=== PATIENT | female | born 1965 | race Caucasian/White ===

== ENCOUNTER → 2019-11-06 00:01 | Outpatient (RCR) | payer BC, SELFPAY | LOC: ONCMED 10-11 11:13 | PROVIDERS: Family Provider Family Medicine; Visit Provider Internal Medicine Medical Oncology | DX: Z51.11 Encounter for antineoplastic chemotherapy (principal); C50.111 Malignant neoplasm of central portion of right female breast; C77.3 Secondary and unspecified malignant neoplasm of axilla and upper limb lymph nodes; R51 Headache; F17.200 Nicotine dependence, unspecified, uncomplicated; Z17.0 Estrogen receptor positive status [ER+]; Z79.899 Other long term (current) drug therapy; Z95.828 Presence of other vascular implants and grafts; Z76.89 Persons encountering health services in other specified circumstances | CPT/HCPCS: 36415; 80053 ×2; 85007; 85025 ×4; 96367 ×2; 96372 ×2; 96411; 96413 ×2; 96417; 99214 ×2; J1100 ×2; J1453 ×2; J1642 ×2; J2469 ×2; J2505 ×2; J7040 ×2; J7050 ×2; J9000 ×2; J9070 ×4 ==

== ENCOUNTER 2019-12-06 05:39 | Outpatient (RCR) | payer BC, SELFPAY ==
[2019-11-08 13:17] LABS: Basophils % 0.7 %; Eosinophils % 0.2 %; Hematocrit 30.6 % (37.0-47.0); Hemoglobin 10.1 g/dL (11.5-15.3); Lymphocytes # 1.2 10^3/uL (0.8-4.8); Lymphocytes % 22.2 %; Mean Corpuscular Hemoglobin 32.1 pg (28.0-34.0); Mean Corpuscular Volume 97.1 fL (81-99); Mean Platelet Volume 9.7 fL (7.4-10.4); Monocytes # 0.5 10^3/uL (0.2-0.9); Monocytes % 9.2 %; Neutrophils # 3.6 10^3/uL (1.8-7.7); Neutrophils % 64.4 %; Nucleated Red Blood Cells % 0 %; Platelet Count 258 10^3/cmm (130-400); Red Blood Count 3.15 10^6/uL (4.1-5.3); Red Cell Distribution Width 13.6 % (12.1-15.1); White Blood Count 5.5 10^3/uL (4.0-10.0)
[2019-11-08] MEDS: sodium chloride 0.9% 250 ML 999 ML IV (13:35)
[2019-11-08] MEDS: pegfilgrastim 6 mg/0.6 mL Kit (onpro) SUBCUT (16:38)
--- NOTE | 2019-11-11 22:13 | ONC FU_ITS ---
[facility] Patient Note Patient: Nola Melendez Unit #: [id number]: 1965 Dictated By: Helen RendonDate of Visit: Nov 08, 2019 Onc MED Follow-Up/Prog Note Chief Complaint: Breast cancer. History of Present Illness: Ms Melendez is a 54-year-old woman with grade 2 invasive ductal carcinoma of the right breast, stage IIB (T1c, pN2a, M0), ER/NC positive and HER-2/matias negative. She had presented with an abnormal screening mammogram. The study, from 03/15/2019, showed a suspected spiculated mass with distortion and possible skin deformity in the deep midportion of the right breast centrally. The visualized lower x-ray lymph nodes appeared somewhat more plump or mildly enlarged as well. She had further evaluation with diagnostic mammogram and right breast ultrasound on 04/09/2019. The mammogram showed an irregular mass in the central to inferior right breast measuring approximately 2 cm. Ultrasound showed irregular hypoechoic mass within the central right breast measuring 1.5 x 2.0 x 1.6 cm. The margins were indistinct and there was posterior acoustic shadowing, highly suggestive of malignancy. The right axilla demonstrated at least 2 cortically thickened lymph nodes. She underwent ultrasound guided biopsy of the breast mass and of a right axillary lymph node on 04/26/2019. Pathology on the breast lesion showed grade 2 invasive ductal carcinoma which was ER positive at 94% and NC positive at 74%. The tumor was negative for overexpression of HER-2/matias, 1+ by IHC. The axillary lymph node was positive for metastatic ductal carcinoma with the size of the tumor measuring at least 7 mm. There was no extracapsular extension. The breast prognostic profile on the axillary lymph node showed ER positive at 95% and NC positive at 92%. HER-2/matias was equivocal by IHC (2+), but negative by FISH with amplification ratio 1.06 and 2.1 HER2 signals per cell. Dr Marin had seen her initially on 05/28/2019. At that point, he had recommended further evaluation with Oncotype DX. It showed a recurrence score of 19, corresponding to a recurrence risk of 16% with hormonal therapy, assuming 1-3 positive lymph nodes. A benefit with chemotherapy was not excluded. With those findings, it was felt there was not a definite indication for neoadjuvant chemotherapy. She then proceeded with right breast lumpectomy and right axillary lymph node dissection on 07/20/2019. Pathology showed invasive moderately differentiated mammary carcinoma with lobular differentiation. It measured 1.9 cm in greatest dimension. Focally did show high-grade features. Invasive carcinoma was present at the cranial and anterior margins. There was involvement in 8/8 axillary lymph nodes, the largest measuring 0.8 cm. Extracapsular extension was identified. She then underwent reexcision lumpectomy on 08/23/2019. There was no residual invasive carcinoma identified. Focal atypical lobular hyperplasia was present in the reexcision of the cranial margin, but the final margin was free of ALH. She has been in good general health. She has no prior medical illnesses. Prior surgeries have been limited to right salpingo-oophorectomy for removal of a benign cyst and tubal ligation. She underwent natural menopause at age 50. She does have a history of smoking 1/2 pack of cigarettes daily since age 16. Ms. Melendez was recommended to have 4 cycles of Adriamycin Cytoxan and then weekly Taxol for 12 weeks. She began her first cycle of Adriamycin Cytoxan on 09/26/2019. She also had Neulasta support. She is here today for follow-up. She is due for cycle 4 of 4 Adriamycin/Cytoxan. She continues with Neulasta support as she has had severe neutropenia. Her ANC on 11/05/2019 was 1200. Her Neulasta was given on 10/25/2019. I did request a stat CBC prior to authorizing treatment for her today. She states she has been coughing and has had some significant sinus drainage. She states she is had some wheezing off and on. She is had some chills but denies any actual fever. She is denies any trouble swallowing. She states the sinus symptoms have been there for about 4 days and are not improving, they are getting worse . She states she is coughing enough that it keeps her awake at night. She denies any shortness of breath other than when coughing. She denies any orthopnea. Said no lower extremity edema. She denies any rashes. She states her appetite is fair, comes and goes. 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 She denies any diarrhea or constipation. She is had no complaints of peripheral neuropathy. Other than the severe leukopenia she seems to tolerate Adriamycin Cytoxan well. She is currently having fatigue but states it is no worse than what it has been since the first cycle. Her ECOG is 1. 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 She is anxious to go back to work as much as full-time as she can. Past Medical History: She has had no prior medical illnesses. Past Surgical History: Right salpingo-oopherectomy - cyst removal Tubal ligation Portacatheter placement dr. dennis in 2019 Lumpectomy right breast in 2019 Ultrasound directed biopsy of right breast mass and right axillary lymph node in 2019 Allergies: Augmentin Medications: Dexamethasone (4 mg) Tablet Oral Take as Directed Ibuprofen 4 Tablet (of 200 mg) Oral PRN LORazepam 0.5 - 1 Tablet (of 1 mg) Oral t.i.d. PRN Prochlorperazine Maleate 1 Tablet (of 10 mg) Oral q 4 hours PRN Family History: Ms. Melendez's mother is alive. Ms. Melendez's father at age 75: pancreatic cancer. Ms. Melendez has 1 brother who is alive. She has 5 sisters: 5 alive. Father of pancreatic cancer at age 75. Mother is still living and in good health at age 87. One brother and 5 sisters also are in good health. 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 She is a daily smoker who has smoked 0.5 packs/day for 37 years. She has no history of drinking. She has indicated exposure to the following products: cigarettes. Ms. Melendez reports the following support systems: lives with spouse, significant other, family, or friends, lives in own house, supportive family/friends willing to assist with needs, and adequate transportation available for expected visits. Her diet consists of regular meals. She indicates her activity level as: light exercise. 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 She has history of smoking 1/2 pack of cigarettes daily since age 16. She does not drink alcohol. Review Of Symptoms: Constitutional Denies fevers, chills, night sweats, excessive fatigue or weight loss. Has been having headache intermittently. She states is better than it was on cycle 2. Allergic/Immunologic No reactions. Eyes Denies significant visual changes. No diplopia. No amaurosis. ENMT Denies changes in hearing, sore throat, difficulty or changes in swallowing ability, and/or sinus drainage. She states her mouth has been tender and sore but no lesions. Nystatin and Famvir relieve mouth problems. Hematologic/Lymphatic Denies easy bruising or bleeding. The patient denies any tender or palpable lymph nodes. Respiratory Denies dyspnea on exertion, chest pain, or hemoptysis. Denies orthopnea. She states she is having cough. She says at night sometimes she is coughing a lot puke this is relatively new over the last couple of weeks. She states the stuff she is coughing up is green and thick. Cardiovascular Denies anginal chest pain, palpitations or orthopnea. Gastrointestinal Denies nausea, vomiting (other than with coughing) , diarrhea, GI bleeding, or constipation. Denies change in bowel habits and/or stool color, no heartburn or early satiety. Genitourinary (F) No hematuria, hesitancy, incontinence, vaginal bleeding, discharge or other problems with urination. Musculoskeletal Denies joint pain, swelling or redness. No decreased range of motion. Integumentary Denies chronic rashes, inflammation, ulcerations or skin changes. Neurologic Denies blurred vision, and no areas of focal weakness or numbness. Normal gait. No sensory problems. Psychiatric Denies insomnia, depression, suki or mood swings. Vital Signs: Performed on Nov 08, 2019 16:10 Height - 65.00 in Temperature - 97.1 F (LOW) Pulse - 90 /min Respiration - 18 /min BP - 105/59 mm(hg) O2 Sat - 95 % (LOW) Pain - 0 Fatigue - 0 Performed on Nov 08, 2019 12:49 Height - 65.00 in Weight - 186.6 lbs (LOW) BSA - 1.92 sq.m BMI - 31.05 (HIGH) Temperature - 97.2 F (LOW) Pulse - 89 /min Respiration - 16 /min BP - 129/59 mm(hg) O2 Sat - 99 % Pain - 0,1 - No physically strenuous activity, but ambulatory and able to carry out light or sedentary work (e.g. office work, light house work). (ECOG) Physical Examination: Constitutional Alert, oriented, no acute distress. Skin pink, warm and dry. Head Normocephalic; atraumatic. Eyes Conjunctivae and sclerae are clear and without icterus. Pupils are reactive and equal. Neck Supple without masses or thyromegaly. No jugular venous distension. Hematologic/Lymphatic No petechiae or purpura. No tender or palpable lymph nodes in the cervical or supraclavicular areas. Respiratory Lungs are clear to auscultation without rhonchi or wheezing. Cardiovascular Regular rate and rhythm of heart without murmurs,clicks, gallops or rubs. Abdomen Non-tender, non-distended, no masses, ascites. Back/Spine Non-tender to palpation. Extremities No visible deformities, no cyanosis, clubbing or edema. Musculoskeletal No tenderness or swelling, normal range of motion without obvious weakness. Integumentary No rashes or lesions. Neurologic No sensory or motor deficits, normal cerebellar function, normal gait. Psychiatric Alert and oriented times three. Coherent speech. Verbalizes understanding of our discussions today. Laboratory:Test performed on Oct 18, 2019 11:55 Sodium 135 mmol/L Potassium 3.9 mmol/L Chloride 97 mmol/L CO2 25 mmol/L Anion Gap 16.9 BUN 11 mg/dL Creatinine 0.7 mg/dL Cr Clearance (Est) 129.0800 mL/min eGFR 87.2 mL/min Glucose 100 mg/dl Calcium 9.0 mg/dL Protein, Total 6.7 g/dL Albumin 5.1 g/dL Globulin 1.6 gm/dL Bilirubin, Total 0.3 mg/dL ALT (SGPT) 18 U/L AST (SGOT) 13 U/L Alkaline Phosphatase 101 U/L WBC 1.2 10 3/uL RBC 3.95 10 6/uL HGB 12.5 g/dL HCT 37.9 % MCV 95.9 fl MCH 31.6 pg MCHC 33.0 g/dl RDW 12.0 % Platelet Count 179 10 3/cmm MPV 10.6 fl Neutrophils 0.3 10 3/uL Lymphocytes 0.8 10 3/uL Monocytes 0.1 10 3/uL Eosinophils 0.0 10 3/uL Basophils 0.0 10 3/uL Neutrophil % 24.6 % Lymphocyte % 63.1 % Monocyte % 7.4 % Eosinophil % 0.8 % Basophils % 3.3 % CBC Slide Review SLIDE REVIEW PERFORM SLIDE REVIEW AGREES WITH AUTOMATED RESULTS Test performed on Oct 10, 2019 07:32 Manual Segs % 41 % Manual Bands % 13.0 % Manual Lymphs % 22.0 % Atypical Lymphs % 1.0 % Manual Monos % 15.0 % Manual Eos % 1 % Manual Basos % 1.0 % Metamyelocytes % 5.0 % Myelocytes % 1.0 % Polychromasia TRACE Poikilocytosis 1+ Stomatocytes 1+ Platelet Estimate NORMAL Manual Neutrophils Abs 5.6 10 3/cmm Manual Lymphocytes Abs 2.4 10 3/cmm Manual Monocytes Abs 1.5 10 3/cmm Manual Eosinophils Abs 0.1 10 3/cmm Manual Basophils Abs 0.1 10 3/cmm Impression: 1. Patient with grade 2 invasive ductal carcinoma of the right breast, stage IIB (T1c, pN2a, M0), ER/NC positive and HER-2/matias negative. 2. She underwent ultrasound directed biopsy of right breast mass and right axillary lymph node on 04/26/2019. Her Oncotype DX showed a recurrence score of 19, corresponding to a recurrence risk of 16% with hormonal therapy, assuming 1-3 positive lymph nodes. A benefit with chemotherapy was not excluded. With those findings, Dr Marin did not feel there is a definite indication for neoadjuvant chemotherapy. 3. She underwent right breast lumpectomy with axillary lymph node dissection on 07/20/2019 followed by reexcision lumpectomy with final margins negative. She has now completed her surgery. With involvement in 8/8 axillary lymph nodes she has been recommended to undergo adjuvant chemotherapy with dose dense Adriamycin/cyclophosphamide for 4 cycles followed by weekly Taxol for 12 cycles. She will be given prophylaxis Neulasta. Her baseline echocardiogram from 09/26/2019 shows adequate ejection fraction at 55% with no regional wall motion abnormalities. Port-A-Cath placement in the left subclavian vein per Dr. Dennis was obtained on 09/20/2019. Ms Melendez began her first cycle of adriamycin and Cytoxan on 09/26/2019. She has tolerated it well with expected side effects of neutropenia. Thus far she has not had febrile neutropenia and has tolerated growth factor support well. Plan: 1. Proceed with cycle 4/4 Adriamycin Cytoxan. Continue growth factor support. 2. Bactrim DS twice daily for 10 days for sinusitis and prophylaxis for neutropenia. 3. Tessalon Perles 100 mg 1 or 2 every 8 hours as needed cough. 4. Her CBC for today is pending. I did request a redraw today as her labs from 11/05/2019 revealed a white count of 2.4 hemoglobin was 11 platelet count was 116,000 and ANC was 1200. 5. Continue weekly interim counts. 6. She will be due back in 2 weeks at which time she will transition to the weekly Taxol portion of her chemotherapy. We have discussed the use of steroids prior to the Taxol administration. We did discuss the risk of Taxol including the allergic/infusion reactions. We discussed low blood counts, peripheral neuropathy, nausea vomiting. 7. We did discuss her headaches. She states that she thinks overall they are better. I have asked her to monitor them after today to see if they worsen with the Aloxi. If they are she will need to switch from Aloxi to Zofran for the Taxol as she will be getting it weekly and I would be concerned about her headaches worsen at that point. 8. Baseline echocardiogram from 09/26/2019 reported ejection fraction of 55% with no regional wall motion abnormalities. 9. She had a screening mammography last on 03/15/2019 which recommended additional right views which led to her current diagnosis. Left breast was unremarkable at that time. She did have diagnostic imaging of the right breast including ultrasound on 04/09/2019. 10. Ms. Melendez has been instructed to contact us in the interim should questions or problems arise. Signed By: Helen Rendon-CELENA GANNON MD <<Signature on File>>
[2019-11-14 10:50] LABS: Basophils % 3.2 %; Eosinophils % 0.8 %; Hematocrit 31.4 % (37.0-47.0); Hemoglobin 10.3 g/dL (11.5-15.3); Lymphocytes # 0.5 10^3/uL (0.8-4.8); Mean Corpuscular HGB Conc 32.8 g/dL (30.0-36.0); Mean Corpuscular Hemoglobin 33.2 pg (28.0-34.0); Mean Corpuscular Volume 101.3 fL (81-99); Monocytes % 2.4 %; Neutrophils % 30.4 %; Nucleated Red Blood Cells % 0 %; Platelet Count 164 10^3/cmm (130-400); White Blood Count 1.3 10^3/uL (4.0-10.0)
[2019-11-14 10:59] LABS: Alanine Aminotransferase 8 U/L (0-33); Albumin Level 4.5 g/dL (3.5-5.2); Alkaline Phosphatase 93 IU/L (35-105); Anion Gap 14.9 (5-19); Aspartate Amino Transferase 9 U/L (0-32); Blood Urea Nitrogen 11 mg/dL (6-20); Calcium 9.9 mg/Dl (8.6-10.0); Carbon Dioxide 24 mmol/L (22-29); Chloride 98 mmol/L (98-107); Globulin 2.1 g/dL (1.3-4.6); Glomerular Filtration Rate 104.2 mL/min (90-130); Glucose 115 mg/dL (74-109); Potassium 3.9 mmol/L (3.5-5.1); Sodium 133 mmol/L (136-145); Total Bilirubin 0.4 mg/dL (0.15-1.2); Total Protein 6.6 g/dL (6.6-8.7)
[2019-11-14 12:04] LABS: Neutrophils # 0.4 10^3/uL (1.8-7.7)
[2019-11-14 12:05] LABS: Slide Review Slide Review Perform
[2019-11-21 10:20] LABS: Basophils % 0.6 %; Hematocrit 27.8 % (37.0-47.0); Lymphocytes # 0.8 10^3/uL (0.8-4.8); Lymphocytes % 25.2 %; Mean Corpuscular HGB Conc 32.4 g/dL (30.0-36.0); Mean Corpuscular Hemoglobin 31.9 pg (28.0-34.0); Mean Corpuscular Volume 98.6 fL (81-99); Mean Platelet Volume 10.7 fL (7.4-10.4); Monocytes # 0.3 10^3/uL (0.2-0.9); Monocytes % 7.8 %; Neutrophils # 2.1 10^3/uL (1.8-7.7); Nucleated Red Blood Cells % 0 %; Platelet Count 151 10^3/cmm (130-400); Red Blood Count 2.82 10^6/uL (4.1-5.3); Red Cell Distribution Width 14.3 % (12.1-15.1); White Blood Count 3.3 10^3/uL (4.0-10.0)
[2019-11-21 10:40] LABS: Alanine Aminotransferase 8 U/L (0-33); Albumin Level 4.5 g/dL (3.5-5.2); Alkaline Phosphatase 75 IU/L (35-105); Anion Gap 15.8 (5-19); Aspartate Amino Transferase 9 U/L (0-32); Blood Urea Nitrogen 7 mg/dL (6-20); Calcium 9.6 mg/Dl (8.6-10.0); Carbon Dioxide 25 mmol/L (22-29); Chloride 102 mmol/L (98-107); Globulin 1.7 g/dL (1.3-4.6); Glomerular Filtration Rate 87.2 mL/min (90-130); Glucose 112 mg/dL (74-109); Potassium 3.8 mmol/L (3.5-5.1); Sodium 139 mmol/L (136-145); Total Bilirubin 0.2 mg/dL (0.15-1.2); Total Protein 6.2 g/dL (6.6-8.7)
[2019-11-22] MEDS: sodium chloride 0.9% 250 ML 75 ML IV (13:30)
[2019-11-22] MEDS: acetaminophen 325 mg Tablet 650 MG PO (13:30)
--- NOTE | 2019-11-26 22:03 | ONC FU_ITS ---
[facility] Patient Note Patient: Nola Melendez Unit #: [id number]: 1965 Dictated By: Helen RendonDate of Visit: Nov 22, 2019 Onc MED Follow-Up/Prog Note Chief Complaint: Breast cancer. History of Present Illness: Mrs Melendez is a 54-year-old woman with grade 2 invasive ductal carcinoma of the right breast, stage IIB (T1c, pN2a, M0), ER/IA positive and HER-2/matias negative. She had presented with an abnormal screening mammogram. The study, from 03/15/2019, showed a suspected spiculated mass with distortion and possible skin deformity in the deep midportion of the right breast centrally. The visualized lower x-ray lymph nodes appeared somewhat more plump or mildly enlarged as well. She had further evaluation with diagnostic mammogram and right breast ultrasound on 04/09/2019. The mammogram showed an irregular mass in the central to inferior right breast measuring approximately 2 cm. Ultrasound showed irregular hypoechoic mass within the central right breast measuring 1.5 x 2.0 x 1.6 cm. The margins were indistinct and there was posterior acoustic shadowing, highly suggestive of malignancy. The right axilla demonstrated at least 2 cortically thickened lymph nodes. She underwent ultrasound guided biopsy of the breast mass and of a right axillary lymph node on 04/26/2019. Pathology on the breast lesion showed grade 2 invasive ductal carcinoma which was ER positive at 94% and IA positive at 74%. The tumor was negative for overexpression of HER-2/matias, 1+ by IHC. The axillary lymph node was positive for metastatic ductal carcinoma with the size of the tumor measuring at least 7 mm. There was no extracapsular extension. The breast prognostic profile on the axillary lymph node showed ER positive at 95% and IA positive at 92%. HER-2/matias was equivocal by IHC (2+), but negative by FISH with amplification ratio 1.06 and 2.1 HER2 signals per cell. Dr Marin had seen her initially on 05/28/2019. At that point, he had recommended further evaluation with Oncotype DX. It showed a recurrence score of 19, corresponding to a recurrence risk of 16% with hormonal therapy, assuming 1-3 positive lymph nodes. A benefit with chemotherapy was not excluded. With those findings, it was felt there was not a definite indication for neoadjuvant chemotherapy. She then proceeded with right breast lumpectomy and right axillary lymph node dissection on 07/20/2019. Pathology showed invasive moderately differentiated mammary carcinoma with lobular differentiation. It measured 1.9 cm in greatest dimension. Focally did show high-grade features. Invasive carcinoma was present at the cranial and anterior margins. There was involvement in 8/8 axillary lymph nodes, the largest measuring 0.8 cm. Extracapsular extension was identified. She then underwent reexcision lumpectomy on 08/23/2019. There was no residual invasive carcinoma identified. Focal atypical lobular hyperplasia was present in the reexcision of the cranial margin, but the final margin was free of ALH. She has been in good general health. She has no prior medical illnesses. Prior surgeries have been limited to right salpingo-oophorectomy for removal of a benign cyst and tubal ligation. She underwent natural menopause at age 50. She does have a history of smoking 1/2 pack of cigarettes daily since age 16. Ms. Melendez was recommended to have 4 cycles of Adriamycin Cytoxan and then weekly Taxol for 12 weeks. She began her first cycle of Adriamycin Cytoxan on 09/26/2019. She also had Neulasta support. She is here today for follow-up. She completed 4 cycles later months by toxin on May 08, 2020. She will now begin weekly Taxol for 12 weeks. She states overall she is feeling pretty good. She is been able to work some. She denies any new concerns. She is had no new pain. She states she does have some pre-existing neuropathy but states is no worse than what it has been. She denies any shortness of breath orthopnea. She is had no chest pain or palpitations. She denies any fever, chills or any signs of infection for at least the last 72 hours. My concern today is that her eyes just water all the time . She has had complete alopecia although starting to have some hair growth return. She denies any sneezing, discolored nasal drainage, drainage from the eyes swelling or pain. She has not really tried anything for it. She is advised she can try [id number] antihistamine such as Claritin or Benadryl for does not make her sleepy. She is instructed let us know if that is not improving. She denies any diarrhea or constipation. States her bladder is normal. Her ECOG is 0. Past Medical History: She has had no prior medical illnesses. Past Surgical History: Right salpingo-oopherectomy - cyst removal Tubal ligation Portacatheter placement dr. dennis in 2019 Lumpectomy right breast in 2019 Ultrasound directed biopsy of right breast mass and right axillary lymph node in 2019 Allergies: Augmentin Medications: Dexamethasone (4 mg) Tablet Oral Take as Directed Ibuprofen 4 Tablet (of 200 mg) Oral PRN LORazepam 0.5 - 1 Tablet (of 1 mg) Oral t.i.d. PRN Prochlorperazine Maleate 1 Tablet (of 10 mg) Oral q 4 hours PRN Family History: Ms. Melendez's mother is alive. Ms. Melendez's father at age 75: pancreatic cancer. Ms. Melendez has 1 brother who is alive. She has 5 sisters: 5 alive. Father of pancreatic cancer at age 75. Mother is still living and in good health at age 87. One brother and 5 sisters also are in good health. Social History: Ms. 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 She is a daily smoker who has smoked 0.5 packs/day for 37 years. She has no history of drinking. She has indicated exposure to the following products: cigarettes. Ms. Melendez reports the following support systems: lives with spouse, significant other, family, or friends, lives in own house, supportive family/friends willing to assist with needs, and adequate transportation available for expected visits. Her diet consists of regular meals. She indicates her activity level as: light exercise. 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 She has history of smoking 1/2 pack of cigarettes daily since age 16. She does not drink alcohol. Review Of Symptoms: Constitutional Denies fevers, chills, night sweats, excessive fatigue or weight loss. Allergic/Immunologic No reactions. Eyes Denies significant visual changes. No diplopia. No amaurosis. ENMT Denies changes in hearing, sore throat, difficulty or changes in swallowing ability, and/or sinus drainage. She states her mouth has been tender and sore but no lesions. Nystatin and Famvir relieve mouth problems. Hematologic/Lymphatic Denies easy bruising or bleeding. The patient denies any tender or palpable lymph nodes. Respiratory Denies dyspnea on exertion, chest pain, or hemoptysis. Denies orthopnea. Cardiovascular Denies anginal chest pain, palpitations or orthopnea. Gastrointestinal Denies nausea, vomiting (other than with coughing) , diarrhea, GI bleeding, or constipation. Denies change in bowel habits and/or stool color or early satiety. States she had one episode on Tuesday emesis. She states she has burning in her acid with flex symptoms. She states that the taste was acidy as well. She has had some heartburn off and on but not as severe. Genitourinary (F) No hematuria, hesitancy, incontinence, vaginal bleeding, discharge or other problems with urination. Musculoskeletal Denies joint pain, swelling or redness. No decreased range of motion. Integumentary Denies chronic rashes, inflammation, ulcerations or skin changes. Neurologic Denies blurred vision, and no areas of focal weakness or numbness. Normal gait. No sensory problems. Psychiatric Denies insomnia, depression, suki or mood swings. Vital Signs: Performed on Nov 22, 2019 16:15 Height - 65.00 in Temperature - 98.7 F Pulse - 97 /min Respiration - 18 /min BP - 108/70 mm(hg) O2 Sat - 95 % (LOW) Pain - 0 Fatigue - 0 Performed on Nov 22, 2019 12:38 Height - 65.00 in Weight - 184.2 lbs (LOW) BSA - 1.91 sq.m BMI - 30.65 (HIGH) Temperature - 97.0 F (LOW) Pulse - 106 /min (HIGH) Respiration - 24 /min BP - 144/76 mm(hg) (HIGH) O2 Sat - 100 % Pain - 0,0 - Fully active, able to carry on all predisease activities without restrictions. (ECOG) Physical Examination: Constitutional Alert, oriented, no acute distress. Skin pink, warm and dry. Head Normocephalic; atraumatic. Eyes Conjunctivae and sclerae are clear and without icterus. Pupils are reactive and equal. ENMT No oral exudates, ulcers, masses, thrush but does have mild mucositis. Oropharynx clear. Tongue irritated but no lesions. Neck Supple without masses or thyromegaly. No jugular venous distension. Hematologic/Lymphatic No petechiae or purpura. No tender or palpable lymph nodes in the cervical or supraclavicular areas. Respiratory Lungs are clear to auscultation without rhonchi or wheezing. Cardiovascular Regular rate and rhythm of heart without murmurs,clicks, gallops or rubs. Abdomen Non-tender, non-distended, no masses, ascites. Back/Spine Non-tender to palpation. Extremities No visible deformities, no cyanosis, clubbing or edema. Musculoskeletal No tenderness or swelling, normal range of motion without obvious weakness. Integumentary No rashes or lesions. Neurologic No sensory or motor deficits, normal cerebellar function, normal gait. Psychiatric Alert and oriented times three. Coherent speech. Verbalizes understanding of our discussions today. Laboratory:Test performed on Nov 21, 2019 09:47 Glucose 112 mg/dL BUN 7 mg/dL Creatinine 0.7 mg/dL Cr Clearance (Est) 129.08 mL/min Sodium 139 mmol/L Potassium 3.8 mmol/L Chloride 102 mmol/L CO2 25 mmol/L Calcium 9.6 mg/dL Protein, Total 6.2 g/dL Albumin 4.5 g/dL Bilirubin, Total 0.2 mg/dL Alkaline Phosphatase 75 IU/L AST (SGOT) 9 IU/L ALT (SGPT) 8 IU/L WBC 3.3 10^9/L RBC 2.82 10^12/L HGB 9.0 g/dL HCT 27.8 % MCV 98.6 fl MCH 31.9 pg MCHC 32.4 g/dL RDW 14.3 % Platelet Count 151 10^9/L MPV 10.7 fL Neutrophils (Gran) 2.1 10^9/L Lymphocytes 0.8 10^9/L Monocytes 0.3 10^9/L Eosinophils 0.0 10^9/L Basophils 0.0 10^9/L Manual Lymphocytes 25.2 % Manual Monocytes 7.8 % Manual Eosinophils 0.0 % Manual Basophils 0.6 % NRBCs 0.0 /100 WBC Test performed on Nov 14, 2019 10:14 Globulin 2.1 g/dL Neutrophil % 30.4 % Lymphocyte % 40.0 % Monocyte % 2.4 % Basophils % 3.2 % Test performed on Oct 18, 2019 11:55 Anion Gap 16.9 eGFR 87.2 mL/min Eosinophil % 0.8 % CBC Slide Review SLIDE REVIEW PERFORM SLIDE REVIEW AGREES WITH AUTOMATED RESULTS Test performed on Oct 10, 2019 07:32 Manual Segs % 41 % Manual Bands % 13.0 % Atypical Lymphs % 1.0 % Metamyelocytes % 5.0 % Myelocytes % 1.0 % Polychromasia TRACE Poikilocytosis 1+ Stomatocytes 1+ Platelet Estimate NORMAL Manual Neutrophils Abs 5.6 10 3/cmm Manual Lymphocytes Abs 2.4 10 3/cmm Manual Monocytes Abs 1.5 10 3/cmm Manual Eosinophils Abs 0.1 10 3/cmm Manual Basophils Abs 0.1 10 3/cmm Impression: 1. Patient with grade 2 invasive ductal carcinoma of the right breast, stage IIB (T1c, pN2a, M0), ER/IA positive and HER-2/matias negative. 2. She underwent ultrasound directed biopsy of right breast mass and right axillary lymph node on 04/26/2019. Her Oncotype DX showed a recurrence score of 19, corresponding to a recurrence risk of 16% with hormonal therapy, assuming 1-3 positive lymph nodes. A benefit with chemotherapy was not excluded. With those findings, Dr Marin did not feel there is a definite indication for neoadjuvant chemotherapy. 3. She underwent right breast lumpectomy with axillary lymph node dissection on 07/20/2019 followed by reexcision lumpectomy with final margins negative. She has now completed her surgery. With involvement in 8/8 axillary lymph nodes she has been recommended to undergo adjuvant chemotherapy with dose dense Adriamycin/cyclophosphamide for 4 cycles followed by weekly Taxol for 12 cycles. She will be given prophylaxis Neulasta. Her baseline echocardiogram from 09/26/2019 shows adequate ejection fraction at 55% with no regional wall motion abnormalities. Port-A-Cath placement in the left subclavian vein per Dr. Dennis was obtained on 09/20/2019. Ms Melendez began her first cycle of adriamycin and Cytoxan on 09/26/2019. She has tolerated it well with expected side effects of neutropenia. Thus far she has not had febrile neutropenia and has tolerated growth factor support well. Mrs. Melendez received her last dose of mitomycin Cytoxan on November 08, 2019. She now begins weekly paclitaxel. Plan: 1. Proceed with week 1 paclitaxel. She completed Adriamycin Cytoxan on 11/08/2019. 2. Steroid compliance confirmed. 3. Labs from November 21, 2019 were reviewed in detail and discussed with Ms. Melendez and her . WBC 3.3, hemoglobin 9 platelets 151,000 ANC is 2100 creatinine 0.7 LFTs are normal. 4. She states she is been having some watery eyes most likely this is from the patient she is been advised she could try Claritin for now let us know if that is not working. 5. She does have some pre-existing neuropathy but states is no worse at this time. 6. We did discuss using a PPI for her heartburn but she does not want start that at this time. She states she will try Tums or Mylanta and let us know she if is doing a regular basis. 7. We will plan to have her return in 1 week with CBC CMP which time she will be due for week 2/12 of paclitaxel. She was reminded to take her steroids. 8. Baseline echocardiogram from 09/26/2019 reported ejection fraction of 55% with no regional wall motion abnormalities. 9. She had a screening mammography last on 03/15/2019 which recommended additional right views which led to her current diagnosis. Left breast was unremarkable at that time. She did have diagnostic imaging of the right breast including ultrasound on 04/09/2019. 10. Ms. Melendez has been instructed to contact us in the interim should questions or problems arise. 11. We did discuss possible side effects of the paclitaxel including worsening neuropathy, nausea, low blood counts, fatigue and anaphylaxis and infusion reaction such as fever, chills, hypertension, hypotension, rash, shortness of breath, anxiety, chest pain, shortness of breath, diaphoresis amongst others. Signed By: Helen Rednon-, AOCNP Gulshan Marin MD <<Signature on File>>
[2019-11-28 10:50] LABS: Basophils # 0.1 10^3/uL (0.0-0.1); Basophils % 1.6 %; Eosinophils % 0.3 %; Hematocrit 28.2 % (37.0-47.0); Hemoglobin 9.4 g/dL (11.5-15.3); Lymphocytes # 0.8 10^3/uL (0.8-4.8); Lymphocytes % 25.5 %; Mean Corpuscular HGB Conc 33.3 g/dL (30.0-36.0); Mean Corpuscular Hemoglobin 33.6 pg (28.0-34.0); Mean Corpuscular Volume 100.7 fL (81-99); Mean Platelet Volume 10.1 fL (7.4-10.4); Monocytes # 0.1 10^3/uL (0.2-0.9); Neutrophils # 2.2 10^3/uL (1.8-7.7); Neutrophils % 67.4 %; Nucleated Red Blood Cells % 0 %; Platelet Count 323 10^3/cmm (130-400); Red Cell Distribution Width 16.1 % (12.1-15.1); White Blood Count 3.2 10^3/uL (4.0-10.0)
[2019-11-28 11:02] LABS: Alanine Aminotransferase 13 U/L (0-33); Albumin Level 4.3 g/dL (3.5-5.2); Alkaline Phosphatase 68 IU/L (35-105); Anion Gap 15.9 (5-19); Aspartate Amino Transferase 10 U/L (0-32); Blood Urea Nitrogen 9 mg/dL (6-20); Calcium 10.1 mg/Dl (8.6-10.0); Carbon Dioxide 24 mmol/L (22-29); Chloride 97 mmol/L (98-107); Globulin 2.3 g/dL (1.3-4.6); Glomerular Filtration Rate 87.2 mL/min (90-130); Glucose 114 mg/dL (74-109); Potassium 3.9 mmol/L (3.5-5.1); Sodium 133 mmol/L (136-145); Total Bilirubin 0.3 mg/dL (0.15-1.2); Total Protein 6.6 g/dL (6.6-8.7)
[2019-11-29] MEDS: sodium chloride 0.9% 250 ML 75 ML IV (09:10)
[2019-11-29] MEDS: acetaminophen 325 mg Tablet 650 MG PO (09:10)
--- NOTE | 2019-12-01 12:55 | ONC FU_ITS ---
Dr. Mrain Patient Follow-Up Note Patient: Nola Melendez Unit #: [id number]: 1965 Dicatated By: Gulshan Marin M.D.Date of Visit:Nov 29, 2019 Onc Med Follow-up/Prog Note Chief Complaint: Breast cancer. History of Present Illness: This is a 53-year-old woman with grade 2 invasive ductal carcinoma of the right breast, stage IIB (T1c, pN2a, M0), ER/WV positive and HER-2/matias negative. She had presented with an abnormal screening mammogram. The study, from 03/15/2019, showed a suspected spiculated mass with distortion and possible skin deformity in the deep midportion of the right breast centrally. The visualized lower x-ray lymph nodes appeared somewhat more plump or mildly enlarged as well. She had further evaluation with diagnostic mammogram and right breast ultrasound on 04/09/2019. The mammogram showed an irregular mass in the central to inferior right breast measuring approximately 2 cm. Ultrasound showed irregular hypoechoic mass within the central right breast measuring 1.5 x 2.0 x 1.6 cm. The margins were indistinct and there was posterior acoustic shadowing, highly suggestive of malignancy. The right axilla demonstrated at least 2 cortically thickened lymph nodes. She underwent ultrasound guided biopsy of the breast mass and of a right axillary lymph node on 04/26/2019. Pathology on the breast lesion showed grade 2 invasive ductal carcinoma which was ER positive at 94% and WV positive at 74%. The tumor was negative for overexpression of HER-2/matias, 1+ by IHC. The axillary lymph node was positive for metastatic ductal carcinoma with the size of the tumor measuring at least 7 mm. There was no extracapsular extension. The breast prognostic profile on the axillary lymph node showed ER positive at 95% and WV positive at 92%. HER-2/matias was equivocal by IHC (2+), but negative by FISH with amplification ratio 1.06 and 2.1 HER2 signals per cell. I had seen her initially on 05/28/2019. At that point I had recommended further evaluation with Oncotype DX. It showed a recurrence score of 19, corresponding to a recurrence risk of 16% with hormonal therapy, assuming 1-3 positive lymph nodes. A benefit with chemotherapy was not excluded. With those findings, I did not feel there is a definite indication for neoadjuvant chemotherapy. She then proceeded with right breast lumpectomy and right axillary lymph node dissection on 07/20/2019. Pathology showed invasive moderately differentiated mammary carcinoma with lobular differentiation. It measured 1.9 cm in greatest dimension. Focally did show high-grade features. Invasive carcinoma was present at the cranial and anterior margins. There was involvement in 8/8 axillary lymph nodes, the largest measuring 0.8 cm. Extracapsular extension was identified. She then underwent reexcision lumpectomy on 08/23/2019. There was no residual invasive carcinoma identified. Focal atypical lobular hyperplasia was present in the reexcision of the cranial margin, but the final margin was free of ALH. She has been in good general health. She has no prior medical illnesses. Prior surgeries have been limited to right salpingo-oophorectomy for removal of a benign cyst and tubal ligation. She underwent natural menopause at age 50. She does have a history of smoking 1/2 pack of cigarettes daily since age 16. INTERIM HISTORY: She began cycle 1 of Adriamycin/cyclophosphamide on 09/26/2019. She had significant fatigue following the chemotherapy, but she was able to tolerate it with acceptable toxicity. She then continued with cycle 2 on 10/11/2019, with cycle 3 on 10/25/2019, and with cycle 4 on 11/08/2019. On 11/22/2019 she began her 1st of 12 planned weekly cycles of paclitaxel. She tolerated it without acute toxicity. She is seen for a scheduled visit. She has been feeling pretty good generally. She has tolerated her initial infusion of paclitaxel without significant toxicity. She says her energy is a little better now. She is still working. ECOG score is 1. Her appetite is about the same. She does not have fever. She has been having some hot flashes and sweating. Her mouth occasionally feels a little sore. She has a little bit of cough. She does not complain of shortness of breath or chest pain. She has had no nausea. Bowel function has been okay. She has frequent urination. She has had pain occasionally in her legs, mainly the thighs. She has just occasional numbness/tingling in her fingertips. Medications: Dexamethasone (4 mg) Tablet Oral Take as Directed, Ibuprofen 4 Tablet (of 200 mg) Oral PRN, LORazepam 0.5 - 1 Tablet (of 1 mg) Oral t.i.d. PRN, Prochlorperazine Maleate 1 Tablet (of 10 mg) Oral q 4 hours PRN Allergies: Augmentin Review of Systems: Constitutional - Her energy is pretty good. She continues to work. Her appetite is good and her weight is down a few pounds. No fever or chills. She has hot flashes and sweating. ECOG score is 1, ENMT - No sinus congestion/drainage. No mouth sores. She has occasional sore throat. No difficulty swallowing, Hematologic/Lymphatic - No abnormal bruising or bleeding, Respiratory - No shortness of breath. She has a slight cough. No pleuritic pain or hemoptysis, Cardiovascular - No angina pain. No palpitations, Gastrointestinal - No nausea or vomiting. No heartburn or acid reflux. No diarrhea or constipation. No blood in the stool or black stools, Genitourinary (F) - No dysuria or hematuria. She has urinary frequency. No urgency or incontinence, Musculoskeletal - She occasionally has pain in her thighs, Integumentary - No skin complications, Neurologic - No headache or dizziness. She has occasional numbness and tingling in her fingertips, Psychiatric - No anxiety or depression. No insomnia. Vital Signs: Performed on Nov 29, 2019 08:24 Height - 65.00 in Weight - 180.2 lbs (LOW) BSA - 1.89 sq.m BMI - 29.99 Temperature - 97.4 F (LOW) Pulse - 117 /min (HIGH) Respiration - 20 /min BP - 129/75 mm(hg) O2 Sat - 99 % Pain - 0 Physical Examination: Constitutional - She looks pretty good generally, Eyes - Sclerae nonicteric. Conjunctivae clear, ENMT - No lesions noted in the oral cavity, Hematologic/Lymphatic - No cervical, clavicular, or axillary adenopathy, Respiratory - Lungs sound clear, Cardiovascular - Heart rhythm is regular. There is no murmur, gallop, or rub noted, Abdomen - Soft. Liver and spleen are not enlarged. There is no abdominal mass or ascites noted and there is no inguinal adenopathy, Extremities - No edema, Neurologic - No focal neurologic deficits noted. Lab/Imaging: CBC shows hemoglobin 9.4 g, white blood cell count 3200, and platelet count 323,000. Comprehensive metabolic profile is unremarkable. Impression: 1. Patient with grade 2 invasive ductal carcinoma of the right breast, stage IIB (T1c, pN2a, M0), ER/WV positive and HER-2/matias negative. 2. She underwent ultrasound directed biopsy of right breast mass and right axillary lymph node on 04/26/2019. Her Oncotype DX showed a recurrence score of 19, corresponding to a recurrence risk of 16% with hormonal therapy, assuming 1-3 positive lymph nodes. A benefit with chemotherapy was not excluded. With those findings, I did not feel there was a definite indication for neoadjuvant chemotherapy. 3. She underwent right breast lumpectomy with axillary lymph node dissection on 07/20/2019 followed by reexcision lumpectomy with final margins negative. She is undergoing adjuvant chemotherapy with dose dense Adriamycin/cyclophosphamide followed by weekly Taxol. She completed 4 cycles of Adriamycin/cyclophosphamide from 09/26/2019 thru 11/08/2019. She had significant fatigue with it, but she otherwise tolerated it well. She then began her 1st of 12 planned weekly cycles of paclitaxel on 11/22/2019. She has been having some pain in the thighs following that treatment, and she also is having some slight numbness/tingling in the fingertips. She has moderately anemic, but overall she appears to be tolerating treatment very well. Plan: She will proceed with week 2 paclitaxel. The dosage remain the same. She returns in 1 week. Signed By: Gulshan Marin M.D. <<Signature on File>>
[2019-12-05 09:28] LABS: Basophils % 1.1 %; Eosinophils # 0.1 10^3/uL (0.0-0.8); Eosinophils % 2.2 %; Hematocrit 30.2 % (37.0-47.0); Hemoglobin 9.8 g/dL (11.5-15.3); Lymphocytes # 0.6 10^3/uL (0.8-4.8); Lymphocytes % 20.2 %; Mean Corpuscular HGB Conc 32.5 g/dL (30.0-36.0); Mean Corpuscular Hemoglobin 34.9 pg (28.0-34.0); Mean Corpuscular Volume 107.5 fL (81-99); Mean Platelet Volume 10.1 fL (7.4-10.4); Monocytes # 0.1 10^3/uL (0.2-0.9); Monocytes % 4.4 %; Neutrophils # 1.9 10^3/uL (1.8-7.7); Neutrophils % 71.4 %; Nucleated Red Blood Cells % 0 %; Platelet Count 306 10^3/cmm (130-400); Red Blood Count 2.81 10^6/uL (4.1-5.3); Red Cell Distribution Width 18.6 % (12.1-15.1); White Blood Count 2.7 10^3/uL (4.0-10.0)
[2019-12-05 09:41] LABS: Alanine Aminotransferase 22 U/L (0-33); Albumin Level 4.4 g/dL (3.5-5.2); Alkaline Phosphatase 70 IU/L (35-105); Anion Gap 14.8 (5-19); Aspartate Amino Transferase 16 U/L (0-32); Blood Urea Nitrogen 10 mg/dL (6-20); Calcium 9.8 mg/dL (8.5-10.5); Carbon Dioxide 25 mmol/L (22-29); Chloride 98 mmol/L (98-107); Globulin 2.6 g/dL (1.3-4.6); Glomerular Filtration Rate 74.7 mL/min (90-130); Glucose 141 mg/dL (74-109); Potassium 3.8 mmol/L (3.5-5.1); Sodium 134 mmol/L (136-145); Total Bilirubin 0.3 mg/dL (0.15-1.2)
[2019-12-06] MEDS: sodium chloride 0.9% 250 ML 75 ML IV (09:15)
[2019-12-06] MEDS: acetaminophen 325 mg Tablet 650 MG PO (09:35)
== END 2019-12-07 23:59 | disposition home or self-care (01) ==
LOC: ONCMED 05:39
PROVIDERS: Nurse Practitioner; Family Provider Family Medicine; Visit Provider Internal Medicine Medical Oncology
DX: Z51.11 Encounter for antineoplastic chemotherapy (principal); C50.111 Malignant neoplasm of central portion of right female breast; C77.3 Secondary and unspecified malignant neoplasm of axilla and upper limb lymph nodes; D70.1 Agranulocytosis secondary to cancer chemotherapy; T45.1X5A Adverse effect of antineoplastic and immunosuppressive drugs, initial encounter; F17.210 Nicotine dependence, cigarettes, uncomplicated; J32.9 Chronic sinusitis, unspecified; R05 Cough; R51 Headache; D64.9 Anemia, unspecified; Z17.0 Estrogen receptor positive status [ER+]
CPT/HCPCS: 36415; 80053; 85025; 96367; 96372; 96413; 96417; 99214; J1100; J1200; J1453; J2405; J2469; J2505; J3490; J7040; J7050; J9000; J9070; J9267

== ENCOUNTER 2020-01-03 05:46 | Outpatient (RCR) | payer BC, SELFPAY ==
[2019-12-12 07:57] LABS: Eosinophils # 0.1 10^3/uL (0.0-0.8); Eosinophils % 3.4 %; Hematocrit 32.4 % (37.0-47.0); Hemoglobin 10.6 g/dL (11.5-15.3); Lymphocytes # 1.1 10^3/uL (0.8-4.8); Lymphocytes % 25.9 %; Mean Corpuscular HGB Conc 32.7 g/dL (30.0-36.0); Mean Corpuscular Volume 106.9 fL (81-99); Mean Platelet Volume 9.6 fL (7.4-10.4); Monocytes # 0.4 10^3/uL (0.2-0.9); Monocytes % 9.1 %; Neutrophils # 2.5 10^3/uL (1.8-7.7); Neutrophils % 59.4 %; Nucleated Red Blood Cells % 0 %; Platelet Count 373 10^3/cmm (130-400); Red Blood Count 3.03 10^6/uL (4.1-5.3); Red Cell Distribution Width 19.1 % (12.1-15.1); White Blood Count 4.2 10^3/uL (4.0-10.0)
[2019-12-12 08:12] LABS: Alanine Aminotransferase 22 U/L (0-33); Albumin Level 4.5 g/dL (3.5-5.2); Alkaline Phosphatase 78 IU/L (35-105); Anion Gap 13.8 (5-19); Aspartate Amino Transferase 16 U/L (0-32); Blood Urea Nitrogen 7 mg/dL (6-20); Calcium 10.1 mg/dL (8.5-10.5); Carbon Dioxide 25 mmol/L (22-29); Chloride 101 mmol/L (98-107); Globulin 2.8 g/dL (1.3-4.6); Glomerular Filtration Rate 87.2 mL/min (90-130); Glucose 113 mg/dL (65-115); Potassium 3.8 mmol/L (3.5-5.1); Sodium 136 mmol/L (136-145); Total Bilirubin 0.2 mg/dL (0.15-1.2); Total Protein 7.3 g/dL (6.6-8.7)
[2019-12-13] MEDS: acetaminophen 325 mg Tablet 650 MG PO (12:00)
[2019-12-13] MEDS: sodium chloride 0.9% 250 ML IV (12:05)
--- NOTE | 2019-12-16 17:42 | ONC FU_ITS ---
[facility] Patient Note Patient: Nola Melendez Unit #: [id number]: 1965 Dictated By: Helen RendonDate of Visit: Dec 13, 2019 Onc MED Follow-Up/Prog Note Chief Complaint: Breast cancer. History of Present Illness: Mrs Melendez is a 54-year-old woman with grade 2 invasive ductal carcinoma of the right breast, stage IIB (T1c, pN2a, M0), ER/NM positive and HER-2/matias negative. She had presented with an abnormal screening mammogram. The study, from 03/15/2019, showed a suspected spiculated mass with distortion and possible skin deformity in the deep midportion of the right breast centrally. The visualized lower x-ray lymph nodes appeared somewhat more plump or mildly enlarged as well. She had further evaluation with diagnostic mammogram and right breast ultrasound on 04/09/2019. The mammogram showed an irregular mass in the central to inferior right breast measuring approximately 2 cm. Ultrasound showed irregular hypoechoic mass within the central right breast measuring 1.5 x 2.0 x 1.6 cm. The margins were indistinct and there was posterior acoustic shadowing, highly suggestive of malignancy. The right axilla demonstrated at least 2 cortically thickened lymph nodes. She underwent ultrasound guided biopsy of the breast mass and of a right axillary lymph node on 04/26/2019. Pathology on the breast lesion showed grade 2 invasive ductal carcinoma which was ER positive at 94% and NM positive at 74%. The tumor was negative for overexpression of HER-2/matias, 1+ by IHC. The axillary lymph node was positive for metastatic ductal carcinoma with the size of the tumor measuring at least 7 mm. There was no extracapsular extension. The breast prognostic profile on the axillary lymph node showed ER positive at 95% and NM positive at 92%. HER-2/matias was equivocal by IHC (2+), but negative by FISH with amplification ratio 1.06 and 2.1 HER2 signals per cell. Dr Marin had seen her initially on 05/28/2019. At that point, he had recommended further evaluation with Oncotype DX. It showed a recurrence score of 19, corresponding to a recurrence risk of 16% with hormonal therapy, assuming 1-3 positive lymph nodes. A benefit with chemotherapy was not excluded. With those findings, it was felt there was not a definite indication for neoadjuvant chemotherapy. She then proceeded with right breast lumpectomy and right axillary lymph node dissection on 07/20/2019. Pathology showed invasive moderately differentiated mammary carcinoma with lobular differentiation. It measured 1.9 cm in greatest dimension. Focally did show high-grade features. Invasive carcinoma was present at the cranial and anterior margins. There was involvement in 8/8 axillary lymph nodes, the largest measuring 0.8 cm. Extracapsular extension was identified. She then underwent reexcision lumpectomy on 08/23/2019. There was no residual invasive carcinoma identified. Focal atypical lobular hyperplasia was present in the reexcision of the cranial margin, but the final margin was free of ALH. She has been in good general health. She has no prior medical illnesses. Prior surgeries have been limited to right salpingo-oophorectomy for removal of a benign cyst and tubal ligation. She underwent natural menopause at age 50. She does have a history of smoking 1/2 pack of cigarettes daily since age 16. Ms. Melendez was recommended to have 4 cycles of Adriamycin Cytoxan and then weekly Taxol for 12 weeks. She began her first cycle of Adriamycin Cytoxan on 09/26/2019. She also had Neulasta support. She is here today for follow-up. She completed 4 cycles later months by toxin on May 08, 2020. She began weekly Taxol for 12 weeks on November 22, 2019. She has tolerated it well thus far. This will be her fourth week. She states overall she continues to do well. She is working some. She states if she is just too tired or feels washed out she will just go home and that is fine with work. She denies any fever chills but states she thinks she had a stomach bug on Tuesday she did have quite a bit of diarrhea. She did have some nausea but states it did not last very long at all. She states the diarrhea has resolved currently as well. She states her family had however had the same symptoms in the past around for about a week before she got it. She states her now has symptoms of bronchitis and that he is coughing. His been productive cough and he has been wheezing. She does not have any antibiotics on hand in the event that she develops the same symptoms. She denies any sore throat. She states her mouth is doing better she still has some intermittent mouth sores but is relieved with her current regimen. She denies any new pain. She is had no new neuropathy. She states she thinks she is doing pretty good overall. Her appetite count of comes and goes. She denies any pain. Her ECOG is 1. Past Medical History: She has had no prior medical illnesses. Past Surgical History: Right salpingo-oopherectomy - cyst removal Tubal ligation Portacatheter placement dr. dennis in 2019 Lumpectomy right breast in 2019 Ultrasound directed biopsy of right breast mass and right axillary lymph node in 2019 Allergies: Augmentin Medications: Dexamethasone (4 mg) Tablet Oral Take as Directed Ibuprofen 4 Tablet (of 200 mg) Oral PRN LORazepam 0.5 - 1 Tablet (of 1 mg) Oral t.i.d. PRN Prochlorperazine Maleate 1 Tablet (of 10 mg) Oral q 4 hours PRN Family History: Ms. Melendez's mother is alive. Ms. Melendez's father at age 75: pancreatic cancer. Ms. Melendez has 1 brother who is alive. She has 5 sisters: 5 alive. Father of pancreatic cancer at age 75. Mother is still living and in good health at age 87. One brother and 5 sisters also are in good health. Social History: Ms. 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 She is a daily smoker who has smoked 0.5 packs/day for 37 years. She has no history of drinking. She has indicated exposure to the following products: cigarettes. Ms. Melendez reports the following support systems: lives with spouse, significant other, family, or friends, lives in own house, supportive family/friends willing to assist with needs, and adequate transportation available for expected visits. Her diet consists of regular meals. She indicates her activity level as: light exercise. 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 She has history of smoking 1/2 pack of cigarettes daily since age 16. She does not drink alcohol. Review Of Symptoms: Constitutional Denies fevers, chills, night sweats, excessive fatigue or weight loss. Allergic/Immunologic No reactions. Eyes Denies significant visual changes. No diplopia. No amaurosis. ENMT Denies changes in hearing, sore throat, difficulty or changes in swallowing ability, and/or sinus drainage. She states her mouth has been tender and sore but no lesions. Nystatin and Famvir relieve mouth problems. Hematologic/Lymphatic Denies easy bruising or bleeding. The patient denies any tender or palpable lymph nodes. Respiratory Denies dyspnea on exertion, chest pain, or hemoptysis. Denies orthopnea. Cardiovascular Denies anginal chest pain, palpitations or orthopnea. Gastrointestinal Denies nausea, vomiting with chemotherapy but did have diarrhea on Tuesday and thinks it was the stomach bug her family had had. Resolved currently. She denies any GI bleeding, or constipation. Denies change in bowel habits and/or stool color or early satiety. Heart burn is much better. Genitourinary (F) No hematuria, hesitancy, incontinence, vaginal bleeding, discharge or other problems with urination. Musculoskeletal Denies joint pain, swelling or redness. No decreased range of motion. Integumentary Denies chronic rashes, inflammation, ulcerations or skin changes. Neurologic Denies blurred vision, and no areas of focal weakness or numbness. Normal gait. No sensory problems. Psychiatric Denies insomnia, depression, suki or mood swings. Vital Signs: Performed on Dec 13, 2019 11:14 Height - 65.00 in Weight - 178.4 lbs (LOW) BSA - 1.88 sq.m BMI - 29.69 Temperature - 97.6 F (LOW) Pulse - 103 /min (HIGH) Respiration - 18 /min BP - 129/64 mm(hg) O2 Sat - 99 % Pain - 0,1 - No physically strenuous activity, but ambulatory and able to carry out light or sedentary work (e.g. office work, light house work). (ECOG) Physical Examination: Constitutional Alert, oriented, no acute distress. Skin pink, warm and dry. Head Normocephalic; atraumatic. Eyes Conjunctivae and sclerae are clear and without icterus. Pupils are reactive and equal. ENMT No oral exudates, ulcers, masses, thrush but does have mild mucositis. Oropharynx clear. Tongue slightly irritated but no lesions. Neck Supple without masses or thyromegaly. No jugular venous distension. Hematologic/Lymphatic No petechiae or purpura. No tender or palpable lymph nodes in the cervical or supraclavicular areas. Respiratory Lungs are clear to auscultation without rhonchi or wheezing. Cardiovascular Regular rate and rhythm of heart without murmurs,clicks, gallops or rubs. Abdomen Non-tender, non-distended, no masses, ascites. Back/Spine Non-tender to palpation. Extremities No visible deformities, no cyanosis, clubbing or edema. Musculoskeletal No tenderness or swelling, normal range of motion without obvious weakness. Integumentary No rashes or lesions. Neurologic No sensory or motor deficits, normal cerebellar function, normal gait. Psychiatric Alert and oriented times three. Coherent speech. Verbalizes understanding of our discussions today. Laboratory:Test performed on Dec 12, 2019 07:40 Sodium 136 mmol/L Potassium 3.8 mmol/L Chloride 101 mmol/L CO2 25 mmol/L Anion Gap 13.8 BUN 7 mg/dL Creatinine 0.7 mg/dL Cr Clearance (Est) 121.1900 mL/min eGFR 87.2 mL/min Glucose 113 mg/dL Calcium 10.1 mg/dL Protein, Total 7.3 g/dL Albumin 4.5 g/dL Globulin 2.8 g/dL Bilirubin, Total 0.2 mg/dL ALT (SGPT) 22 U/L AST (SGOT) 16 U/L Alkaline Phosphatase 78 IU/L WBC 4.2 10 3/uL RBC 3.03 10 6/uL HGB 10.6 g/dL HCT 32.4 % MCV 106.9 fL MCH 35.0 pg MCHC 32.7 g/dL RDW 19.1 % Platelet Count 373 10 3/cmm MPV 9.6 fL Neutrophils 2.5 10 3/uL Lymphocytes 1.1 10 3/uL Monocytes 0.4 10 3/uL Eosinophils 0.1 10 3/uL Basophils 0.0 10 3/uL Neutrophil % 59.4 % Lymphocyte % 25.9 % Monocyte % 9.1 % Eosinophil % 3.4 % Basophils % 1.0 % Impression: 1. Patient with grade 2 invasive ductal carcinoma of the right breast, stage IIB (T1c, pN2a, M0), ER/NM positive and HER-2/matias negative. 2. She underwent ultrasound directed biopsy of right breast mass and right axillary lymph node on 04/26/2019. Her Oncotype DX showed a recurrence score of 19, corresponding to a recurrence risk of 16% with hormonal therapy, assuming 1-3 positive lymph nodes. A benefit with chemotherapy was not excluded. With those findings, Dr Marin did not feel there is a definite indication for neoadjuvant chemotherapy. 3. She underwent right breast lumpectomy with axillary lymph node dissection on 07/20/2019 followed by reexcision lumpectomy with final margins negative. She has now completed her surgery. With involvement in 8/8 axillary lymph nodes she has been recommended to undergo adjuvant chemotherapy with dose dense Adriamycin/cyclophosphamide for 4 cycles followed by weekly Taxol for 12 cycles. She will be given prophylaxis Neulasta. Her baseline echocardiogram from 09/26/2019 shows adequate ejection fraction at 55% with no regional wall motion abnormalities. Port-A-Cath placement in the left subclavian vein per Dr. Dennis was obtained on 09/20/2019. Ms Melendez began her first cycle of adriamycin and Cytoxan on 09/26/2019. She has tolerated it well with expected side effects of neutropenia. Thus far she has not had febrile neutropenia and has tolerated growth factor support well. Mrs. Melendez received her last dose of mitomycin Cytoxan on November 08, 2019. She is currently undergoing treatment with weekly paclitaxel. She has tolerated it well thus far. Plan: 1. Proceed with week 4/12 paclitaxel. She completed Adriamycin Cytoxan on 11/08/2019. 2. Steroid compliance confirmed. 3. Labs from December 12, 2019 were reviewed in detail and discussed with Ms. Melendez and her . WBC 4.2, hemoglobin 10.6 platelets 373,000 ANC is 2500 creatinine 0.7 LFTs are normal. 4. She states she does not have any antibiotics at home. Will send in Zpack to have on hand in the event she develops bronchitis symptoms. 5. She does have some pre-existing neuropathy but states is no worse at this time. 6. We will plan to have her return in 1 week with CBC CMP which time she will be due for week 03/18 of paclitaxel. She was reminded to take her steroids. 7. She was reminded that we can do hydration if needed should the diarrhea return. 8. Baseline echocardiogram from 09/26/2019 reported ejection fraction of 55% with no regional wall motion abnormalities. 9. She had a screening mammography last on 03/15/2019 which recommended additional right views which led to her current diagnosis. Left breast was unremarkable at that time. She did have diagnostic imaging of the right breast including ultrasound on 04/09/2019. 10. Mrs. Melendez has been instructed to contact us in the interim should questions or problems arise. Signed By: Helen Rendon-, AOCNP Gulshan Mairn MD <<Signature on File>>
[2019-12-19 08:39] LABS: Basophils # 0.1 10^3/uL (0.0-0.1); Basophils % 1.3 %; Eosinophils # 0.2 10^3/uL (0.0-0.8); Eosinophils % 3.3 %; Hematocrit 33.2 % (37.0-47.0); Hemoglobin 10.6 g/dL (11.5-15.3); Lymphocytes # 1.3 10^3/uL (0.8-4.8); Lymphocytes % 23.1 %; Mean Corpuscular HGB Conc 31.9 g/dL (30.0-36.0); Mean Corpuscular Hemoglobin 34.5 pg (28.0-34.0); Mean Corpuscular Volume 108.1 fL (81-99); Monocytes # 0.3 10^3/uL (0.2-0.9); Monocytes % 4.6 %; Neutrophils # 3.6 10^3/uL (1.8-7.7); Nucleated Red Blood Cells % 0 %; Platelet Count 396 10^3/cmm (130-400); Red Blood Count 3.07 10^6/uL (4.1-5.3); Red Cell Distribution Width 18.3 % (12.1-15.1); White Blood Count 5.4 10^3/uL (4.0-10.0)
[2019-12-19 08:56] LABS: Alanine Aminotransferase 17 U/L (0-33); Albumin Level 4.7 g/dL (3.5-5.2); Alkaline Phosphatase 69 IU/L (35-105); Anion Gap 15.8 (5-19); Aspartate Amino Transferase 16 U/L (0-32); Blood Urea Nitrogen 9 mg/dL (6-20); Calcium 10.1 mg/dL (8.5-10.5); Carbon Dioxide 25 mmol/L (22-29); Chloride 101 mmol/L (98-107); Globulin 2.6 g/dL (1.3-4.6); Glomerular Filtration Rate 57.8 mL/min (90-130); Glucose 95 mg/dL (65-115); Potassium 3.8 mmol/L (3.5-5.1); Sodium 138 mmol/L (136-145); Total Bilirubin 0.3 mg/dL (0.15-1.2); Total Protein 7.3 g/dL (6.6-8.7)
[2019-12-20] MEDS: sodium chloride 0.9% 250 ML 300 ML IV (10:55)
[2019-12-20] MEDS: acetaminophen 325 mg Tablet 650 MG PO (15:00)
--- NOTE | 2019-12-23 20:17 | ONC FU_ITS ---
[facility] Patient Note Patient: Nola Melendez Unit #: [id number]: 1965 Dictated By: Helen RendonDate of Visit: Dec 20, 2019 Onc MED Follow-Up/Prog Note Chief Complaint: Breast cancer. History of Present Illness: Mrs Melendez is a 54-year-old woman with grade 2 invasive ductal carcinoma of the right breast, stage IIB (T1c, pN2a, M0), ER/MO positive and HER-2/matias negative. She had presented with an abnormal screening mammogram. The study, from 03/15/2019, showed a suspected spiculated mass with distortion and possible skin deformity in the deep midportion of the right breast centrally. The visualized lower x-ray lymph nodes appeared somewhat more plump or mildly enlarged as well. She had further evaluation with diagnostic mammogram and right breast ultrasound on 04/09/2019. The mammogram showed an irregular mass in the central to inferior right breast measuring approximately 2 cm. Ultrasound showed irregular hypoechoic mass within the central right breast measuring 1.5 x 2.0 x 1.6 cm. The margins were indistinct and there was posterior acoustic shadowing, highly suggestive of malignancy. The right axilla demonstrated at least 2 cortically thickened lymph nodes. She underwent ultrasound guided biopsy of the breast mass and of a right axillary lymph node on 04/26/2019. Pathology on the breast lesion showed grade 2 invasive ductal carcinoma which was ER positive at 94% and MO positive at 74%. The tumor was negative for overexpression of HER-2/matias, 1+ by IHC. The axillary lymph node was positive for metastatic ductal carcinoma with the size of the tumor measuring at least 7 mm. There was no extracapsular extension. The breast prognostic profile on the axillary lymph node showed ER positive at 95% and MO positive at 92%. HER-2/matias was equivocal by IHC (2+), but negative by FISH with amplification ratio 1.06 and 2.1 HER2 signals per cell. Dr Marin had seen her initially on 05/28/2019. At that point, he had recommended further evaluation with Oncotype DX. It showed a recurrence score of 19, corresponding to a recurrence risk of 16% with hormonal therapy, assuming 1-3 positive lymph nodes. A benefit with chemotherapy was not excluded. With those findings, it was felt there was not a definite indication for neoadjuvant chemotherapy. She then proceeded with right breast lumpectomy and right axillary lymph node dissection on 07/20/2019. Pathology showed invasive moderately differentiated mammary carcinoma with lobular differentiation. It measured 1.9 cm in greatest dimension. Focally did show high-grade features. Invasive carcinoma was present at the cranial and anterior margins. There was involvement in 8/8 axillary lymph nodes, the largest measuring 0.8 cm. Extracapsular extension was identified. She then underwent reexcision lumpectomy on 08/23/2019. There was no residual invasive carcinoma identified. Focal atypical lobular hyperplasia was present in the reexcision of the cranial margin, but the final margin was free of ALH. She has been in good general health. She has no prior medical illnesses. Prior surgeries have been limited to right salpingo-oophorectomy for removal of a benign cyst and tubal ligation. She underwent natural menopause at age 50. She does have a history of smoking 1/2 pack of cigarettes daily since age 16. Ms. Melendez was recommended to have 4 cycles of Adriamycin Cytoxan and then weekly Taxol for 12 weeks. She began her first cycle of Adriamycin Cytoxan on 09/26/2019. She also had Neulasta support. Ms Melendez is here today for follow-up. She completed 4 cycles of adriamycin and Cytoxan on November 08, 2019. She began weekly Taxol for 12 weeks on November 22, 2019. She has tolerated it well thus far. This will be her fifth week. She has had no recurrent diarrhea. She has not had cough or congestion. She denies any nausea or vomiting. She state she has been having right ear pain for 2-3 days. It has not been draining. She denies fever or sore throat. Her mouth is ribbon lap machine tender and the Nystatin does not seem to be working as well as it has been. She states her legs fall asleep occasionally but that is not new and is no worse than her normal. She denies any new concerns other that her ear pain. She has been working up to 8 hours a day 2-3 days a week the last 2 weeks. She states she is tired at the end of her shift, but she is tolerating it well otherwise. Her ECOG is 1. Past Medical History: She has had no prior medical illnesses. Past Surgical History: Right salpingo-oopherectomy - cyst removal Tubal ligation Portacatheter placement dr. dennis in 2019 Lumpectomy right breast in 2019 Ultrasound directed biopsy of right breast mass and right axillary lymph node in 2019 Allergies: Augmentin Medications: Dexamethasone (4 mg) Tablet Oral Take as Directed Ibuprofen 4 Tablet (of 200 mg) Oral PRN LORazepam 0.5 - 1 Tablet (of 1 mg) Oral t.i.d. PRN Prochlorperazine Maleate 1 Tablet (of 10 mg) Oral q 4 hours PRN Family History: Ms. Melendez's mother is alive. Ms. Melendez's father at age 75: pancreatic cancer. Ms. Melendez has 1 brother who is alive. She has 5 sisters: 5 alive. Father of pancreatic cancer at age 75. Mother is still living and in good health at age 87. One brother and 5 sisters also are in good health. 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 She is a daily smoker who has smoked 0.5 packs/day for 37 years. She has no history of drinking. She has indicated exposure to the following products: cigarettes. Ms. Melendez reports the following support systems: lives with spouse, significant other, family, or friends, lives in own house, supportive family/friends willing to assist with needs, and adequate transportation available for expected visits. Her diet consists of regular meals. She indicates her activity level as: light exercise. 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 She has history of smoking 1/2 pack of cigarettes daily since age 16. She does not drink alcohol. Review Of Symptoms: Constitutional Denies fevers, chills, night sweats, excessive fatigue or weight loss. Allergic/Immunologic No reactions. Eyes Denies significant visual changes. No diplopia. No amaurosis. ENMT Denies changes in hearing, sore throat, difficulty or changes in swallowing ability, and/or sinus drainage. She states her mouth has been tender and sore but no lesions. Nystatin and Famvir had been relieving mouth problems, but Nystatin may not be working as well now. Right ear hurting for 2-3 days. Hematologic/Lymphatic Denies easy bruising or bleeding. The patient denies any tender or palpable lymph nodes. Respiratory Denies dyspnea on exertion, chest pain, or hemoptysis. Denies orthopnea. Cardiovascular Denies anginal chest pain, palpitations or orthopnea. Gastrointestinal Denies nausea, vomiting with chemotherapy. Denies recurrent diarrhea. She denies any GI bleeding, or constipation. Denies change in bowel habits and/or stool color or early satiety. Heart burn is much better. Genitourinary (F) No hematuria, hesitancy, incontinence, vaginal bleeding, discharge or other problems with urination. Musculoskeletal Denies joint pain, swelling or redness. No decreased range of motion. Integumentary Denies chronic rashes, inflammation, ulcerations or skin changes. Neurologic Denies blurred vision, and no areas of focal weakness or numbness. Normal gait. No sensory problems. Psychiatric Denies insomnia, depression, suki or mood swings. Vital Signs: Performed on Dec 20, 2019 10:10 Height - 65.00 in Weight - 175.6 lbs (LOW) BSA - 1.87 sq.m BMI - 29.22 Temperature - 98.2 F (LOW) Pulse - 114 /min (HIGH) Respiration - 16 /min BP - 129/72 mm(hg) O2 Sat - 99 % Pain - 0 Fatigue - 8,1 - No physically strenuous activity, but ambulatory and able to carry out light or sedentary work (e.g. office work, light house work). (ECOG) Physical Examination: Constitutional Alert, oriented, no acute distress. Skin pink, warm and dry. Head Normocephalic; atraumatic. Eyes Conjunctivae and sclerae are clear and without icterus. Pupils are reactive and equal. ENMT No oral exudates, ulcers, masses, thrush but does have mild mucositis. Oropharynx clear. Tongue slightly irritated but no lesions. Neck Supple without masses or thyromegaly. No jugular venous distension. Hematologic/Lymphatic No petechiae or purpura. No tender or palpable lymph nodes in the cervical or supraclavicular areas. Respiratory Lungs are clear to auscultation without rhonchi or wheezing. Cardiovascular Regular rate and rhythm of heart without murmurs,clicks, gallops or rubs. Abdomen Non-tender, non-distended, no masses, ascites. Back/Spine Non-tender to palpation. Extremities No visible deformities, no cyanosis, clubbing or edema. Musculoskeletal No tenderness or swelling, normal range of motion without obvious weakness. Integumentary No rashes or lesions. Neurologic No sensory or motor deficits, normal cerebellar function, normal gait. Psychiatric Alert and oriented times three. Coherent speech. Verbalizes understanding of our discussions today. Laboratory:Test performed on Dec 19, 2019 08:10 Sodium 138 mmol/L Potassium 3.8 mmol/L Chloride 101 mmol/L CO2 25 mmol/L Anion Gap 15.8 BUN 9 mg/dL Creatinine 1.0 mg/dL Cr Clearance (Est) 84.8300 mL/min eGFR 57.8 mL/min Glucose 95 mg/dL Calcium 10.1 mg/dL Protein, Total 7.3 g/dL Albumin 4.7 g/dL Globulin 2.6 g/dL Bilirubin, Total 0.3 mg/dL ALT (SGPT) 17 U/L AST (SGOT) 16 U/L Alkaline Phosphatase 69 IU/L WBC 5.4 10 3/uL RBC 3.07 10 6/uL HGB 10.6 g/dL HCT 33.2 % MCV 108.1 fL MCH 34.5 pg MCHC 31.9 g/dL RDW 18.3 % Platelet Count 396 10 3/cmm MPV 10.0 fL Neutrophils 3.6 10 3/uL Lymphocytes 1.3 10 3/uL Monocytes 0.3 10 3/uL Eosinophils 0.2 10 3/uL Basophils 0.1 10 3/uL Neutrophil % 67.0 % Lymphocyte % 23.1 % Monocyte % 4.6 % Eosinophil % 3.3 % Basophils % 1.3 % Test performed on Nov 21, 2019 09:47 Manual Lymphocytes 25.2 % Manual Monocytes 7.8 % Manual Eosinophils 0.0 % Manual Basophils 0.6 % NRBCs 0.0 /100 WBC Test performed on Oct 18, 2019 11:55 CBC Slide Review SLIDE REVIEW PERFORM SLIDE REVIEW AGREES WITH AUTOMATED RESULTS Test performed on Oct 10, 2019 07:32 Manual Segs % 41 % Manual Bands % 13.0 % Atypical Lymphs % 1.0 % Metamyelocytes % 5.0 % Myelocytes % 1.0 % Polychromasia TRACE Poikilocytosis 1+ Stomatocytes 1+ Platelet Estimate NORMAL Manual Neutrophils Abs 5.6 10 3/cmm Manual Lymphocytes Abs 2.4 10 3/cmm Manual Monocytes Abs 1.5 10 3/cmm Manual Eosinophils Abs 0.1 10 3/cmm Manual Basophils Abs 0.1 10 3/cmm Impression: 1. Patient with grade 2 invasive ductal carcinoma of the right breast, stage IIB (T1c, pN2a, M0), ER/MO positive and HER-2/matias negative. 2. She underwent ultrasound directed biopsy of right breast mass and right axillary lymph node on 04/26/2019. Her Oncotype DX showed a recurrence score of 19, corresponding to a recurrence risk of 16% with hormonal therapy, assuming 1-3 positive lymph nodes. A benefit with chemotherapy was not excluded. With those findings, Dr Marin did not feel there is a definite indication for neoadjuvant chemotherapy. 3. She underwent right breast lumpectomy with axillary lymph node dissection on 07/20/2019 followed by reexcision lumpectomy with final margins negative. She has now completed her surgery. With involvement in 8/8 axillary lymph nodes she has been recommended to undergo adjuvant chemotherapy with dose dense Adriamycin/cyclophosphamide for 4 cycles followed by weekly Taxol for 12 cycles. She will be given prophylaxis Neulasta. Her baseline echocardiogram from 09/26/2019 shows adequate ejection fraction at 55% with no regional wall motion abnormalities. Port-A-Cath placement in the left subclavian vein per Dr. Dennis was obtained on 09/20/2019. Ms Melendez began her first cycle of adriamycin and Cytoxan on 09/26/2019. She has tolerated it well with expected side effects of neutropenia. Thus far she has not had febrile neutropenia and has tolerated growth factor support well. Mrs. Melendez received her last dose of mitomycin Cytoxan on November 08, 2019. She is currently undergoing treatment with weekly paclitaxel. She has tolerated it well thus far. Plan: 1. Proceed with week 5/12 paclitaxel. She completed Adriamycin Cytoxan on 11/08/2019. 2. Steroid compliance confirmed. 3. Labs from December 18, 2019 were reviewed in detail and discussed with Ms. Melendez and her . WBC 5.4, hemoglobin 10.6 platelets 396,000 ANC is 3600 creatinine 1.0 LFTs are normal. 4. Will send in ear drops for rod media externis. Also will send in Diflucan 100 mgg po daily to see if will help mouth. 5. She does have some pre-existing neuropathy but states is no worse at this time. 6. We will plan to have her return in 1 week with CBC CMP which time she will be due for week 04/18 of paclitaxel. She was reminded to take her steroids. 7. She was reminded that we can do hydration if needed should the diarrhea return. 8. Baseline echocardiogram from 09/26/2019 reported ejection fraction of 55% with no regional wall motion abnormalities. 9. She had a screening mammography last on 03/15/2019 which recommended additional right views which led to her current diagnosis. Left breast was unremarkable at that time. She did have diagnostic imaging of the right breast including ultrasound on 04/09/2019. 10. Ms. Melendez has been instructed to contact us in the interim should questions or problems arise. Signed By: Helen Rendon-, AOCNP Gulshan Marin MD <<Signature on File>>
[2019-12-26 11:07] LABS: Basophils % 1.1 %; Eosinophils # 0.1 10^3/uL (0.0-0.8); Eosinophils % 2.2 %; Hematocrit 32.4 % (37.0-47.0); Hemoglobin 10.5 g/dL (11.5-15.3); Lymphocytes # 0.8 10^3/uL (0.8-4.8); Lymphocytes % 20.9 %; Mean Corpuscular HGB Conc 32.4 g/dL (30.0-36.0); Mean Corpuscular Hemoglobin 35.5 pg (28.0-34.0); Mean Corpuscular Volume 109.5 fL (81-99); Mean Platelet Volume 9.8 fL (7.4-10.4); Monocytes # 0.2 10^3/uL (0.2-0.9); Monocytes % 5.5 %; Neutrophils # 2.5 10^3/uL (1.8-7.7); Neutrophils % 69.8 %; Nucleated Red Blood Cells % 0 %; Platelet Count 333 10^3/cmm (130-400); Red Blood Count 2.96 10^6/uL (4.1-5.3); Red Cell Distribution Width 17.2 % (12.1-15.1); White Blood Count 3.6 10^3/uL (4.0-10.0)
[2019-12-26 11:18] LABS: Alanine Aminotransferase 18 U/L (0-33); Albumin Level 4.5 g/dL (3.5-5.2); Alkaline Phosphatase 73 IU/L (35-105); Anion Gap 12.9 (5-19); Aspartate Amino Transferase 15 U/L (0-32); Blood Urea Nitrogen 8 mg/dL (6-20); Calcium 9.9 mg/dL (8.5-10.5); Carbon Dioxide 27 mmol/L (22-29); Chloride 100 mmol/L (98-107); Globulin 2.6 g/dL (1.3-4.6); Glomerular Filtration Rate 87.2 mL/min (90-130); Glucose 102 mg/dL (65-115); Potassium 3.9 mmol/L (3.5-5.1); Sodium 136 mmol/L (136-145); Total Bilirubin 0.2 mg/dL (0.15-1.2); Total Protein 7.1 g/dL (6.6-8.7)
[2019-12-26 19:00] LABS: Vitamin B12 323 pg/mL (232-1245)
--- NOTE | 2019-12-31 09:34 | ONC FU_ITS ---
[facility] Patient Note Patient: Nola Melendez Unit #: [id number]: 1965 Dictated By: Helen RendonDate of Visit: Dec 27, 2019 Onc MED Follow-Up/Prog Note Chief Complaint: Breast cancer. History of Present Illness: Mrs Melendez is a 54-year-old woman with grade 2 invasive ductal carcinoma of the right breast, stage IIB (T1c, pN2a, M0), ER/MA positive and HER-2/matias negative. She had presented with an abnormal screening mammogram. The study, from 03/15/2019, showed a suspected spiculated mass with distortion and possible skin deformity in the deep midportion of the right breast centrally. The visualized lower x-ray lymph nodes appeared somewhat more plump or mildly enlarged as well. She had further evaluation with diagnostic mammogram and right breast ultrasound on 04/09/2019. The mammogram showed an irregular mass in the central to inferior right breast measuring approximately 2 cm. Ultrasound showed irregular hypoechoic mass within the central right breast measuring 1.5 x 2.0 x 1.6 cm. The margins were indistinct and there was posterior acoustic shadowing, highly suggestive of malignancy. The right axilla demonstrated at least 2 cortically thickened lymph nodes. She underwent ultrasound guided biopsy of the breast mass and of a right axillary lymph node on 04/26/2019. Pathology on the breast lesion showed grade 2 invasive ductal carcinoma which was ER positive at 94% and MA positive at 74%. The tumor was negative for overexpression of HER-2/matias, 1+ by IHC. The axillary lymph node was positive for metastatic ductal carcinoma with the size of the tumor measuring at least 7 mm. There was no extracapsular extension. The breast prognostic profile on the axillary lymph node showed ER positive at 95% and MA positive at 92%. HER-2/matias was equivocal by IHC (2+), but negative by FISH with amplification ratio 1.06 and 2.1 HER2 signals per cell. Dr Marin had seen her initially on 05/28/2019. At that point, he had recommended further evaluation with Oncotype DX. It showed a recurrence score of 19, corresponding to a recurrence risk of 16% with hormonal therapy, assuming 1-3 positive lymph nodes. A benefit with chemotherapy was not excluded. With those findings, it was felt there was not a definite indication for neoadjuvant chemotherapy. She then proceeded with right breast lumpectomy and right axillary lymph node dissection on 07/20/2019. Pathology showed invasive moderately differentiated mammary carcinoma with lobular differentiation. It measured 1.9 cm in greatest dimension. Focally did show high-grade features. Invasive carcinoma was present at the cranial and anterior margins. There was involvement in 8/8 axillary lymph nodes, the largest measuring 0.8 cm. Extracapsular extension was identified. She then underwent reexcision lumpectomy on 08/23/2019. There was no residual invasive carcinoma identified. Focal atypical lobular hyperplasia was present in the reexcision of the cranial margin, but the final margin was free of ALH. She has been in good general health. She has no prior medical illnesses. Prior surgeries have been limited to right salpingo-oophorectomy for removal of a benign cyst and tubal ligation. She underwent natural menopause at age 50. She does have a history of smoking 1/2 pack of cigarettes daily since age 16. Ms. Melendez was recommended to have 4 cycles of Adriamycin Cytoxan and then weekly Taxol for 12 weeks. She began her first cycle of Adriamycin Cytoxan on 09/26/2019. She also had Neulasta support. Ms Melendez is here today for follow-up. She completed 4 cycles of adriamycin and Cytoxan on November 08, 2019. She began weekly Taxol for 12 weeks on November 22, 2019. She has tolerated it well thus far. This will be her 6th week. She has had no recurrent diarrhea. She denies cough or congestion. She denies any nausea or vomiting. She is having significant neuropathy in that she states she has dropped things a couple times because she cannot feel them in her fingertips. She is had some neuropathy in her feet as well and states occasionally when she is walking down the [place] the [facility] she will have to hang onto the rail because her legs will does feel weak and she cannot feel my feet for a few seconds . She states that is not getting better and seems to be getting just a hair bit worse with the treatment. She denies any new pain otherwise. She denies any fever or chills. She denies any bladder changes. She states her appetite is good. She is trying to work some and tolerates this well but feels washed out at the end of the day . She recovers well with rest. Her ECOG is 1. Past Medical History: She has had no prior medical illnesses. Past Surgical History: Right salpingo-oopherectomy - cyst removal Tubal ligation Portacatheter placement dr. dennis in 2019 Lumpectomy right breast in 2019 Ultrasound directed biopsy of right breast mass and right axillary lymph node in 2019 Allergies: Augmentin Medications: Dexamethasone (4 mg) Tablet Oral Take as Directed Ibuprofen 4 Tablet (of 200 mg) Oral PRN LORazepam 0.5 - 1 Tablet (of 1 mg) Oral t.i.d. PRN Prochlorperazine Maleate 1 Tablet (of 10 mg) Oral q 4 hours PRN Family History: Ms. Melendez's mother is alive. Ms. Melendez's father at age 75: pancreatic cancer. Ms. Melendez has 1 brother who is alive. She has 5 sisters: 5 alive. Father of pancreatic cancer at age 75. Mother is still living and in good health at age 87. One brother and 5 sisters also are in good health. 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 She is a daily smoker who has smoked 0.5 packs/day for 37 years. She has no history of drinking. She has indicated exposure to the following products: cigarettes. Ms. Melendez reports the following support systems: lives with spouse, significant other, family, or friends, lives in own house, supportive family/friends willing to assist with needs, and adequate transportation available for expected visits. Her diet consists of regular meals. She indicates her activity level as: light exercise. 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 She has history of smoking 1/2 pack of cigarettes daily since age 16. She does not drink alcohol. Review Of Symptoms: Constitutional Denies fevers, chills, night sweats, excessive fatigue or weight loss. Allergic/Immunologic No reactions. Eyes Denies significant visual changes. No diplopia. No amaurosis. ENMT Denies changes in hearing, sore throat, difficulty or changes in swallowing ability, and/or sinus drainage. She states her mouth improved. Hematologic/Lymphatic Denies easy bruising or bleeding. The patient denies any tender or palpable lymph nodes. Respiratory Denies dyspnea on exertion, chest pain, or hemoptysis. Denies orthopnea. Cardiovascular Denies anginal chest pain, palpitations or orthopnea. Gastrointestinal Denies nausea, vomiting with chemotherapy. Denies recurrent diarrhea. She denies any GI bleeding, or constipation. Denies change in bowel habits and/or stool color or early satiety. Heart burn is much better. Genitourinary (F) No hematuria, hesitancy, incontinence, vaginal bleeding, discharge or other problems with urination. Musculoskeletal Denies joint pain, swelling or redness. No decreased range of motion. Integumentary Denies chronic rashes, inflammation, ulcerations or skin changes. Neurologic worsening numbness and tingling in fingers and toes. She has dropped several items because I can't feel them . Psychiatric Denies insomnia, depression, suki or mood swings. Vital Signs: Performed on Dec 27, 2019 11:04 Height - 65.00 in Weight - 175.8 lbs (HIGH) BSA - 1.87 sq.m BMI - 29.25 Temperature - 98.1 F (LOW) Pulse - 106 /min (HIGH) Respiration - 12 /min BP - 124/69 mm(hg) O2 Sat - 99 % Pain - 0 Fatigue - 0,1 - No physically strenuous activity, but ambulatory and able to carry out light or sedentary work (e.g. office work, light house work). (ECOG) Physical Examination: Constitutional Alert, oriented, no acute distress. Skin pink, warm and dry. Head Normocephalic; atraumatic. Eyes Conjunctivae and sclerae are clear and without icterus. Pupils are reactive and equal. ENMT No oral exudates, ulcers, masses, thrush or mucositis. Oropharynx clear. Tongue normal. Neck Supple without masses or thyromegaly. No jugular venous distension. Hematologic/Lymphatic No petechiae or purpura. No tender or palpable lymph nodes in the cervical or supraclavicular areas. Respiratory Lungs are clear to auscultation without rhonchi or wheezing. Cardiovascular Regular rate and rhythm of heart without murmurs,clicks, gallops or rubs. Abdomen Non-tender, non-distended, no masses, ascites. Back/Spine Non-tender to palpation. Extremities No visible deformities, no cyanosis, clubbing or edema. Musculoskeletal No tenderness or swelling, normal range of motion without obvious weakness. Integumentary No rashes or lesions. Neurologic No sensory or motor deficits, normal cerebellar function, normal gait. Psychiatric Alert and oriented times three. Coherent speech. Verbalizes understanding of our discussions today. Laboratory:Test performed on Dec 26, 2019 10:33 Sodium 136 mmol/L Potassium 3.9 mmol/L Chloride 100 mmol/L CO2 27 mmol/L Anion Gap 12.9 BUN 8 mg/dL Creatinine 0.7 mg/dL Cr Clearance (Est) 121.1900 mL/min eGFR 87.2 mL/min Glucose 102 mg/dL Calcium 9.9 mg/dL Protein, Total 7.1 g/dL Albumin 4.5 g/dL Globulin 2.6 g/dL Bilirubin, Total 0.2 mg/dL ALT (SGPT) 18 U/L AST (SGOT) 15 U/L Alkaline Phosphatase 73 IU/L WBC 3.6 10 3/uL RBC 2.96 10 6/uL HGB 10.5 g/dL HCT 32.4 % MCV 109.5 fL MCH 35.5 pg MCHC 32.4 g/dL RDW 17.2 % Platelet Count 333 10 3/cmm MPV 9.8 fL Neutrophils 2.5 10 3/uL Lymphocytes 0.8 10 3/uL Monocytes 0.2 10 3/uL Eosinophils 0.1 10 3/uL Basophils 0.0 10 3/uL Neutrophil % 69.8 % Lymphocyte % 20.9 % Monocyte % 5.5 % Eosinophil % 2.2 % Basophils % 1.1 % Test performed on Nov 21, 2019 09:47 Manual Lymphocytes 25.2 % Manual Monocytes 7.8 % Manual Eosinophils 0.0 % Manual Basophils 0.6 % NRBCs 0.0 /100 WBC Test performed on Oct 18, 2019 11:55 CBC Slide Review SLIDE REVIEW PERFORM SLIDE REVIEW AGREES WITH AUTOMATED RESULTS Test performed on Oct 10, 2019 07:32 Manual Segs % 41 % Manual Bands % 13.0 % Atypical Lymphs % 1.0 % Metamyelocytes % 5.0 % Myelocytes % 1.0 % Polychromasia TRACE Poikilocytosis 1+ Stomatocytes 1+ Platelet Estimate NORMAL Manual Neutrophils Abs 5.6 10 3/cmm Manual Lymphocytes Abs 2.4 10 3/cmm Manual Monocytes Abs 1.5 10 3/cmm Manual Eosinophils Abs 0.1 10 3/cmm Manual Basophils Abs 0.1 10 3/cmm Impression: 1. Patient with grade 2 invasive ductal carcinoma of the right breast, stage IIB (T1c, pN2a, M0), ER/MA positive and HER-2/matias negative. 2. She underwent ultrasound directed biopsy of right breast mass and right axillary lymph node on 04/26/2019. Her Oncotype DX showed a recurrence score of 19, corresponding to a recurrence risk of 16% with hormonal therapy, assuming 1-3 positive lymph nodes. A benefit with chemotherapy was not excluded. With those findings, Dr Marin did not feel there is a definite indication for neoadjuvant chemotherapy. 3. She underwent right breast lumpectomy with axillary lymph node dissection on 07/20/2019 followed by reexcision lumpectomy with final margins negative. She has now completed her surgery. With involvement in 8/8 axillary lymph nodes she has been recommended to undergo adjuvant chemotherapy with dose dense Adriamycin/cyclophosphamide for 4 cycles followed by weekly Taxol for 12 cycles. She will be given prophylaxis Neulasta. Her baseline echocardiogram from 09/26/2019 shows adequate ejection fraction at 55% with no regional wall motion abnormalities. Port-A-Cath placement in the left subclavian vein per Dr. Dennis was obtained on 09/20/2019. Ms Melendez began her first cycle of adriamycin and Cytoxan on 09/26/2019. She has tolerated it well with expected side effects of neutropenia. Thus far she has not had febrile neutropenia and has tolerated growth factor support well. Mrs. Melendez received her last dose of mitomycin Cytoxan on November 08, 2019. She is currently undergoing treatment with weekly paclitaxel. She has tolerated it well thus far. She is now experiencing significnat, persistent neuropathy symptoms in her fingers/hands and feet/toes. The neuropathy has impacted her ability to do her ADL's at times. Plan: 1. Hold week 12 paclitaxel due to significant neuropathy symptoms. She completed Adriamycin Cytoxan on 11/08/2019. We will attempt to obtain Abraxane for her to see if we can complete with Abraxane. However if she has any recurrent neuropathy or is not improved after this week we may consider stopping her treatment. 2. Steroid compliance confirmed. 3. Labs from December 26, 2019 were reviewed in detail and discussed with Ms. Melendez and her . WBC 3.6, hemoglobin 10.5 platelets 333,000 ANC is 2500 creatinine 0.7 LFTs are normal. 4. We will plan to have her return in 1 week with CBC CMP which time she will be due for week 6/12 of paclitaxel. She was advised she can stop her steroids as we will not be using paclitaxel. 5. Baseline echocardiogram from 09/26/2019 reported ejection fraction of 55% with no regional wall motion abnormalities. 6. She had a screening mammography last on 03/15/2019 which recommended additional right views which led to her current diagnosis. Left breast was unremarkable at that time. 7. She did have diagnostic imaging of the right breast including ultrasound on 04/09/2019. 8. Ms. Melendez has been instructed to contact us in the interim should questions or problems arise. Signed By: Helen Rendon-, CNP Gulshan Marin MD <<Signature on File>>
[2020-01-02 09:41] LABS: Basophils # 0.1 10^3/uL (0.0-0.1); Basophils % 1.1 %; Eosinophils # 0.2 10^3/uL (0.0-0.8); Hematocrit 37.1 % (37.0-47.0); Hemoglobin 11.5 g/dL (11.5-15.3); Lymphocytes # 1.4 10^3/uL (0.8-4.8); Lymphocytes % 22.7 %; Mean Corpuscular Hemoglobin 35.1 pg (28.0-34.0); Mean Corpuscular Volume 113.1 fL (81-99); Mean Platelet Volume 9.8 fL (7.4-10.4); Monocytes # 1.1 10^3/uL (0.2-0.9); Monocytes % 16.6 %; Neutrophils # 3.5 10^3/uL (1.8-7.7); Neutrophils % 55.8 %; Nucleated Red Blood Cells % 0 %; Platelet Count 379 10^3/cmm (130-400); Red Blood Count 3.28 10^6/uL (4.1-5.3); White Blood Count 6.3 10^3/uL (4.0-10.0)
[2020-01-02 09:55] LABS: Alanine Aminotransferase 18 U/L (0-33); Albumin Level 3.9 g/dL (3.5-5.2); Alkaline Phosphatase 77 IU/L (35-105); Aspartate Amino Transferase 12 U/L (0-32); Blood Urea Nitrogen 8 mg/dL (6-20); Calcium 9.7 mg/dL (8.5-10.5); Carbon Dioxide 25 mmol/L (22-29); Chloride 101 mmol/L (98-107); Globulin 3.2 g/dL (1.3-4.6); Glomerular Filtration Rate 87.2 mL/min (90-130); Glucose 90 mg/dL (65-115); Sodium 136 mmol/L (136-145); Total Bilirubin 0.2 mg/dL (0.15-1.2); Total Protein 7.1 g/dL (6.6-8.7)
--- NOTE | 2020-01-03 20:07 | ONC FU_ITS ---
Dr. Marin Patient Follow-Up Note Patient: Nola Melendez < Unit #: [id number]: 1965 Dicatated By: Gulshan Marin M.D.Date of Visit:Jan 03, 2020 Onc Med Follow-up/Prog Note Chief Complaint: Breast cancer. History of Present Illness: This is a 54 year-old woman with grade 2 invasive ductal carcinoma of the right breast, stage IIB (T1c, pN2a, M0), ER/CT positive and HER-2/matias negative. She had presented with an abnormal screening mammogram. The study, from 03/15/2019, showed a suspected spiculated mass with distortion and possible skin deformity in the deep midportion of the right breast centrally. The visualized lower x-ray lymph nodes appeared somewhat more plump or mildly enlarged as well. She had further evaluation with diagnostic mammogram and right breast ultrasound on 04/09/2019. The mammogram showed an irregular mass in the central to inferior right breast measuring approximately 2 cm. Ultrasound showed irregular hypoechoic mass within the central right breast measuring 1.5 x 2.0 x 1.6 cm. The margins were indistinct and there was posterior acoustic shadowing, highly suggestive of malignancy. The right axilla demonstrated at least 2 cortically thickened lymph nodes. She underwent ultrasound guided biopsy of the breast mass and of a right axillary lymph node on 04/26/2019. Pathology on the breast lesion showed grade 2 invasive ductal carcinoma which was ER positive at 94% and CT positive at 74%. The tumor was negative for overexpression of HER-2/matias, 1+ by IHC. The axillary lymph node was positive for metastatic ductal carcinoma with the size of the tumor measuring at least 7 mm. There was no extracapsular extension. The breast prognostic profile on the axillary lymph node showed ER positive at 95% and CT positive at 92%. HER-2/matias was equivocal by IHC (2+), but negative by FISH with amplification ratio 1.06 and 2.1 HER2 signals per cell. I had seen her initially on 05/28/2019. At that point I had recommended further evaluation with Oncotype DX. It showed a recurrence score of 19, corresponding to a recurrence risk of 16% with hormonal therapy, assuming 1-3 positive lymph nodes. A benefit with chemotherapy was not excluded. With those findings, I did not feel there is a definite indication for neoadjuvant chemotherapy. She then proceeded with right breast lumpectomy and right axillary lymph node dissection on 07/20/2019. Pathology showed invasive moderately differentiated mammary carcinoma with lobular differentiation. It measured 1.9 cm in greatest dimension. Focally did show high-grade features. Invasive carcinoma was present at the cranial and anterior margins. There was involvement in 8/8 axillary lymph nodes, the largest measuring 0.8 cm. Extracapsular extension was identified. She then underwent reexcision lumpectomy on 08/23/2019. There was no residual invasive carcinoma identified. Focal atypical lobular hyperplasia was present in the reexcision of the cranial margin, but the final margin was free of ALH. She has been in good general health. She has no prior medical illnesses. Prior surgeries have been limited to right salpingo-oophorectomy for removal of a benign cyst and tubal ligation. She underwent natural menopause at age 50. She does have a history of smoking 1/2 pack of cigarettes daily since age 16. INTERIM HISTORY: She began cycle 1 of Adriamycin/cyclophosphamide on 09/26/2019. She had significant fatigue following the chemotherapy, but she was able to tolerate it with acceptable toxicity. She then continued with cycle 2 on 10/11/2019, with cycle 3 on 10/25/2019, and with cycle 4 on 11/08/2019. On 11/22/2019 she began her 1st of 12 planned weekly cycles of paclitaxel. As of 12/20/2019 she had completed her 5th weekly infusion of paclitaxel. At her follow-up on 12/27/2019 her treatment was put on hold due to worsening neuropathy. She is seen for a followup visit. She has been feeling pretty good generally. She says her energy is good and she works every day. She has normal activity. ECOG score is 0. Her appetite comes and goes. She has not had fever. She does have some hot flashes/sweating. She has a little bit of cough. She does not complain of shortness of breath or chest pain. She has been having some acid reflux, which also comes and goes. She has no other GI complaints. She complains that her bladder is overactive. She has no significant joint or bone pain. She does not complain of headache. She has occasional dizziness. She continues to have significant neuropathy in her fingers, to the point that she has sometimes dropping objects. She also has some numbness/tingling in her feet, but it is more intermittent. Medications: Dexamethasone (4 mg) Tablet Oral Take as Directed, Ibuprofen 4 Tablet (of 200 mg) Oral PRN, LORazepam 0.5 - 1 Tablet (of 1 mg) Oral t.i.d. PRN, Prochlorperazine Maleate 1 Tablet (of 10 mg) Oral q 4 hours PRN Allergies: Augmentin Review of Systems: Constitutional - Her energy is good. 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 Her appetite comes and goes weight is stable. No fever or chills. She has hot flashes and sweating. ECOG score is 0, ENMT - No sinus congestion/drainage. No mouth sores. No sore throat or difficulty swallowing, Hematologic/Lymphatic - No abnormal bruising or bleeding, Respiratory - No shortness of breath. She has a slight cough. No pleuritic pain or hemoptysis, Cardiovascular - No angina pain. No palpitations, Gastrointestinal - No nausea or vomiting. She has daily episodes of acid reflux. No diarrhea or constipation. No blood in the stool or black stools, Genitourinary (F) - No dysuria or hematuria. She has urinary frequency, both during the day and at night. No urgency or incontinence, Musculoskeletal - No joint or bone pain, Integumentary - No skin complications, Neurologic - No headache. She has occasional dizziness. She has numbness and tingling in her fingers, Psychiatric - No anxiety or depression. No insomnia. Vital Signs: Performed on Jan 03, 2020 09:40 Height - 65.00 in Weight - 178.6 lbs (HIGH) BSA - 1.89 sq.m BMI - 29.72 Temperature - 97.4 F (LOW) Pulse - 102 /min (HIGH) Respiration - 18 /min BP - 120/76 mm(hg) O2 Sat - 99 % Pain - 0 Physical Examination: Constitutional - She looks pretty good generally, Eyes - Sclerae nonicteric. Conjunctivae clear, ENMT - No lesions noted in the oral cavity, Hematologic/Lymphatic - No cervical, clavicular, or axillary adenopathy, Respiratory - Lungs are clear with some decrease in air movement bilaterally, Cardiovascular - Heart rhythm is regular. There is no murmur, gallop, or rub noted, Abdomen - Soft. Liver and spleen are not enlarged. There is no abdominal mass or ascites noted and there is no inguinal adenopathy, Extremities - No edema. There is nail discoloration from the chemotherapy, Neurologic - No focal neurologic deficits noted. Lab/Imaging: CBC shows hemoglobin 11.5 g, white blood cell count 6300, and platelet count 379,000. Comprehensive metabolic profile is unremarkable. Impression: 1. Patient with grade 2 invasive ductal carcinoma of the right breast, stage IIB (T1c, pN2a, M0), ER/CT positive and HER-2/matias negative. 2. She underwent ultrasound directed biopsy of right breast mass and right axillary lymph node on 04/26/2019. Her Oncotype DX showed a recurrence score of 19, corresponding to a recurrence risk of 16% with hormonal therapy, assuming 1-3 positive lymph nodes. A benefit with chemotherapy was not excluded. With those findings, I did not feel there was a definite indication for neoadjuvant chemotherapy. 3. She underwent right breast lumpectomy with axillary lymph node dissection on 07/20/2019 followed by reexcision lumpectomy with final margins negative. She is undergoing adjuvant chemotherapy with dose dense Adriamycin/cyclophosphamide followed by weekly Taxol. She completed 4 cycles of Adriamycin/cyclophosphamide from 09/26/2019 thru 11/08/2019. She had significant fatigue with it, but she otherwise tolerated it well. She then began her 1st of 12 planned weekly cycles of paclitaxel on 11/22/2019. As of 12/20/2019 she had completed her 5th weekly infusion of paclitaxel. As of last week her treatment was put on hold due to worsening neuropathy. Those symptoms have persisted and they are significant enough in her hands that she has been dropping objects. Plan: Given the severity of the neuropathy, I am going to stop her chemotherapy now. She will be referred to Dr. Rendon for radiation. She will be scheduled for a follow-up visit in 1 month to further discuss adjuvant hormonal therapy. As she is postmenopausal, the recommended treatment will be an aromatase inhibitor, and she will need a baseline bone density study. She will be given a prescription for omeprazole for her GERD symptoms. Signed By: Gulshan Marin M.D. <<Signature on File>>
== END 2020-01-05 23:59 | disposition home or self-care (01) ==
LOC: ONCMED 05:46
PROVIDERS: Nurse Practitioner; Absent Provider Internal Medicine Medical Oncology; Family Provider Family Medicine; Visit Provider Internal Medicine Medical Oncology
DX: Z51.11 Encounter for antineoplastic chemotherapy (principal); C50.111 Malignant neoplasm of central portion of right female breast; C77.3 Secondary and unspecified malignant neoplasm of axilla and upper limb lymph nodes; G62.0 Drug-induced polyneuropathy; T45.1X5A Adverse effect of antineoplastic and immunosuppressive drugs, initial encounter; K21.9 Gastro-esophageal reflux disease without esophagitis; F17.210 Nicotine dependence, cigarettes, uncomplicated; Z17.0 Estrogen receptor positive status [ER+]; Z78.0 Asymptomatic menopausal state; Z79.899 Other long term (current) drug therapy
CPT/HCPCS: 36415; 80053; 82607; 85025; 96367; 96375; 96413; 99214; J1100; J1200; J1453; J2405; J3490; J7050; J9267

== ENCOUNTER 2020-01-16 16:10 | Outpatient (RCR) | payer BC, SELFPAY | END 2020-02-05 23:59 | disposition home or self-care (01) | LOC: SPT 16:10 | PROVIDERS: Family Provider Family Medicine; PCP Family Medicine; Referring Provider Radiology Radiation Oncology; Visit Provider Radiology Radiation Oncology | DX: C50.111 Malignant neoplasm of central portion of right female breast (principal) | CPT/HCPCS: 97161 ==

== ENCOUNTER 2020-02-05 06:49 | Outpatient (RCR) | payer BC, SELFPAY ==
--- NOTE | 2020-01-14 20:49 | N.ONRAD NP_ITS ---
Radiation Oncology New Patient Visit Patient: Nola Melendez MR#: [id number] : 1965> Age: 54> Sex: Female> Dictated by: Dr. Dae Rendon Date of Service: 01/10/2020 Referring Physician(s) : Dr. Ash Jones Primary Diagnosis: Z17.0 - estrogen receptor positive status [er+], Diagnosed 09/26/2019 (active) and C50.111 - malignant neoplasm of central portion of right female breast, Diagnosed 09/26/2019 (active), stage ib, t1c, pn2a, m0, g2, her2 neg, er pos, pr. Previous Treatment: right breast lumpectomy with right axillary lymph node dissection ( adjuvant chemotherapy Chief complaint: Right breast cancer History of Present Illness: This is a 54 y/o female who had an abnormal mammogram, which showed a spiculated mass with distortion and the possible skin deformity in the deep midportion of the right breast at the 3 o'clock position. Ultrasound on April 09, 2019 revealed a 15 x 20 x 16 mm irregular hypoechoic mass within the central right breast and at least 2 cortically thickened lymph nodes in the right axilla. She underwent a biopsy of the right breast mass and also right axillary lymph node on May 04, 2019. Pathology showed the breast mass to be infiltrating ductal carcinoma, grade 2, ER+, CT+, Her 2-. The right axillary lymph node was positive for metastatic carcinoma. She denies any symptoms associated with the diagnosis. Specifically, she denies feeling a nodule/mass, skin changes, and nipple retraction/discharge. The patient underwent right breast lumpectomy with right axillary lymph node dissection on 07/20/2019. Tumor is 19 mm in size. No lymphovascular invasion was identified. Surgical margins were positive but she underwent re-excision and achieved final negative surgical margins. 8/8 axillary lymph nodes were involved with metastatic carcinoma with extracapsular extension identified. She has recovered well from the surgery with no complications. Subsequently she underwent adjuvant chemotherapy with AC and paclitaxel. She completed 5 of 12 planned weekly paclitaxel and her treatment was put on hold due to worsening neuropathy. She comes in today to discuss about adjuvant radiation therapy. Current Medications: Acetaminophen, benadryl, benzonatate, dexamethasone, dexamethasone, dexamethasone Sodium Phosphate, emend, famotidine, famvir, fluconazole, ibuprofen, levoFLOXacin, lidocaine-Prilocaine, lORazepam, rhcjzeei-Vuumhxihi-FD, nystatin, omeprazole, pACLitaxel, prochlorperazine Maleate, prochlorperazine Maleate, sulfamethoxazole-Trimethoprim, zithromax Z-Sha, zofran. Allergies: Augmentin. Medical History: No history of collagen vascular disease. No previous radiation therapy. Surgical History: Lumpectomy right breast in 08/2019, portacatheter placement dr. carreon in 09/2019, right salpingo-oopherectomy (cyst removal), tubal ligation and ultrasound directed biopsy of right breast mass and right axillary lymph node on 04/26/2019. Family History: Father of pancreatic cancer at age 75. Mother is still living and in good health at age 87. One brother and 5 sisters also are in good health. Social History: Last screened on 01/10/2020 - Current every day smoker 0.5 packs/day for 37 years (18.5 pack years). Last screened on 01/10/2020 - Never drank. Patient indicated use of the following products: cigarettes. Patient indicated access to the following support systems: Adequate transportation available for expected visits, Lives in own house, Lives with spouse, significant other, family, or friends, and Supportive family/friends willing to assist with needs. Patient indicated the following nutritional habits: Regular meals. Patient indicated participation in the following forms of activity: Light exercise. Obstetrics/Gynecology History: G3, P3. Age of menarche at 14 years old. Went through menapause around age 50. No H/O receiving HRT. Has H/O using BCP for 3 years. Current Complaints / Review of Systems: Constitutional - Complains of lack of appetite off and on. Complains of moderate fatigue. Complains of night sweats which occur every night. Denies fever and change in weight. Eyes - Denies blurred vision. ENMT - Complains of ear pain in both ears off and on, mouth dryness, altered taste and tinnitus in the left ear. Denies dysphagia and stomatitis. Neck - Denies neck pain. Integumentary - Denies rash. Breasts - Complains of nipple inversion. Denies nipple discharge and pain. Cardiovascular - Denies arrhythmias, chest pain and edema. Respiratory - Complains of a mild cough which is productive. Denies dyspnea and wheezing. Gastrointestinal - Complains of persistent constipation. Denies abdominal pain, diarrhea, heartburn / dyspepsia, melena / GI bleeding, nausea and vomiting. Genitourinary (F) - Complains of nocturia gets up about 3 times per night. Denies dysuria, frequency, urgency, vaginal discharge / bleeding and vaginal spotting. Musculoskeletal - Denies bone pain and joint pain. Neurologic - Complains of intermittent dizziness. Complains of headaches which happens occasionally. Complains of sensory problems in both the hands and the feet. Denies abnormal gait. Endocrine - Complains of frequent hot flashes. Denies diabetes and thyroid disease. Hematologic/Lymphatic - Denies tender or enlarged lymph nodes.. Vital Signs: Performed on 01/10/2020 10:59 AM BMI - 29.488 kg/m2 (high), Height - 65.00 in, Weight - 177.2 lbs, Temperature - 98.1 f, Pulse - 73, Respiration - 18, O2 Sat - 98 %, Pain - 0 and BP - 102/ 70 mm(hg). Physical Exam: General: Alert and oriented x 3. No acute distress. HEENT: Normocephalic, atraumatic. Extraocular Movements Intact: Pupils Equal, Round, Reactive to Light and Accommodation: Sclerae anicteric. Oral cavity is clear without lesions, masses or ulcers. NECK: Supple without supraclavicular or jugular lymphadenopathy. LUNGS: Clear to auscultation bilaterally without rales, rhonchi or wheeze. HEART: Regular rate and rhythm, normal S1 and S2 without murmur, gallop or rub. BREASTS: There is no mass/nodule palpated of the right breast. No skin change, nipple discharge or retraction. The surgical incision has healed up well with no signs of bleeding or infection. No enlarged lymph nodes in the axilla. Exam of the contralateral breast is unremarkable. MUSCULOSKELETAL: No tenderness or percussion pain over the axial skeleton, scapulae or pelvis. ABDOMEN: Soft, nontender, nondistended without masses or organomegaly. Bowel sounds are present. EXTREMITIES: No peripheral edema is identified. Limited motor and sensory examination are grossly intact and symmetric bilaterally. NEUROLOGIC: Cranial nerves II ???XII are grossly intact. Normal sensation, strength 5/5 in all extremities, normal gait, no ataxia. Performance Status: 0 - Fully active, able to carry on all predisease activities without restrictions. (ECOG) Pathology: infiltrating ductal carcinoma, grade 2, ER+, CT+, Her 2-; final surgical margin (-) Lab: Test performed on 12/26/2019 10:33 AM WBC - 3.6 10 3/ul (low), RBC - 2.96 10 6/ul (low), HGB - 10.5 g/dl (low), HCT - 32.4 % (low), MCV - 109.5 fl (high), MCH - 35.5 pg (high), RDW - 17.2 % (high) and eGFR - 87.2 ml/min (low). Imaging: See HPI Impression: The patient is a 54 year old female diagnosed with pT1c, pN2a, M0 infiltrating ductal carcinoma of the right breast, grade 2, ER+, CT+, Her2-, s/p right lumpectomy and axillary lymph nodes dissection. Surgical margins are negative. Plan: I recommend adjuvant right whole breast and regional lymph nodes irradiation to 50Gy followed by a boost to the tumor bed of 10Gy. The procedure, benefit, risks and potential side effects of radiation therapy were explained to the patient and her family in detail. The potential side effects include but are not limited to fatigue, skin reaction, breast swelling/tenderness, fibrosis, slightly increased risk of rib fracture, damage to the lung and heart, lymphedema and secondary malignancy. I recommended her to quit smoking completely at least during the course of radiotherapy because smoking increases radiation toxicities. Ms Melendez has expressed good understanding and decided to proceed with the radiotherapy. She will be scheduled for CT simulation. In the mean time, we will refer her to lymphedema clinic for evaluation. Signed by: 01/14/2020 8:47:16 PM <<Signature on File>> CPT Code: CPT Code:
--- NOTE | 2020-01-21 | CT_ITS ---
Radiation Therapy Planning CT images; total exam DLP: 584.51 mGy-cm MTDD
--- NOTE | 2020-01-31 16:52 | ONCRAD TMN_ITS ---
Radiation Oncology Weekly Treatment Management Patient: Nola Melendez MR#: [id number] : 1965 Age: 54 Sex: Female Dictated by: Dr. Wali Ventura Date of Service: 01/31/2020 Referring Physician(s) : Jeferson Dow M.D. Primary Diagnosis: Z17.0 - Estrogen receptor positive status [ER+], Diagnosed 09/26/2019 (Active) C50.111 - Malignant neoplasm of central portion of right female breast, Diagnosed 09/26/2019 (Active) Stage IB, T1c, pN2a, M0, G2, HER2 Neg, ER Pos, [place] Radiotherapy to date: Course: RT Breast 2019, Treatment Site: R [id number], Ref. ID: RT [id number], Energy: 6X, Dose/Fx (cGy): 200, #Fx: 3 / 25, Dose Correction (cGy): 0, Total Dose (cGy): 600, Start Date: 01/29/2020, Elapsed Days: 2 Course: RT Breast 2019, Treatment Site: SCLV PAB 50Gy, Ref. ID: SCLV PAB, Energy: 15X, Dose/Fx (cGy): 200, #Fx: 3 / 25, Dose Correction (cGy): 0, Total Dose (cGy): 600, Start Date: 01/29/2020, Elapsed Days: 2 Current Complaints/Interval History: She had her third treatment today. She has no complaints. She has no questions about the treatment process or treatment set up. She was then encouraged to speak up for questions or problems. Continue treatment according to plan. Current Medications: Acetaminophen, benadryl, benzonatate, dexamethasone, dexamethasone, dexamethasone Sodium Phosphate, emend, famotidine, famvir, fluconazole, ibuprofen, levoFLOXacin, lidocaine-Prilocaine, lORazepam, fsozolgu-Jtgolboup-JK, nicotine Step 2, nystatin, omeprazole, pACLitaxel, prochlorperazine Maleate, prochlorperazine Maleate, sulfamethoxazole-Trimethoprim, zithromax Z-Sha, zofran. Allergies: Augmentin. Vital Signs: Physical Exam: Appears stable, no skin erythema or desquamation. Performance Status: 0 - Fully active, able to carry on all predisease activities without restrictions. (ECOG) Lab: None pending in Radiation Oncology. Imaging: No new diagnostic imaging was performed since the last weekly treatment visit. All radiation therapy related imaging (including but not limited to kV, MV, and CBCT generated images) was reviewed. Appropriate changes, if any, were made to assure accurate target localization. Impression/Plan: Tolerating treatment well with expected side effects. Continue treatment as planned. CPT: 41567 Signed by: Dr. Wali Ventura>01/31/2020 4:50:24 PM <<Signature on File>>
== END 2020-02-05 23:59 | disposition home or self-care (01) ==
LOC: ONCMED 06:49
PROVIDERS: Absent Provider Internal Medicine Medical Oncology; Family Provider Family Medicine
DX: Z51.0 Encounter for antineoplastic radiation therapy (principal); C50.111 Malignant neoplasm of central portion of right female breast; C77.3 Secondary and unspecified malignant neoplasm of axilla and upper limb lymph nodes; G62.0 Drug-induced polyneuropathy; T45.1X5A Adverse effect of antineoplastic and immunosuppressive drugs, initial encounter; Z17.0 Estrogen receptor positive status [ER+]; F17.210 Nicotine dependence, cigarettes, uncomplicated; Z79.899 Other long term (current) drug therapy
CPT/HCPCS: 77280; 77290; 77295; 77300; 77334; 77387; 77412; 99205

== ENCOUNTER 2020-03-06 06:53 | Outpatient (RCR) | payer BC, SELFPAY ==
[2020-02-07 09:05] LABS: Basophils # 0.1 10^3/uL (0.0-0.1); Eosinophils # 0.3 10^3/uL (0.0-0.8); Eosinophils % 4.4 %; Hematocrit 42.4 % (37.0-47.0); Hemoglobin 13.7 g/dL (11.5-15.3); Lymphocytes # 1.3 10^3/uL (0.8-4.8); Lymphocytes % 22.8 %; Mean Corpuscular HGB Conc 32.3 g/dL (30.0-36.0); Mean Corpuscular Hemoglobin 33.9 pg (28.0-34.0); Mean Platelet Volume 10.1 fL (7.4-10.4); Monocytes # 0.8 10^3/uL (0.2-0.9); Monocytes % 13.4 %; Neutrophils # 3.3 10^3/uL (1.8-7.7); Neutrophils % 58.1 %; Nucleated Red Blood Cells % 0 %; Platelet Count 282 10^3/cmm (130-400); Red Blood Count 4.04 10^6/uL (4.1-5.3); Red Cell Distribution Width 12.3 % (12.1-15.1); White Blood Count 5.7 10^3/uL (4.0-10.0)
[2020-02-07 09:15] LABS: Alanine Aminotransferase 15 U/L (0-33); Albumin Level 4.3 g/dL (3.5-5.2); Alkaline Phosphatase 70 IU/L (35-105); Anion Gap 15.7 (5-19); Aspartate Amino Transferase 15 U/L (0-32); Blood Urea Nitrogen 8 mg/dL (6-20); Calcium 9.9 mg/dL (8.5-10.5); Carbon Dioxide 25 mmol/L (22-29); Chloride 101 mmol/L (98-107); Globulin 2.7 g/dL (1.3-4.6); Glomerular Filtration Rate 104.2 mL/min (90-130); Glucose 103 mg/dL (65-115); Osmolality Calculated 282 mOsm/kg (285-295); Potassium 3.7 mmol/L (3.5-5.1); Sodium 138 mmol/L (136-145); Total Bilirubin 0.2 mg/dL (0.15-1.2)
--- NOTE | 2020-02-12 16:22 | ONCRAD TMN_ITS ---
Radiation Oncology Weekly Treatment Management Patient: Nola Melendez MR#: [id number] : 1965 Age: 54 Sex: Female Dictated by: Dr. Anthony Wan Date of Service: 02/12/2020 Referring Physician(s) : Jeferson Dow M.D. Primary Diagnosis: Z17.0 - Estrogen receptor positive status [ER+], Diagnosed 09/26/2019 (Active) C50.111 - Malignant neoplasm of central portion of right female breast, Diagnosed 09/26/2019 (Active) Stage IB, T1c, pN2a, M0, G2, HER2 Neg, ER Pos, [place] Radiotherapy to date: Course: RT Breast 2019, Treatment Site: R [id number], Ref. ID: RT [id number], Energy: 6X, Dose/Fx (cGy): 200, #Fx: , Dose Correction (cGy): 0, Total Dose (cGy): 2,200, Start Date: 01/29/2020, Elapsed Days: 14 Course: RT Breast 2019, Treatment Site: SCLV PAB 50Gy, Ref. ID: SCLV PAB, Energy: 15X,, Dose/Fx (cGy): 200, #Fx: , Dose Correction (cGy): 0, Total Dose (cGy): 2,200, Start Date: 01/29/2020, Elapsed Days: 14 Current Complaints/Interval History: Current Medications: Acetaminophen, benadryl, benzonatate, dexamethasone, dexamethasone, dexamethasone Sodium Phosphate, emend, famotidine, famvir, fluconazole, ibuprofen, levoFLOXacin, lidocaine-Prilocaine, lORazepam, zzrklspp-Acxrclinj-FK, nicotine Step 2, nystatin, omeprazole, pACLitaxel, prochlorperazine Maleate, prochlorperazine Maleate, sulfamethoxazole-Trimethoprim, zithromax Z-Sha, zofran. Allergies: Augmentin. Vital Signs: Physical Exam: Appears stable, no skin erythema or desquamation. Performance Status: 0 - Fully active, able to carry on all predisease activities without restrictions. (ECOG) Lab: None pending in Radiation Oncology. Imaging: No new diagnostic imaging was performed since the last weekly treatment visit. All radiation therapy related imaging (including but not limited to kV, MV, and CBCT generated images) was reviewed. Appropriate changes, if any, were made to assure accurate target localization. Impression/Plan: Tolerating treatment well with expected side effects. Continue treatment as planned. CPT: 02014 Signed by: Dr. Anthony Wan>02/12/2020 4:22:02 PM <<Signature on File>>
--- NOTE | 2020-02-19 16:28 | ONCRAD TMN_ITS ---
Radiation Oncology Weekly Treatment Management Patient: Nola Melendez MR#: [id number] : 1965> Age: 54> Sex: Female Dictated by: Dr. Anthony Wan Date of Service: 02/19/2020 Referring Physician(s) : Jeferson Dow M.D. Primary Diagnosis: Z17.0 - Estrogen receptor positive status [ER+], Diagnosed 09/26/2019 (Active) C50.111 - Malignant neoplasm of central portion of right female breast, Diagnosed 09/26/2019 (Active) Stage IB, T1c, pN2a, M0, G2, HER2 Neg, ER Pos, [place] Radiotherapy to date: Course: RT Breast 2019, Treatment Site: R [id number], Ref. ID: RT [id number], Energy: 6X, Dose/Fx (cGy): 200, #Fx: 16 / 25, Dose Correction (cGy): 0, Total Dose (cGy): 3,200, Start Date: 01/29/2020, Elapsed Days: 21 Treatment Site: SCLV PAB 50Gy, Ref. ID: SCLV PAB, Energy: 15X, Dose/Fx (cGy): 200, #Fx: 16 / 25, Dose Correction (cGy): 0, Total Dose (cGy): 3,200, Start Date: 01/29/2020,Elapsed Days: 21 Current Complaints/Interval History: Constitutional Complains of lack of appetite off and on. Complains of mild fatigue. Complains of night sweats which occur every night. Denies fever and change in weight. ENMT Complains of dysphagia but is improving. Integumentary Has pinkness to the breast and under the right arm Breasts Denies pain. Cardiovascular Denies chest pain. Respiratory Denies cough, dyspnea and wheezing. Current Medications: Acetaminophen, benadryl, benzonatate, dexamethasone, dexamethasone, dexamethasone Sodium Phosphate, emend, famotidine, famvir, fluconazole, ibuprofen, levoFLOXacin, lidocaine-Prilocaine, lORazepam, mouthwash Compounding Base, bxkvncxd-Dkpowkjum-HT, nicotine Step 2, nystatin, omeprazole, pACLitaxel, prochlorperazine Maleate, prochlorperazine Maleate, sulfamethoxazole-Trimethoprim, zithromax Z-Sha, zofran. Allergies: Augmentin. Vital Signs: Performed on 02/19/2020 4:07 PM BMI - 28.523 kg/m2 (high), Height - 65.00 in, Weight - 171.4 lbs, Temperature - 97.9 f, Pulse - 75, Respiration - 18, O2 Sat - 98 %, Pain - 0 and BP - 111/ 67 mm(hg). Physical Exam: Appears stable, no skin erythema or desquamation. Performance Status: 0 - Fully active, able to carry on all predisease activities without restrictions. (ECOG) Lab: None pending in Radiation Oncology. Test performed on 10/10/2019 7:32 AM Manual Monocytes Abs - 1.5 10 3/cmm (high), Test performed on 02/07/2020 8:30 AM RBC - 4.04 10 6/ul (low) and MCV - 105.0 fl (high). Imaging: No new diagnostic imaging was performed since the last weekly treatment visit. All radiation therapy related imaging (including but not limited to kV, MV, and CBCT generated images) was reviewed. Appropriate changes, if any, were made to assure accurate target localization. Impression/Plan: Tolerating treatment well with expected side effects. Continue treatment as planned. CPT: 21831 Signed by: Dr. Anthony Wan>02/19/2020 4:26:07 PM <<Signature on File>>
--- NOTE | 2020-02-27 17:08 | ONCRAD TMN_ITS ---
Radiation Oncology Weekly Treatment Management Patient: Nola Melendez MR#: [id number] : 1965> Age: 54> Sex: Female Dictated by: Dr. Phi Knight Date of Service: 02/27/2020 Referring Physician(s) : Jeferson Dow M.D. Primary Diagnosis: Z17.0 - Estrogen receptor positive status [ER+], Diagnosed 09/26/2019 (Active) C50.111 - Malignant neoplasm of central portion of right female breast, Diagnosed 09/26/2019 (Active) Stage IB, T1c, pN2a, M0, G2, HER2 Neg, ER Pos, [place] Radiotherapy to date: Course: RT Breast 2019, Treatment Site: R [id number], Ref. ID: RT [id number], Energy: 6X, Dose/Fx (cGy): 200, #Fx: 25, Dose Correction (cGy): 0, Total Dose (cGy): 4,400, Start Date: 01/29/2020, Elapsed Days: 29 Treatment Site: SCLV PAB 50Gy, Ref. ID: SCLV PAB, Energy: 15X, Dose/Fx (cGy): 200, #Fx: 25, Dose Correction (cGy): 0, Total Dose (cGy): 4,400, Start Date: 01/29/2020, Elapsed Days: 29 Current Complaints/Interval History: Some itchiness over breast with no real pain.Eating ok. 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 Using [employer]. PE brisk erythema and tanning over right breast. No desquamation. Constitutional Complains of fatigue. Complains of night sweats which occur every night. Denies lack of appetite and fever. ENMT Denies dysphagia. Integumentary Has redness to the right breast, calivical and axilla Breasts Denies pain. Cardiovascular Denies chest pain. Respiratory Complains of a mild cough which is productive. Denies dyspnea and wheezing. Current Medications: Acetaminophen, benadryl, benzonatate, dexamethasone, dexamethasone, dexamethasone Sodium Phosphate, emend, famotidine, famvir, fluconazole, ibuprofen, levoFLOXacin, lidocaine-Prilocaine, lORazepam, mouthwash Compounding Base, zlrxxbkk-Pzufvabtk-HE, nicotine Step 2, nystatin, omeprazole, pACLitaxel, prochlorperazine Maleate, prochlorperazine Maleate, sulfamethoxazole-Trimethoprim, zithromax Z-Sha, zofran. Allergies: Augmentin. Vital Signs: Performed on 02/27/2020 3:20 PM BMI - 28.789 kg/m2 (high), Height - 65.00 in, Weight - 173.0 lbs, Temperature - 97.0 f, Pulse - 81, Respiration - 18, O2 Sat - 99 %, Pain - 0 and BP - 109/ 76 mm(hg). Physical Exam: Appears stable, no skin erythema or desquamation. Performance Status: 0 - Fully active, able to carry on all predisease activities without restrictions. (ECOG) Lab: None pending in Radiation Oncology. Test performed on 10/10/2019 7:32 AM Manual Monocytes Abs - 1.5 10 3/cmm (high), Test performed on 02/07/2020 8:30 AM RBC - 4.04 10 6/ul (low) and MCV - 105.0 fl (high). Imaging: No new diagnostic imaging was performed since the last weekly treatment visit. All radiation therapy related imaging (including but not limited to kV, MV, and CBCT generated images) was reviewed. Appropriate changes, if any, were made to assure accurate target localization. Impression/Plan: Tolerating treatment well with expected side effects. Continue treatment as planned. CPT: 21660 Signed by: Dr. Phi Knight>02/27/2020 5:07:14 PM <<Signature on File>>
--- NOTE | 2020-03-04 17:07 | ONCRAD TMN_ITS ---
Radiation Oncology Weekly Treatment Management Patient: Nola Melendez MR#: [id number] : 1965> Age: 54> Sex: Female Dictated by: Dr. Phi Knight Date of Service: 03/04/2020 Referring Physician(s) : Jeferson Dow M.D. Primary Diagnosis: Z17.0 - Estrogen receptor positive status [ER+], Diagnosed 09/26/2019 (Active) C50.111 - Malignant neoplasm of central portion of right female breast, Diagnosed 09/26/2019 (Active) Stage IB, T1c, pN2a, M0, G2, HER2 Neg, ER Pos, [place] Radiotherapy to date: Course: RT Breast 2019, Treatment Site: [id number], Ref. ID: [id number], Energy: 15X/6X, Dose/Fx (cGy): 200, #Fx: 1 / 5, Dose Correction (cGy): 0, Total Dose (cGy): 200, Start Date: 03/04/2020, Elapsed Days: 0 Treatment Site: R [id number], Ref. ID: RT [id number], Energy: 6X, Dose/Fx (cGy): 200, #Fx: 25 / 25, Dose Correction (cGy): 0, Total Dose (cGy): 5,000, Start Date: 01/29/2020, End Date: 03/03/2020, Elapsed Days: 34 Treatment Site: SCLV PAB 50Gy, Ref. ID: SCLV PAB, Energy: 15X, Dose/Fx (cGy): 200, #Fx: 25 / 25, Dose Correction (cGy): 0, Total Dose (cGy): 5,000, Start Date: 01/29/2020, End Date: 03/03/2020, Elapsed Days: 34 Current Complaints/Interval History: Generally doing well. Some medial skin peeling. Eating ok and able to work. Constitutional Complains of moderate fatigue. Complains of night sweats which occur every night. Denies lack of appetite and fever. ENMT Denies dysphagia. Integumentary Has desquamation to the right breast Breasts Denies pain. Cardiovascular Denies chest pain. Respiratory Denies cough, dyspnea and wheezing. Current Medications: Acetaminophen, benadryl, benzonatate, dexamethasone, dexamethasone, dexamethasone Sodium Phosphate, emend, famotidine, famvir, fluconazole, ibuprofen, levoFLOXacin, lidocaine-Prilocaine, lORazepam, mouthwash Compounding Base, pnscltgu-Ihayvhopj-ZX, nicotine Step 2, nystatin, omeprazole, pACLitaxel, prochlorperazine Maleate, prochlorperazine Maleate, sulfamethoxazole-Trimethoprim, zithromax Z-Sha, zofran. Allergies: Augmentin. Vital Signs: Performed on 03/04/2020 3:58 PM BMI - 28.057 kg/m2 (high), Height - 65.00 in, Weight - 168.6 lbs, Temperature - 97.4 f, Pulse - 73, Respiration - 18, O2 Sat - 97 %, Pain - 0 and BP - 102/ 70 mm(hg). Physical Exam: brisk erythema and tanning over breast. Minimal peeling medially Performance Status: 0 - Fully active, able to carry on all predisease activities without restrictions. (ECOG) Lab: None pending in Radiation Oncology. Test performed on 10/10/2019 7:32 AM Manual Monocytes Abs - 1.5 10 3/cmm (high), Test performed on 02/07/2020 8:30 AM RBC - 4.04 10 6/ul (low) and MCV - 105.0 fl (high). Imaging: No new diagnostic imaging was performed since the last weekly treatment visit. All radiation therapy related imaging (including but not limited to kV, MV, and CBCT generated images) was reviewed. Appropriate changes, if any, were made to assure accurate target localization. Impression/Plan: Tolerating treatment well with expected side effects. Continue treatment as planned. CPT: 61361 Signed by: Dr. Phi Knight>03/04/2020 5:05:35 PM <<Signature on File>>
== END 2020-03-06 23:59 | disposition home or self-care (01) ==
LOC: ONCMED 06:53
PROVIDERS: Absent Provider Internal Medicine Medical Oncology; Family Provider Family Medicine; PCP Family Medicine; Visit Provider Radiology Radiation Oncology
DX: Z51.0 Encounter for antineoplastic radiation therapy (principal); C50.111 Malignant neoplasm of central portion of right female breast; Z17.0 Estrogen receptor positive status [ER+]; L58.0 Acute radiodermatitis; Y84.2 Radiological procedure and radiotherapy as the cause of abnormal reaction of the patient, or of later complication, without mention of misadventure at the time of the procedure; Z79.52 Long term (current) use of systemic steroids
CPT/HCPCS: 36591; 77307; 77334; 77336; 77412; 77417; 80053; 85025

== ENCOUNTER 2020-04-02 07:05 | Outpatient (RCR) | payer BC, SELFPAY ==
[2020-03-13 09:39] LABS: Basophils % 0.7 %; Eosinophils # 0.3 10^3/uL (0.0-0.8); Eosinophils % 5.2 %; Hematocrit 42.2 % (37.0-47.0); Hemoglobin 13.3 g/dL (11.5-15.3); Lymphocytes # 1.1 10^3/uL (0.8-4.8); Lymphocytes % 19.2 %; Mean Corpuscular HGB Conc 31.5 g/dL (30.0-36.0); Mean Corpuscular Hemoglobin 32.4 pg (28.0-34.0); Mean Corpuscular Volume 102.7 fL (81-99); Mean Platelet Volume 9.8 fL (7.4-10.4); Monocytes # 0.7 10^3/uL (0.2-0.9); Monocytes % 12.7 %; Neutrophils # 3.5 10^3/uL (1.8-7.7); Nucleated Red Blood Cells % 0 %; Platelet Count 228 10^3/cmm (130-400); Red Blood Count 4.11 10^6/uL (4.1-5.3); Red Cell Distribution Width 12.3 % (12.1-15.1); White Blood Count 5.6 10^3/uL (4.0-10.0)
[2020-03-13 09:54] LABS: Alanine Aminotransferase 15 U/L (0-33); Alkaline Phosphatase 68 IU/L (35-105); Aspartate Amino Transferase 13 U/L (0-32); Blood Urea Nitrogen 7 mg/dL (6-20); Calcium 9.9 mg/dL (8.5-10.5); Carbon Dioxide 27 mmol/L (22-29); Chloride 102 mmol/L (98-107); Globulin 2.6 g/dL (1.3-4.6); Glomerular Filtration Rate 87.2 mL/min (90-130); Glucose 96 mg/dL (65-115); Osmolality Calculated 280 mOsm/kg (285-295); Sodium 137 mmol/L (136-145); Total Bilirubin 0.2 mg/dL (0.15-1.2); Total Protein 6.6 g/dL (6.6-8.7)
--- NOTE | 2020-03-16 12:49 | ONC FU_ITS ---
Dr. Marin Patient Follow-Up Note Patient: Nola Melendez < Unit #: [id number]: 1965 Dicatated By: Gulshan Marin M.D.Date of Visit:March 13, 2020 Onc Med Follow-up/Prog Note Chief Complaint: Breast cancer. History of Present Illness: This is a 54 year-old woman with grade 2 invasive ductal carcinoma of the right breast, stage IIB (T1c, pN2a, M0), ER/VT positive and HER-2/matias negative. She had presented with an abnormal screening mammogram. The study, from 03/15/2019, showed a suspected spiculated mass with distortion and possible skin deformity in the deep midportion of the right breast centrally. The visualized lower x-ray lymph nodes appeared somewhat more plump or mildly enlarged as well. She had further evaluation with diagnostic mammogram and right breast ultrasound on 04/09/2019. The mammogram showed an irregular mass in the central to inferior right breast measuring approximately 2 cm. Ultrasound showed irregular hypoechoic mass within the central right breast measuring 1.5 x 2.0 x 1.6 cm. The margins were indistinct and there was posterior acoustic shadowing, highly suggestive of malignancy. The right axilla demonstrated at least 2 cortically thickened lymph nodes. She underwent ultrasound guided biopsy of the breast mass and of a right axillary lymph node on 04/26/2019. Pathology on the breast lesion showed grade 2 invasive ductal carcinoma which was ER positive at 94% and VT positive at 74%. The tumor was negative for overexpression of HER-2/matias, 1+ by IHC. The axillary lymph node was positive for metastatic ductal carcinoma with the size of the tumor measuring at least 7 mm. There was no extracapsular extension. The breast prognostic profile on the axillary lymph node showed ER positive at 95% and VT positive at 92%. HER-2/matias was equivocal by IHC (2+), but negative by FISH with amplification ratio 1.06 and 2.1 HER2 signals per cell. I had seen her initially on 05/28/2019. At that point I had recommended further evaluation with Oncotype DX. It showed a recurrence score of 19, corresponding to a recurrence risk of 16% with hormonal therapy, assuming 1-3 positive lymph nodes. A benefit with chemotherapy was not excluded. With those findings, I did not feel there is a definite indication for neoadjuvant chemotherapy. She then proceeded with right breast lumpectomy and right axillary lymph node dissection on 07/20/2019. Pathology showed invasive moderately differentiated mammary carcinoma with lobular differentiation. It measured 1.9 cm in greatest dimension. Focally did show high-grade features. Invasive carcinoma was present at the cranial and anterior margins. There was involvement in 8/8 axillary lymph nodes, the largest measuring 0.8 cm. Extracapsular extension was identified. She then underwent reexcision lumpectomy on 08/23/2019. There was no residual invasive carcinoma identified. Focal atypical lobular hyperplasia was present in the reexcision of the cranial margin, but the final margin was free of ALH. She has been in good general health. She has no prior medical illnesses. Prior surgeries have been limited to right salpingo-oophorectomy for removal of a benign cyst and tubal ligation. She underwent natural menopause at age 50. She does have a history of smoking 1/2 pack of cigarettes daily since age 16. INTERIM HISTORY: She began cycle 1 of Adriamycin/cyclophosphamide on 09/26/2019. She had significant fatigue following the chemotherapy, but she was able to tolerate it with acceptable toxicity. She then continued with cycle 2 on 10/11/2019, with cycle 3 on 10/25/2019, and with cycle 4 on 11/08/2019. On 11/22/2019 she began her 1st of 12 planned weekly cycles of paclitaxel. As of 12/20/2019 she had completed her 5th weekly infusion of paclitaxel. At her follow-up on 12/27/2019 her treatment was put on hold due to worsening neuropathy. She has began radiation to the right breast on 01/29/2020. She completed treatment on 03/10/2020. Total dose to the breast was 6000 cGy. She received 5000 cGy to the supraclavicular region. She is seen for a followup visit. She has been feeling good generally. Her energy is good now and her activity is back to normal. ECOG score is 0. Her appetite is variable. Her weight is down a little. She has not had fever. She does report having hot flashes and sweating. She still has neuropathy, which comes and goes. Overall it is not as bad. She does not complain of shortness of breath. She has a little bit of cough. She still smokes 1/2 pack of cigarettes daily. She does not complain of chest pain. She has no GI/ complaints other than some urinary frequency and nocturia. She has no significant joint or bone pain. Medications: Ibuprofen 4 Tablet (of 200 mg) Oral PRN Allergies: Augmentin Review of Systems: Constitutional - She is feeling good and her energy level is really good. She has normal activity and she is working as a [employer] without restrictions. Her appetite comes and goes. Her weight is down a few pounds. No fever or chills. She is having hot flashes with sweating. ECOG score is 0, ENMT - No sinus congestion/drainage. No mouth sores. No sore throat or difficulty swallowing, Hematologic/Lymphatic - No abnormal bruising or bleeding, Respiratory - No shortness of breath. She has a occasional smokers cough. No pleuritic pain or hemoptysis, Cardiovascular - No angina pain. No palpitations, Gastrointestinal - No nausea or vomiting. No heartburn or acid reflux. No diarrhea or constipation. No blood in the stool or black stools, Genitourinary (F) - No dysuria or hematuria. No urinary frequency. No urgency or incontinence, Musculoskeletal - No joint or bone pain, Integumentary - No skin complications, Neurologic - No headache or dizziness. 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 No insomnia. Vital Signs: Performed on March 13, 2020 09:54 Height - 65.00 in Weight - 171.2 lbs (HIGH) BSA - 1.85 sq.m BMI - 28.49 Temperature - 98.0 F (LOW) Pulse - 89 /min Respiration - 20 /min BP - 119/65 mm(hg) O2 Sat - 99 % Pain - 0 Physical Examination: Constitutional - She looks pretty good generally, Eyes - Sclerae nonicteric. Conjunctivae clear, ENMT - No lesions noted in the oral cavity, Hematologic/Lymphatic - No cervical or clavicular adenopathy, Respiratory - Lungs are clear with some decrease in air movement bilaterally, Cardiovascular - Heart rhythm is regular. There is no murmur, gallop, or rub noted, Breasts - The right breast has residual hyperpigmentation from the radiation. There are no breast masses noted. There is no axillary adenopathy, Abdomen - Soft. Liver and spleen are not enlarged. There is no abdominal mass or ascites noted and there is no inguinal adenopathy, Extremities - No edema, Neurologic - No focal neurologic deficits noted. Lab/Imaging: Test performed on March 13, 2020 09:23 Sodium 137 mmol/L Potassium 4.0 mmol/L Chloride 102 mmol/L CO2 27 mmol/L Anion Gap 12.0 BUN 7 mg/dL Creatinine 0.7 mg/dL Cr Clearance (Est) 121.1900 mL/min eGFR 87.2 mL/min Glucose 96 mg/dL Calcium 9.9 mg/dL Protein, Total 6.6 g/dL Albumin 4.0 g/dL Globulin 2.6 g/dL Bilirubin, Total 0.2 mg/dL ALT (SGPT) 15 U/L AST (SGOT) 13 U/L Alkaline Phosphatase 68 IU/L WBC 5.6 10 3/uL RBC 4.11 10 6/uL HGB 13.3 g/dL HCT 42.2 % MCV 102.7 fL MCH 32.4 pg MCHC 31.5 g/dL RDW 12.3 % Platelet Count 228 10 3/cmm MPV 9.8 fL Neutrophils 3.5 10 3/uL Lymphocytes 1.1 10 3/uL Monocytes 0.7 10 3/uL Eosinophils 0.3 10 3/uL Basophils 0.0 10 3/uL Neutrophil % 62.0 % Lymphocyte % 19.2 % Monocyte % 12.7 % Eosinophil % 5.2 % Basophils % 0.7 % Impression: 1. Patient with grade 2 invasive ductal carcinoma of the right breast, stage IIB (T1c, pN2a, M0), ER/VT positive and HER-2/matias negative. 2. She underwent ultrasound directed biopsy of right breast mass and right axillary lymph node on 04/26/2019. Her Oncotype DX showed a recurrence score of 19, corresponding to a recurrence risk of 16% with hormonal therapy, assuming 1-3 positive lymph nodes. A benefit with chemotherapy was not excluded. With those findings, I did not feel there was a definite indication for neoadjuvant chemotherapy. 3. She underwent right breast lumpectomy with axillary lymph node dissection on 07/20/2019 followed by reexcision lumpectomy with final margins negative. She was given adjuvant chemotherapy with dose dense Adriamycin/cyclophosphamide followed by weekly Taxol. She completed 4 cycles of Adriamycin/cyclophosphamide from 09/26/2019 thru 11/08/2019. She had significant fatigue with it, but she otherwise tolerated it well. She then began her 1st of 12 planned weekly cycles of paclitaxel on 11/22/2019. As of 12/20/2019 she had completed her 5th weekly infusion of paclitaxel. Her treatment was then put on hold due to worsening neuropathy. She then underwent radiation to the right breast/supraclavicular region. She completed treatment on 03/10/2020. The total dose to the breast was 6000 cGy. She received 5000 cGy to the supraclavicular region. She tolerated the treatment well. Plan: She will now begin adjuvant hormonal therapy. As she is postmenopausal, she is recommended to start treatment with anastrozole 1 mg daily. To the extent of her lymph node involvement, she will potentially be a candidate for longer term therapy, up to 10 years, depending on her tolerance and clinical course. We discussed the fact that this may cause or worsen osteoporosis. She will need a baseline bone density study, and she will be given treatment for bone health as indicated. She is also advised that it may cause joint pain as a side effect. She will be scheduled for a follow-up visit in 3 months. In the meantime, I also will arrange to have her Port-A-Cath removed. Signed By: Gulshan Marin M.D. <<Signature on File>>
--- NOTE | 2020-04-06 10:49 | ONC FU_ITS ---
Dr. Marin Patient Follow-Up Note Patient: Nola Melendez Unit #: [id number]: 1965 Dicatated By: Gulshan Marin M.D.Date of Visit:April 02, 2020 Onc Med Follow-up/Prog Note Chief Complaint: Breast cancer. History of Present Illness: This is a 54 year-old woman with grade 2 invasive ductal carcinoma of the right breast, stage IIB (T1c, pN2a, M0), ER/AL positive and HER-2/matias negative. She had presented with an abnormal screening mammogram. The study, from 03/15/2019, showed a suspected spiculated mass with distortion and possible skin deformity in the deep midportion of the right breast centrally. The visualized lower x-ray lymph nodes appeared somewhat more plump or mildly enlarged as well. She had further evaluation with diagnostic mammogram and right breast ultrasound on 04/09/2019. The mammogram showed an irregular mass in the central to inferior right breast measuring approximately 2 cm. Ultrasound showed irregular hypoechoic mass within the central right breast measuring 1.5 x 2.0 x 1.6 cm. The margins were indistinct and there was posterior acoustic shadowing, highly suggestive of malignancy. The right axilla demonstrated at least 2 cortically thickened lymph nodes. She underwent ultrasound guided biopsy of the breast mass and of a right axillary lymph node on 04/26/2019. Pathology on the breast lesion showed grade 2 invasive ductal carcinoma which was ER positive at 94% and AL positive at 74%. The tumor was negative for overexpression of HER-2/matias, 1+ by IHC. The axillary lymph node was positive for metastatic ductal carcinoma with the size of the tumor measuring at least 7 mm. There was no extracapsular extension. The breast prognostic profile on the axillary lymph node showed ER positive at 95% and AL positive at 92%. HER-2/matias was equivocal by IHC (2+), but negative by FISH with amplification ratio 1.06 and 2.1 HER2 signals per cell. I had seen her initially on 05/28/2019. At that point I had recommended further evaluation with Oncotype DX. It showed a recurrence score of 19, corresponding to a recurrence risk of 16% with hormonal therapy, assuming 1-3 positive lymph nodes. A benefit with chemotherapy was not excluded. With those findings, I did not feel there is a definite indication for neoadjuvant chemotherapy. She then proceeded with right breast lumpectomy and right axillary lymph node dissection on 07/20/2019. Pathology showed invasive moderately differentiated mammary carcinoma with lobular differentiation. It measured 1.9 cm in greatest dimension. Focally did show high-grade features. Invasive carcinoma was present at the cranial and anterior margins. There was involvement in 8/8 axillary lymph nodes, the largest measuring 0.8 cm. Extracapsular extension was identified. She then underwent reexcision lumpectomy on 08/23/2019. There was no residual invasive carcinoma identified. Focal atypical lobular hyperplasia was present in the reexcision of the cranial margin, but the final margin was free of ALH. She has been in good general health. She has no prior medical illnesses. Prior surgeries have been limited to right salpingo-oophorectomy for removal of a benign cyst and tubal ligation. She underwent natural menopause at age 50. She does have a history of smoking 1/2 pack of cigarettes daily since age 16. INTERIM HISTORY: She began cycle 1 of Adriamycin/cyclophosphamide on 09/26/2019. She had significant fatigue following the chemotherapy, but she was able to tolerate it with acceptable toxicity. She then continued with cycle 2 on 10/11/2019, with cycle 3 on 10/25/2019, and with cycle 4 on 11/08/2019. On 11/22/2019 she began her 1st of 12 planned weekly cycles of paclitaxel. As of 12/20/2019 she had completed her 5th weekly infusion of paclitaxel. At her follow-up on 12/27/2019 her treatment was put on hold due to worsening neuropathy. She has began radiation to the right breast on 01/29/2020. She completed treatment on 03/10/2020. Total dose to the breast was 6000 cGy. She received 5000 cGy to the supraclavicular region. On 03/13/2020 she began adjuvant hormonal therapy with anastrozole 1 mg daily. She is seen for an unplanned visit. She indicates that she was having significant dizziness with the anastrozole. Her description is consistent with vertigo. She stopped taking it a few days ago, and the dizziness now has resolved. She indicates that she was having fatigue on the medication, and her energy is also better now. She has been waking up sweating every night. She complains of having dry mouth. She has no shortness of breath, cough, or chest pain. She has no GI or complaints. She has no significant joint or bone pain, and she has no focal neurologic symptoms. Medications: Ibuprofen 4 Tablet (of 200 mg) Oral PRN Allergies: Augmentin Vital Signs: Performed on April 02, 2020 14:40 Height - 65.00 in Weight - 172.2 lbs (HIGH) BSA - 1.86 sq.m BMI - 28.66 Temperature - 97.6 F (LOW) Pulse - 88 /min Respiration - 18 /min BP - 97/67 mm(hg) O2 Sat - 97 % Pain - 0 Physical Examination: Constitutional - She looks good generally, Eyes - Sclerae nonicteric. Conjunctivae clear, ENMT - Mouth is dry. There are no lesions noted in the oral cavity, Hematologic/Lymphatic - No cervical, clavicular, or axillary adenopathy, Respiratory - Lungs are clear with some decrease in air movement bilaterally, Cardiovascular - Heart rhythm is regular. There is no murmur, gallop, or rub noted, Abdomen - Soft. Liver and spleen are not enlarged. There is no abdominal mass or ascites noted and there is no inguinal adenopathy, Extremities - No edema, Neurologic - No focal neurologic deficits noted. Impression: 1. Patient with grade 2 invasive ductal carcinoma of the right breast, stage IIB (T1c, pN2a, M0), ER/AL positive and HER-2/matias negative. 2. She underwent ultrasound directed biopsy of right breast mass and right axillary lymph node on 04/26/2019. Her Oncotype DX showed a recurrence score of 19, corresponding to a recurrence risk of 16% with hormonal therapy, assuming 1-3 positive lymph nodes. A benefit with chemotherapy was not excluded. With those findings, I did not feel there was a definite indication for neoadjuvant chemotherapy. 3. She underwent right breast lumpectomy with axillary lymph node dissection on 07/20/2019 followed by reexcision lumpectomy with final margins negative. She was given adjuvant chemotherapy with dose dense Adriamycin/cyclophosphamide followed by weekly Taxol. She completed 4 cycles of Adriamycin/cyclophosphamide from 09/26/2019 thru 11/08/2019. She had significant fatigue with it, but she otherwise tolerated it well. She then began her 1st of 12 planned weekly cycles of paclitaxel on 11/22/2019. As of 12/20/2019 she had completed her 5th weekly infusion of paclitaxel. Her treatment was then put on hold due to worsening neuropathy. She then underwent radiation to the right breast/supraclavicular region. She completed treatment on 03/10/2020. The total dose to the breast was 6000 cGy. She received 5000 cGy to the supraclavicular region. She tolerated the treatment well. On 03/13/2020 she began adjuvant hormonal therapy with anastrozole 1 mg daily. She stopped taking it a few days ago due to multiple side effects, the most significant being vertigo and fatigue. She is feeling better now. She also does complain of having significant night sweating, which I assume is hormone related. Plan: I will change her adjuvant hormonal therapy to exemestane 25 mg daily. She is to call if she has any adverse effects with it. She will follow-up as previously scheduled. In the meantime, she also will be given a prescription for venlafaxine 35 mg at bedtime for the hot flashes. Signed By: Gulshan Marin M.D. <<Signature on File>>
== END 2020-04-06 23:59 | disposition home or self-care (01) ==
LOC: ONCMED 07:05
PROVIDERS: Family Provider Family Medicine; PCP Family Medicine; Visit Provider Internal Medicine Medical Oncology
DX: Z51.0 Encounter for antineoplastic radiation therapy (principal); C50.111 Malignant neoplasm of central portion of right female breast; C77.3 Secondary and unspecified malignant neoplasm of axilla and upper limb lymph nodes; Z17.0 Estrogen receptor positive status [ER+]; L58.0 Acute radiodermatitis; Y84.8 Other medical procedures as the cause of abnormal reaction of the patient, or of later complication, without mention of misadventure at the time of the procedure; G62.0 Drug-induced polyneuropathy; T45.1X5D Adverse effect of antineoplastic and immunosuppressive drugs, subsequent encounter; F17.210 Nicotine dependence, cigarettes, uncomplicated; N95.1 Menopausal and female climacteric states; Z92.3 Personal history of irradiation; Z79.811 Long term (current) use of aromatase inhibitors; Z92.21 Personal history of antineoplastic chemotherapy
CPT/HCPCS: 77412; 80053; 85025; 96374; 99214; G0463; J2997

== ENCOUNTER 2020-04-09 15:30 | Outpatient (CLI) | payer BC, SELFPAY ==
--- NOTE | 2020-04-09 15:40 | XR_ITS ---
WS: [id number] DEXA (DUAL ENERGY X-RAY ABSORPTIOMETRY) Bone mineral density was performed using a [employer] machine. HISTORY: BREAST CANCER, ESTROGEN DEFICIENCY COMPARISON: None available. Lumbar spine BMD (L1-L4): 1.559 g/cm2 T score: 3.2 Z score: 3.6 Total hip BMD: Left: 1.107 g/cm2. T score: 0.8 Z score: 1.2 Right: 1.059 g/cm2. T score: 0.4 Z score: 0.8 10 year probability of a major osteoporotic fracture is 5%. XR/XR DEXA axial skeleton* [id number] IMPRESSION: NORMAL BONE MINERAL DENSITY based upon the WHO classification for females.
== END 2020-04-09 15:31 | disposition home or self-care (01) ==
LOC: RADWPI 15:32
PROVIDERS: Family Provider Family Medicine; PCP Family Medicine; Visit Provider Internal Medicine Medical Oncology
DX: C50.919 Malignant neoplasm of unspecified site of unspecified female breast (principal); Z17.0 Estrogen receptor positive status [ER+]
CPT/HCPCS: 77080

== ENCOUNTER 2020-06-12 09:03 | Outpatient (CLI) | payer BC, SELFPAY ==
--- NOTE | 2020-06-12 10:44 | ONCRAD EPV_ITS ---
Radiation Oncology Established Patient Visit Patient: Al Vaca [id number] : 1965 Age: 54 Sex: Female Dictated by: Dr. Nahid Lombardi Date of Service: 06/12/2020 Referring Physician(s) : Jeferson Dow Diagnosis: pT1c pN2a Grade 2 invasive ductal carcinoma right breast at the 1 o'clock position ER +95%, IN +92%, HER-2/matias negative (biopsy date 04/26/2019), Oncotype DX score 19 thus a 16% distant recurrence risk at 9 years with endocrine therapy alone (06/28/2019). Treatment rendered: -) Lumpectomy and right axillary dissection biopsy (07/24/2019). Pathology revealed a single focus of a 1.9 cm mass of invasive moderately differentiated mammary carcinoma with lobular differentiation, positive margins at the cranial and anterior position, 8/8 involved lymph nodes (7 lymph nodes with macro metastasis, and 1 lymph node with micrometastasis, largest lymph node metastatic deposit measuring 0.8 cm, & positive extracapsular extension. 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 -) Adjuvant radiation therapy: 50 Gy in 25 fractions to the entire right breast and draining lymphatics, followed by a lumpectomy cavity boost of 10 Gy in 5 fractions (01/29/2020-03/10/2020). -) Endocrine therapy anastrozole (not yet started). Current History: The patient is seen in follow-up, and she reports episodic blurred vision. On medical oncology colleagues have ordered an MRI of the brain to rule out intracranial metastasis. The patient reports that her acute side effects from radiation therapy have resolved well, and she has not yet begun taking endocrine therapy. She is waiting on the results of her MRI of the brain before deciding to take endocrine therapy. She reports no breast pain, no range of motion limitations in her right arm, and no right arm swelling. Per the patient, she is scheduled to receive a mammogram later on this month Current Medications: Acetaminophen, acetaminophen, anastrozole, benadryl, benzonatate, dexamethasone, dexamethasone Sodium Phosphate, emend, exemestane, famotidine, famvir, fluconazole, ibuprofen, levoFLOXacin, lidocaine-Prilocaine, mouthwash Compounding Base, bnojmcaa-Pfcauonox-YC, nicotine Step 2, nystatin, omeprazole, pACLitaxel, prochlorperazine Maleate, sulfamethoxazole-Trimethoprim, venlafaxine HCl, zithromax Z-Sha, zofran. Allergies: Augmentin. Current Complaints / Review of Systems: ROS Constitutional - Denies fevers, chills, night sweats, excessive fatigue or weight loss. ROS Allergic/Immunologic - No reactions. ROS Eyes - Spells of wavy vision/dizzy headed like feels really weak and generally has to lay down with these spells. No amaurosis. states sometimes vision seems like it may have some double vision but not frequent. ROS ENMT - Denies changes in hearing, sore throat, difficulty or changes in swallowing ability, and/or sinus drainage. She states her mouth feels dry all the time despite drinking 3-4 containers (32 ounces) of water daily. ROS Hematologic/Lymphatic - Denies easy bruising or bleeding. The patient denies any tender or palpable lymph nodes. ROS Respiratory - Denies dyspnea on exertion, chest pain, or hemoptysis. Denies orthopnea. ROS Cardiovascular - Denies anginal chest pain, palpitations or orthopnea. ROS Gastrointestinal - Denies nausea, vomiting with chemotherapy. Denies recurrent diarrhea. She denies any GI bleeding, or constipation. Denies change in bowel habits and/or stool color or early satiety. ROS Genitourinary (F) - No hematuria, hesitancy, incontinence, vaginal bleeding, discharge or other problems with urination. ROS Musculoskeletal - Denies joint pain, swelling or redness. No decreased range of motion. ROS Integumentary - Denies chronic rashes, inflammation, ulcerations or skin changes. ROS Neurologic - Denies headache, blurred vision, and no areas of focal weakness or numbness. Normal gait. No sensory problems. ROS Psychiatric - Denies insomnia, depression, suki or mood swings. Vital Signs: Performed on 06/12/2020 9:15 AM Height - 65.00 in, Weight - 175.0 lbs (high), BSA - 1.87 sq.m, BMI - 29.12, Temperature - 97.1 f (low), Pulse - 88 /min, Respiration - 19 /min, O2 Sat - 98 %, Pain - 0 and BP - 104/ 65 mm(hg). Physical Exam: General: Alert and oriented x 3. No acute distress. HEENT: Normocephalic, atraumatic. Extraocular Movements Intact: Pupils Equal, Round, Reactive to Light and Accommodation: Sclerae anicteric. Oral cavity is clear without lesions, masses or ulcers. NECK: Supple without supraclavicular or jugular lymphadenopathy. Breasts: The right breast is smaller than the left, minor scar retraction is appreciated in the septic breast, and there is no evidence of hyperpigmentation or persistent moist desquamation. Overall she has a favorable cosmetic result from the surgery. LUNGS: Clear to auscultation bilaterally without rales, rhonchi or wheeze. HEART: Regular rate and rhythm, normal S1 and S2 without murmur, gallop or rub. MUSCULOSKELETAL: No tenderness or percussion pain over the axial skeleton, scapulae or pelvis. EXTREMITIES: No peripheral edema is identified. Limited motor and sensory examination are grossly intact and symmetric bilaterally. NEUROLOGIC: Cranial nerves II ???XII are grossly intact. Normal sensation, strength 5/5 in all extremities, normal gait, no ataxia. Performance Status: 0 - Fully active, able to carry on all predisease activities without restrictions. (ECOG) Lab: None pending. Test performed on 03/13/2020 9:23 AM MCV - 102.7 fl (high) and eGFR - 87.2 ml/min (low). Impression: The patient is a 54-year-old female who has been diagnosed with pT1c pN2a Grade 2 invasive ductal carcinoma right breast at the 1 o'clock position ER +95%, IN +92%, HER-2/matias negative (biopsy date 04/26/2019.) She was treated with a right breast lumpectomy, and right axillary dissection (07/24/2019) followed by adjuvant dose dense AC chemotherapy and 5/12 cycles of paclitaxel (discontinued early due to neuropathy (12/20/2019), followed by adjuvant radiation therapy which consisted of 50 Gy in 25 fractions to the entire right breast and draining lymphatics, followed by a lumpectomy cavity boost of 10 Gy in 5 fractions (01/29/2020-03/10/2020). She has been prescribed an aromatase inhibitor, yet she has not begun to take it until the results of her MRI of the brain are known. Apparently, the patient has episodic blurred vision and our medical oncology colleagues have ordered an MRI of the brain to rule out malignancy. Recommended oncologic surveillance plan: -) History and physical exam 1-4 times per year x 5 years, then annually thereafter -) Annual mammogram. The patient's first new post treatment ???baseline mammogram??? should be completed 6 to 12 months status post radiation therapy. -) I recommended an active lifestyle, healthy diet, limited alcohol intake, and achieving/maintaining an ideal body weight of 20-25 BMI Signed by: 06/12/2020 10:42:10 AM <<Signature on File>> Time spent with patient: CPT Code: CPT Code:
[2020-06-12 11:08] LABS: Basophils % 0.6 %; Eosinophils # 0.2 10^3/uL (0.0-0.8); Eosinophils % 2.5 %; Hematocrit 43.9 % (37.0-47.0); Hemoglobin 13.9 g/dL (11.5-15.3); Lymphocytes # 1.4 10^3/uL (0.8-4.8); Lymphocytes % 21.5 %; Mean Corpuscular HGB Conc 31.7 g/dL (30.0-36.0); Mean Corpuscular Hemoglobin 31.8 pg (28.0-34.0); Mean Corpuscular Volume 100.5 fL (81-99); Mean Platelet Volume 9.8 fL (7.4-10.4); Monocytes # 0.8 10^3/uL (0.2-0.9); Monocytes % 12.2 %; Neutrophils # 4.22 10^3/uL (1.8-7.7); Neutrophils % 62.9 %; Nucleated Red Blood Cells % 0 %; Platelet Count 315 10^3/cmm (130-400); Red Blood Count 4.37 10^6/uL (4.1-5.3); White Blood Count 6.7 10^3/uL (4.0-10.0)
[2020-06-12 11:40] LABS: Alanine Aminotransferase 12 U/L (0-33); Albumin Level 4.5 g/dL (3.5-5.2); Alkaline Phosphatase 76 IU/L (35-105); Anion Gap 11.1 (5-19); Aspartate Amino Transferase 12 U/L (0-32); Blood Urea Nitrogen 9 mg/dL (6-20); Calcium 9.4 mg/dL (8.5-10.5); Carbon Dioxide 29 mmol/L (22-29); Chloride 102 mmol/L (98-107); Globulin 2.9 g/dL (1.3-4.6); Glomerular Filtration Rate 74.7 mL/min (90-130); Glucose 96 mg/dL (65-115); Osmolality Calculated 282 mOsm/kg (285-295); Potassium 4.1 mmol/L (3.5-5.1); Sodium 138 mmol/L (136-145); Thyroid Stimulating Hormone 2.67 uIU/mL (0.27-4.20); Total Bilirubin 0.3 mg/dL (0.15-1.2); Total Protein 7.4 g/dL (6.6-8.7)
--- NOTE | 2020-06-12 14:58 | ONC FU_ITS ---
[facility] Patient Note Patient: Nola Melendez < Unit #: [id number]: 1965 Dictated By: Helen RendonDate of Visit: Jun 12, 2020 Onc MED Follow-Up/Prog Note Chief Complaint: Breast cancer. History of Present Illness: Mrs Melendez is a 54 year-old woman with grade 2 invasive ductal carcinoma of the right breast, stage IIB (T1c, pN2a, M0), ER/TN positive and HER-2/matias negative. She had presented with an abnormal screening mammogram. The study, from 03/15/2019, showed a suspected spiculated mass with distortion and possible skin deformity in the deep midportion of the right breast centrally. The visualized lower x-ray lymph nodes appeared somewhat more plump or mildly enlarged as well. She had further evaluation with diagnostic mammogram and right breast ultrasound on 04/09/2019. The mammogram showed an irregular mass in the central to inferior right breast measuring approximately 2 cm. Ultrasound showed irregular hypoechoic mass within the central right breast measuring 1.5 x 2.0 x 1.6 cm. The margins were indistinct and there was posterior acoustic shadowing, highly suggestive of malignancy. The right axilla demonstrated at least 2 cortically thickened lymph nodes. She underwent ultrasound guided biopsy of the breast mass and of a right axillary lymph node on 04/26/2019. Pathology on the breast lesion showed grade 2 invasive ductal carcinoma which was ER positive at 94% and TN positive at 74%. The tumor was negative for overexpression of HER-2/matias, 1+ by IHC. The axillary lymph node was positive for metastatic ductal carcinoma with the size of the tumor measuring at least 7 mm. There was no extracapsular extension. The breast prognostic profile on the axillary lymph node showed ER positive at 95% and TN positive at 92%. HER-2/matias was equivocal by IHC (2+), but negative by FISH with amplification ratio 1.06 and 2.1 HER2 signals per cell. Dr Marin had seen her initially on 05/28/2019. At that point, he had recommended further evaluation with Oncotype DX. It showed a recurrence score of 19, corresponding to a recurrence risk of 16% with hormonal therapy, assuming 1-3 positive lymph nodes. A benefit with chemotherapy was not excluded. With those findings, Dr Marin did not feel there is a definite indication for neoadjuvant chemotherapy. She then proceeded with right breast lumpectomy and right axillary lymph node dissection on 07/20/2019. Pathology showed invasive moderately differentiated mammary carcinoma with lobular differentiation. It measured 1.9 cm in greatest dimension. Focally did show high-grade features. Invasive carcinoma was present at the cranial and anterior margins. There was involvement in 8/8 axillary lymph nodes, the largest measuring 0.8 cm. Extracapsular extension was identified. She then underwent reexcision lumpectomy on 08/23/2019. There was no residual invasive carcinoma identified. Focal atypical lobular hyperplasia was present in the reexcision of the cranial margin, but the final margin was free of ALH. She has been in good general health. She has no prior medical illnesses. Prior surgeries have been limited to right salpingo-oophorectomy for removal of a benign cyst and tubal ligation. She underwent natural menopause at age 50. She does have a history of smoking 1/2 pack of cigarettes daily since age 16. INTERIM HISTORY: She began cycle 1 of Adriamycin/cyclophosphamide on 09/26/2019. She had significant fatigue following the chemotherapy, but she was able to tolerate it with acceptable toxicity. She then continued with cycle 2 on 10/11/2019, with cycle 3 on 10/25/2019, and with cycle 4 on 11/08/2019. On 11/22/2019 she began her 1st of 12 planned weekly cycles of paclitaxel. As of 12/20/2019 she had completed her 5th weekly infusion of paclitaxel. At her follow-up on 12/27/2019 her treatment was put on hold due to worsening neuropathy. She has began radiation to the right breast on 01/29/2020. She completed treatment on 03/10/2020. Total dose to the breast was 6000 cGy. She received 5000 cGy to the supraclavicular region. On 03/13/2020 she began adjuvant hormonal therapy with anastrozole 1 mg daily. Mrs Melendez is here today for three month followup. She states she stopped the exemestane after 2 to 3 days of strting to taking it because she started feeling weak and was having the dizzy headed spells again. She states she only took them 3 or 4 days before she had problems. She has med them. She has. denied any alcohol use. She denies any bowel or bladder changes. She denies fever or chills. Overal she is doing well. Her ECOG is 0. Past Medical History: She has had no prior medical illnesses. Past Surgical History: Right salpingo-oopherectomy - cyst removal Tubal ligation Port removal dr. careron in [address] carreon in 2018 Lumpectomy right breast in 2019 Ultrasound directed biopsy of right breast mass and right axillary lymph node in 2019 Allergies: Augmentin Medications: Acetaminophen 1 - 2 Capsule (of 325 mg) Oral daily PRN Ibuprofen 4 Tablet (of 200 mg) Oral PRN Family History: Ms. Melendez's mother is alive. Ms. Melendez's father at age 75: pancreatic cancer. Ms. Melendez has 1 brother who is alive. She has 5 sisters: 5 alive. Father of pancreatic cancer at age 75. Mother is still living and in good health at age 87. One brother and 5 sisters also are in good health. 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 She is a daily smoker who has smoked 0.5 packs/day for 38 years. She has no history of drinking. She has indicated exposure to the following products: cigarettes. Ms. Melendez reports the following support systems: lives with spouse, significant other, family, or friends, lives in own house, supportive family/friends willing to assist with needs, and adequate transportation available for expected visits. Her diet consists of regular meals. She indicates her activity level as: light exercise. 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 She has history of smoking 1/2 pack of cigarettes daily since age 16. She does not drink alcohol. Review Of Symptoms: Constitutional Denies fevers, chills, night sweats, excessive fatigue or weight loss. Allergic/Immunologic No reactions. Eyes Spells of wavy vision/dizzy headed like feels really weak and generally has to lay down with these spells. No amaurosis. states sometimes vision seems like it may have some double vision but not frequent. ENMT Denies changes in hearing, sore throat, difficulty or changes in swallowing ability, and/or sinus drainage. She states her mouth feels dry all the time despite drinking 3-4 containers (32 ounces) of water daily. Hematologic/Lymphatic Denies easy bruising or bleeding. The patient denies any tender or palpable lymph nodes. Respiratory Denies dyspnea on exertion, chest pain, or hemoptysis. Denies orthopnea. Cardiovascular Denies anginal chest pain, palpitations or orthopnea. Gastrointestinal Denies nausea, vomiting with chemotherapy. Denies recurrent diarrhea. She denies any GI bleeding, or constipation. Denies change in bowel habits and/or stool color or early satiety.. Genitourinary (F) No hematuria, hesitancy, incontinence, vaginal bleeding, discharge or other problems with urination. Musculoskeletal Denies joint pain, swelling or redness. No decreased range of motion. Integumentary Denies chronic rashes, inflammation, ulcerations or skin changes. Neurologic Denies headache, blurred vision, and no areas of focal weakness or numbness. Normal gait. No sensory problems. Psychiatric Denies insomnia, depression, suki or mood swings. Vital Signs: Performed on Jun 12, 2020 10:13 Height - 65.00 in Weight - 175.0 lbs Temperature - 97.1 F Pulse - 88 Respiration - 19 BP - 104/65 mm(hg) O2 Sat - 98 % Pain - 0 Performed on Jun 12, 2020 10:13 BMI - 29.122 kg/m2 (HIGH) Performed on Jun 12, 2020 09:15 Height - 65.00 in Weight - 175.0 lbs (HIGH) BSA - 1.87 sq.m BMI - 29.12 Temperature - 97.1 F (LOW) Pulse - 88 /min Respiration - 19 /min BP - 104/65 mm(hg) O2 Sat - 98 % Pain - 0,0 - Fully active, able to carry on all predisease activities without restrictions. (ECOG) Physical Examination: Constitutional Alert, oriented, no acute distress. Skin pink, warm and dry. Head Normocephalic; atraumatic. Eyes Conjunctivae and sclerae are clear and without icterus. Pupils are reactive and equal. Neck Supple without masses or thyromegaly. No jugular venous distension. Hematologic/Lymphatic No petechiae or purpura. No tender or palpable lymph nodes in the cervical or supraclavicular areas. Respiratory Lungs are clear to auscultation without rhonchi or wheezing. Cardiovascular Regular rate and rhythm of heart without murmurs,clicks, gallops or rubs. Abdomen Non-tender, non-distended, no masses, ascites. Back/Spine Non-tender to palpation. Extremities No visible deformities, no cyanosis, clubbing or edema. Musculoskeletal No tenderness or swelling, normal range of motion without obvious weakness. Integumentary No rashes or lesions. Neurologic No sensory or motor deficits, normal cerebellar function, normal gait. Psychiatric Alert and oriented times three. Coherent speech. Verbalizes understanding of our discussions today. Laboratory:Test performed on Jun 12, 2020 10:50 Sodium 138 mmol/L TSH 2.67 uIU/mL Potassium 4.1 mmol/L Chloride 102 mmol/L CO2 29 mmol/L Anion Gap 11.1 BUN 9 mg/dL Creatinine 0.8 mg/dL Cr Clearance (Est) 106.0400 mL/min eGFR 74.7 mL/min Glucose 96 mg/dL Calcium 9.4 mg/dL Protein, Total 7.4 g/dL Albumin 4.5 g/dL Globulin 2.9 g/dL Bilirubin, Total 0.3 mg/dL ALT (SGPT) 12 U/L AST (SGOT) 12 U/L Alkaline Phosphatase 76 IU/L WBC 6.7 10 3/uL RBC 4.37 10 6/uL HGB 13.9 g/dL HCT 43.9 % MCV 100.5 fL MCH 31.8 pg MCHC 31.7 g/dL RDW 13.0 % Platelet Count 315 10 3/cmm MPV 9.8 fL Neutrophils 4.22 10 3/uL Lymphocytes 1.4 10 3/uL Monocytes 0.8 10 3/uL Eosinophils 0.2 10 3/uL Basophils 0.0 10 3/uL Neutrophil % 62.9 % Lymphocyte % 21.5 % Monocyte % 12.2 % Eosinophil % 2.5 % Basophils % 0.6 % NRBC % 0 % Test performed on Dec 26, 2019 10:33 Vitamin B12 323 pg/mL Impression: 1. Patient with grade 2 invasive ductal carcinoma of the right breast, stage IIB (T1c, pN2a, M0), ER/TN positive and HER-2/matias negative. 2. She underwent ultrasound directed biopsy of right breast mass and right axillary lymph node on 04/26/2019. Her Oncotype DX showed a recurrence score of 19, corresponding to a recurrence risk of 16% with hormonal therapy, assuming 1-3 positive lymph nodes. A benefit with chemotherapy was not excluded. With those findings, it was felt there was a definite indication for neoadjuvant chemotherapy. 3. She underwent right breast lumpectomy with axillary lymph node dissection on 07/20/2019 followed by reexcision lumpectomy with final margins negative. She was given adjuvant chemotherapy with dose dense Adriamycin/cyclophosphamide followed by weekly Taxol. She completed 4 cycles of Adriamycin/cyclophosphamide from 09/26/2019 thru 11/08/2019. She had significant fatigue with it, but she otherwise tolerated it well. She then began her 1st of 12 planned weekly cycles of paclitaxel on 11/22/2019. As of 12/20/2019 she had completed her 5th weekly infusion of paclitaxel. Her treatment was then put on hold due to worsening neuropathy. She then underwent radiation to the right breast/supraclavicular region. She completed treatment on 03/10/2020. The total dose to the breast was 6000 cGy. She received 5000 cGy to the supraclavicular region. She tolerated the treatment well. On 03/13/2020 she began adjuvant hormonal therapy with anastrozole 1 mg daily. She stopped taking it a few days ago due to multiple side effects, the most significant being vertigo and fatigue. She is feeling better now. She also does complain of having significant night sweating, which was assumed to be hormone related. Dr Marin had her change to exemestane in March 2020. She states she took 2-3 days and had the same symptoms as with the anastrozole, so she stopped it over 2 months ago. She denies any medications currently. Plan: 1. Remain off exemestane 25 mg daily. 2. She is not taking the venlafaxine 35 mg at bedtime for the hot flashes. 3. Recent ear infection treated with antibiotics. Ear pain resolved. Vision spells were present prior to the ear infection. 4. I requested CBC, CMP, TSH, Hgb A1c to be drawn today. 5. I also requested an MRI of the head with and without contrast for evaulation of vision changes, headaches, sudden onset of fatigue and near syncope in a a 54 year lady with a history of breast cancer. 6. We will call her with labs results and MRI schedule when that is available. 7. She is scheduled for followup mammogram and appointment with Dr Jones on 06/24/2020. 8. Mrs Melendez was instructed to present to the ER if she feels the symptoms we discussed today worsen or if she has any syncope. She verbalized understanding. Signed By: Helen Rendon-, AOCNP Jeferson Dow MD <<Signature on File>>
[2020-06-12 15:45] LABS: Estmated Average Glucose 126
== END 2020-06-12 09:04 | disposition home or self-care (01) ==
LOC: ONCMED 09:05
PROVIDERS: Absent Provider Radiology Radiation Oncology; PCP Family Medicine; Visit Provider Nurse Practitioner
DX: C50.111 Malignant neoplasm of central portion of right female breast (principal); Z17.0 Estrogen receptor positive status [ER+]; H53.9 Unspecified visual disturbance; R51 Headache; R53.83 Other fatigue; R55 Syncope and collapse; F17.210 Nicotine dependence, cigarettes, uncomplicated; R42 Dizziness and giddiness; T45.1X5A Adverse effect of antineoplastic and immunosuppressive drugs, initial encounter; Z92.21 Personal history of antineoplastic chemotherapy; Z92.3 Personal history of irradiation; Z92.23 Personal history of estrogen therapy
CPT/HCPCS: 36415; 80053; 83036; 84443; 85025; 99214

== ENCOUNTER 2020-06-26 07:56 | Outpatient (CLI) | payer BC, SELFPAY ==
--- NOTE | 2020-06-26 08:01 | MR_ITS ---
WS: [id number] MRI BRAIN WITH AND WITHOUT CONTRAST HISTORY: Dizziness; vision CHANGES/WAVY Vision; headaches 2 MOS, history of breast cancer. COMPARISON: 06/16/2017 TECHNIQUE: Multiplanar imaging performed through the brain with Prohance 15 ml's IV. No acute infarcts are seen. Church-white matter differentiation is well preserved. There are a few scat tered subcortical white matter lesions which are nonspecific and likely related to microvascular isch emic disease. No significant progression since the prior study. No susceptibility artifacts or prior lacunar infarcts. Ventricles and extra-axial spaces are normal. Clivus and pituitary gland are normal. No mass or mass effect upon the optic chiasm. Visualized posterior fossa and brainstem are also normal. Postcontrast images are negative for masses or vascular malformations. Dural venous sinuses are normal. Paranasal sinuses: Well aerated with no significant disease. Mastoid air cells: Normal. Calvarium and scalp: Normal. MR/MR head wo/w con [id number] IMPRESSION: 1. No enhancing masses or edema. 2. No mass or mass effect upon the optic chiasm or optic radiations. 3. No cerebellopontine angle mass. 4. Mild chronic microvascular ischemic disease is stable since 2017.
== END 2020-06-26 07:57 | disposition home or self-care (01) ==
LOC: ONCMED 07:59
PROVIDERS: PCP Family Medicine; Visit Provider Nurse Practitioner
DX: R42 Dizziness and giddiness (principal); H53.8 Other visual disturbances; R51 Headache; Z85.3 Personal history of malignant neoplasm of breast
CPT/HCPCS: 70553; A9579

== ENCOUNTER 2020-08-04 11:44 | Outpatient (CLI) | payer BC, SELFPAY ==
--- NOTE | 2020-08-10 21:27 | ONC FU_ITS ---
[facility] Patient Note Patient: Nola Melendez Unit #: [id number]: 1965 Dictated By: Helen RendonDate of Visit: Aug 04, 2020 Onc MED Follow-Up/Prog Note Chief Complaint: Breast cancer. History of Present Illness: Mrs Melendez is a 54 year-old woman with grade 2 invasive ductal carcinoma of the right breast, stage IIB (T1c, pN2a, M0), ER/IA positive and HER-2/matias negative. She had presented with an abnormal screening mammogram. The study, from 03/15/2019, showed a suspected spiculated mass with distortion and possible skin deformity in the deep midportion of the right breast centrally. The visualized lower x-ray lymph nodes appeared somewhat more plump or mildly enlarged as well. She had further evaluation with diagnostic mammogram and right breast ultrasound on 04/09/2019. The mammogram showed an irregular mass in the central to inferior right breast measuring approximately 2 cm. Ultrasound showed irregular hypoechoic mass within the central right breast measuring 1.5 x 2.0 x 1.6 cm. The margins were indistinct and there was posterior acoustic shadowing, highly suggestive of malignancy. The right axilla demonstrated at least 2 cortically thickened lymph nodes. She underwent ultrasound guided biopsy of the breast mass and of a right axillary lymph node on 04/26/2019. Pathology on the breast lesion showed grade 2 invasive ductal carcinoma which was ER positive at 94% and IA positive at 74%. The tumor was negative for overexpression of HER-2/matias, 1+ by IHC. The axillary lymph node was positive for metastatic ductal carcinoma with the size of the tumor measuring at least 7 mm. There was no extracapsular extension. The breast prognostic profile on the axillary lymph node showed ER positive at 95% and IA positive at 92%. HER-2/matias was equivocal by IHC (2+), but negative by FISH with amplification ratio 1.06 and 2.1 HER2 signals per cell. Dr Marin had seen her initially on 05/28/2019. At that point, he had recommended further evaluation with Oncotype DX. It showed a recurrence score of 19, corresponding to a recurrence risk of 16% with hormonal therapy, assuming 1-3 positive lymph nodes. A benefit with chemotherapy was not excluded. With those findings, Dr Marin did not feel there is a definite indication for neoadjuvant chemotherapy. She then proceeded with right breast lumpectomy and right axillary lymph node dissection on 07/20/2019. Pathology showed invasive moderately differentiated mammary carcinoma with lobular differentiation. It measured 1.9 cm in greatest dimension. Focally did show high-grade features. Invasive carcinoma was present at the cranial and anterior margins. There was involvement in 8/8 axillary lymph nodes, the largest measuring 0.8 cm. Extracapsular extension was identified. She then underwent reexcision lumpectomy on 08/23/2019. There was no residual invasive carcinoma identified. Focal atypical lobular hyperplasia was present in the reexcision of the cranial margin, but the final margin was free of ALH. She has been in good general health. She has no prior medical illnesses. Prior surgeries have been limited to right salpingo-oophorectomy for removal of a benign cyst and tubal ligation. She underwent natural menopause at age 50. She does have a history of smoking 1/2 pack of cigarettes daily since age 16. INTERIM HISTORY: She began cycle 1 of Adriamycin/cyclophosphamide on 09/26/2019. She had significant fatigue following the chemotherapy, but she was able to tolerate it with acceptable toxicity. She then continued with cycle 2 on 10/11/2019, with cycle 3 on 10/25/2019, and with cycle 4 on 11/08/2019. On 11/22/2019 she began her 1st of 12 planned weekly cycles of paclitaxel. As of 12/20/2019 she had completed her 5th weekly infusion of paclitaxel. At her follow-up on 12/27/2019 her treatment was put on hold due to worsening neuropathy. She has began radiation to the right breast on 01/29/2020. She completed treatment on 03/10/2020. Total dose to the breast was 6000 cGy. She received 5000 cGy to the supraclavicular region. On 03/13/2020 she began adjuvant hormonal therapy with anastrozole 1 mg daily. Mrs Melendez is here today for followup. She states she stopped the exemestane after 2 to 3 days of strting to taking it because she started feeling weak and was having the dizzy headed spells again. She states she only took them 3 or 4 days before she had problems. She had an MRI of the brain with and without contrast for evaluation of dizziness on 06/26/2020. There were no enhancing masses or edema. There was no mass effective on the optical chiasm or optical radiations. There were mild chronic microvascular ischemic disease is stable since 2017. She continues to have dizzy spells. She states that she is began having some eye twitching . She states that comes at random. She cannot find any particular trigger. She denies any seizure like activity except her states that he catches her staring off into space sometimes . He states that he will talk to her and after a couple of minutes she will respond to him. She does not recall the spells. She denies any new headaches or vision changes. She states that really has not had headaches other than just the dizziness and eye twitching. She denies any problems with her blood pressure. She has no known glucose problems. She has no known thyroid problems. She states the dizziness discomfort comes and goes. She has not had any syncope with that but does feel pretty lightheaded at times. She has had no one-sided weakness or numbness. She is had no speech changes or deficits. She remains off the hormonal therapy. She denies any new pain. Her appetite is good. Energy is borderline due to the dizziness. She denies nausea or vomiting. She denies any direct known COVID exposure. She has had no known COVID symptoms. Her ECOG is 1. Past Medical History: She has had no prior medical illnesses. Past Surgical History: Right salpingo-oopherectomy - cyst removal Tubal ligation Port removal dr. carreon in [address] carreon in 2018 Lumpectomy right breast in 2018 Ultrasound directed biopsy of right breast mass and right axillary lymph node in 2019 Allergies: Augmentin Medications: Acetaminophen 1 - 2 Capsule (of 325 mg) Oral daily PRN Ibuprofen 4 Tablet (of 200 mg) Oral PRN Family History: Ms. Melendez's mother is alive. Ms. Melendez's father at age 75: pancreatic cancer. Ms. Melendez has 1 brother who is alive. She has 5 sisters: 5 alive. Father of pancreatic cancer at age 75. Mother is still living and in good health at age 87. One brother and 5 sisters also are in good health. Social History: Ms. 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 She is a daily smoker who has smoked 0.5 packs/day for 38 years. She has no history of drinking. She has indicated exposure to the following products: cigarettes. Ms. Melendez reports the following support systems: lives with spouse, significant other, family, or friends, lives in own house, supportive family/friends willing to assist with needs, and adequate transportation available for expected visits. Her diet consists of regular meals. She indicates her activity level as: light exercise. 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. She has history of smoking 1/2 pack of cigarettes daily since age 16. She does not drink alcohol. Review Of Symptoms: Constitutional Denies fevers, chills, night sweats, excessive fatigue or weight loss. Allergic/Immunologic No reactions. Eyes Spells of wavy vision/dizzy headed like feels really weak and generally has to lay down with these spells. No amaurosis. states sometimes vision seems like it may have some double vision but not frequent. Now has eye twitching at random times . states he sees her staring off into space sometimes. She does not recall these episodes. ENMT Denies changes in hearing, sore throat, difficulty or changes in swallowing ability, and/or sinus drainage. Hematologic/Lymphatic Denies easy bruising or bleeding. The patient denies any tender or palpable lymph nodes. Respiratory Denies dyspnea on exertion, chest pain, or hemoptysis. Denies orthopnea. Cardiovascular Denies anginal chest pain, palpitations or orthopnea. Gastrointestinal Denies nausea, vomiting with chemotherapy. Denies recurrent diarrhea. She denies any GI bleeding, or constipation. Denies change in bowel habits and/or stool color or early satiety. Genitourinary (F) No hematuria, hesitancy, incontinence, vaginal bleeding, discharge or other problems with urination. Musculoskeletal Denies joint pain, swelling or redness. No decreased range of motion. Integumentary Denies chronic rashes, inflammation, ulcerations or skin changes. Neurologic Denies headache, blurred vision, and no areas of focal weakness or numbness. Normal gait. No sensory problems. Dizzy spells and staring off into space . See above. Psychiatric Denies insomnia, depression, suki or mood swings. Vital Signs: Performed on Aug 04, 2020 11:54 Height - 65.00 in Weight - 175.4 lbs (HIGH) BSA - 1.87 sq.m BMI - 29.19 Temperature - 97.8 F (LOW) Pulse - 77 /min Respiration - 18 /min BP - 101/66 mm(hg) O2 Sat - 99 % Pain - 0,1 - No physically strenuous activity, but ambulatory and able to carry out light or sedentary work (e.g. office work, light house work). (ECOG) Physical Examination: Constitutional Alert, oriented, no acute distress. Skin pink, warm and dry. Head Normocephalic; atraumatic. Eyes Conjunctivae and sclerae are clear and without icterus. Pupils are reactive and equal. Neck Supple without masses or thyromegaly. No jugular venous distension. Hematologic/Lymphatic No petechiae or purpura. No tender or palpable lymph nodes in the cervical or supraclavicular areas. Respiratory Lungs are clear to auscultation without rhonchi or wheezing. Cardiovascular Regular rate and rhythm of heart without murmurs,clicks, gallops or rubs. Abdomen Non-tender, non-distended, no masses, ascites. Back/Spine Non-tender to palpation. Extremities No visible deformities, no cyanosis, clubbing or edema. Musculoskeletal No tenderness or swelling, normal range of motion without obvious weakness. Integumentary No rashes or lesions. Neurologic No sensory or motor deficits, normal cerebellar function, normal gait. Psychiatric Alert and oriented times three. Coherent speech. Verbalizes understanding of our discussions today. Laboratory:Test performed on Jun 12, 2020 10:50 Sodium 138 mmol/L TSH 2.67 uIU/mL Potassium 4.1 mmol/L Chloride 102 mmol/L CO2 29 mmol/L Anion Gap 11.1 BUN 9 mg/dL Creatinine 0.8 mg/dL Cr Clearance (Est) 106.0400 mL/min eGFR 74.7 mL/min Glucose 96 mg/dL Calcium 9.4 mg/dL Protein, Total 7.4 g/dL Albumin 4.5 g/dL Globulin 2.9 g/dL Bilirubin, Total 0.3 mg/dL ALT (SGPT) 12 U/L AST (SGOT) 12 U/L Alkaline Phosphatase 76 IU/L WBC 6.7 10 3/uL RBC 4.37 10 6/uL HGB 13.9 g/dL HCT 43.9 % MCV 100.5 fL MCH 31.8 pg MCHC 31.7 g/dL RDW 13.0 % Platelet Count 315 10 3/cmm MPV 9.8 fL Neutrophils 4.22 10 3/uL Lymphocytes 1.4 10 3/uL Monocytes 0.8 10 3/uL Eosinophils 0.2 10 3/uL Basophils 0.0 10 3/uL Neutrophil % 62.9 % Lymphocyte % 21.5 % Monocyte % 12.2 % Eosinophil % 2.5 % Basophils % 0.6 % NRBC % 0 % Impression: 1. Patient with grade 2 invasive ductal carcinoma of the right breast, stage IIB (T1c, pN2a, M0), ER/IA positive and HER-2/matias negative. 2. She underwent ultrasound directed biopsy of right breast mass and right axillary lymph node on 04/26/2019. Her Oncotype DX showed a recurrence score of 19, corresponding to a recurrence risk of 16% with hormonal therapy, assuming 1-3 positive lymph nodes. A benefit with chemotherapy was not excluded. With those findings, it was felt there was a definite indication for neoadjuvant chemotherapy. 3. She underwent right breast lumpectomy with axillary lymph node dissection on 07/20/2019 followed by reexcision lumpectomy with final margins negative. She was given adjuvant chemotherapy with dose dense Adriamycin/cyclophosphamide followed by weekly Taxol. She completed 4 cycles of Adriamycin/cyclophosphamide from 09/26/2019 thru 11/08/2019. She had significant fatigue with it, but she otherwise tolerated it well. She then began her 1st of 12 planned weekly cycles of paclitaxel on 11/22/2019. As of 12/20/2019 she had completed her 5th weekly infusion of paclitaxel. Her treatment was then put on hold due to worsening neuropathy. She then underwent radiation to the right breast/supraclavicular region. She completed treatment on 03/10/2020. The total dose to the breast was 6000 cGy. She received 5000 cGy to the supraclavicular region. She tolerated the treatment well. On 03/13/2020 she began adjuvant hormonal therapy with anastrozole 1 mg daily. She stopped taking it a few days ago due to multiple side effects, the most significant being vertigo and fatigue. She is feeling better now. She also does complain of having significant night sweating, which was assumed to be hormone related. Dr Marin had her change to exemestane in March 2020. She states she took 2-3 days and had the same symptoms as with the anastrozole, so she stopped it over 2 months ago. She denies any medications currently. Plan: 1. Remain off exemestane 25 mg daily. 2. She is not taking the venlafaxine 35 mg at bedtime for the hot flashes. 3. Levaquin 500 mg po daily or right ear infection that recurred after recent antibiotic use. 4. Reviewed labs from June 12, 2020-no abnormalities-Hgb 6.0, TSH 2.67 and HGB was 13.9. 5. Neurology consult for persistent dizziness with new complaints of eyes twitching and staring off into space -both of which are becoming more frequent. 6. MRI of the brain with and without contrast on 06/26/2020 did not report any masses or edema. She has mild chronic microvascular ischemic disease but it was reported as stavle since 2017. TSH, HGB and HGB A1C were all normal with last lab draw on 06/12/2020. 7. She had followup mammogram and appointment with Dr Jones on 06/24/2020. 8. Mrs Melendez was instructed to present to the ER if she feels the symptoms we discussed today worsen or if she has any syncope, TIA symptoms or severe headaches or any concerns arise. She verbalized understanding. Signed By: Helen Rendon-TERESSA, AOFRANCOP Gulshan Marin MD <<Signature on File>>
== END 2020-08-04 11:45 | disposition home or self-care (01) ==
LOC: ONCMED 11:46
PROVIDERS: PCP Family Medicine; Visit Provider Nurse Practitioner
DX: C50.111 Malignant neoplasm of central portion of right female breast (principal); Z17.0 Estrogen receptor positive status [ER+]; Z92.21 Personal history of antineoplastic chemotherapy; Z92.3 Personal history of irradiation; Z79.818 Long term (current) use of other agents affecting estrogen receptors and estrogen levels
CPT/HCPCS: 99214

== ENCOUNTER → 2020-10-28 08:30 | Outpatient (BNVA) | payer BC, SELFPAY | PROVIDERS: PCP Family Medicine; Referring Provider Nurse Practitioner; Visit Provider Specialist | DX: H55.09 Other forms of nystagmus (principal); R56.9 Unspecified convulsions; F17.210 Nicotine dependence, cigarettes, uncomplicated | CPT/HCPCS: 99205 ==

== ENCOUNTER 2020-11-17 08:33 | Outpatient (CLI) | payer BC, SELFPAY ==
--- NOTE | 2020-11-17 08:45 | MR_ITS ---
WS: [id number] MRI HEAD WITHOUT CONTRAST TECHNIQUE: Sagittal T1, T2 axial, T2 axial FLAIR, axial and coronal T1 images, axial susceptibility w eighted imaging, axial diffusion weighted images, and coronal T2 images were obtained. CLINICAL INFORMATION: G40.909 - Epilepsy, unspecified, not intractable, without status epilepticus COMPARISON: MRI June 26, 2028 MRI [id number] FINDINGS: No evidence of restricted diffusion to suggest acute ischemia. Ventricular system and basal cisterns are patent. Mild small vessel changes with mild parenchymal volume loss. Small vessel changes unchang ed since June 26, 2020. No hemosiderin on susceptibly weighted images. Normal posterior fossa. Norm al vascular flow voids at the skull base. No extra axial fluid collections. No evidence of mass or ma ss effect. Paranasal sinuses and mastoid air cells well aerated. Normal optic chiasm and pituitary infundibulum. Temporal lobes and hippocampal formations are normal in appearance. No evidence of mesial temporal sclerosis. No signal abnormalities in the mesial tempor al lobe. MR/MR head wo con* [id number] IMPRESSION: 1. No evidence of restricted diffusion to suggest acute ischemia. 2. Mild small vessel changes are stable from previous. 3. Temporal lobes and hippocampal formations are normal in appearance. No evid ence of mesial temporal sclerosis. 4. Normal optic chiasm and pituitary infundibulum. 5. No hemosiderin on susceptibly weighted images. 6. No other significant findings.
== END 2020-11-17 08:34 | disposition home or self-care (01) ==
LOC: RADSHAW 08:36
PROVIDERS: PCP Family Medicine; Visit Provider Specialist
DX: G40.909 Epilepsy, unspecified, not intractable, without status epilepticus (principal)
CPT/HCPCS: 70551

== ENCOUNTER 2020-11-25 14:01 | Outpatient (CLI) | payer BC, SELFPAY ==
[2020-11-29 16:49] LABS: Acetylcholine Recept Modulatin 20
== END 2020-11-25 14:02 | disposition home or self-care (01) ==
PROVIDERS: PCP Family Medicine; Visit Provider Specialist
DX: H55.09 Other forms of nystagmus (principal)
CPT/HCPCS: 83516; 83520

== ENCOUNTER → 2020-12-16 12:11 | Outpatient (BNVA) | payer BC, SELFPAY | PROVIDERS: PCP Family Medicine; Visit Provider Specialist | DX: H55.09 Other forms of nystagmus (principal); C50.919 Malignant neoplasm of unspecified site of unspecified female breast; F17.210 Nicotine dependence, cigarettes, uncomplicated | CPT/HCPCS: 99214 ==

== ENCOUNTER 2021-01-29 08:58 | Outpatient (CLI) | payer BC, SELFPAY ==
--- NOTE | 2021-02-01 12:55 | ONC FU_ITS ---
Dr. Marin Patient Follow-Up Note Patient: Nola Melendez Unit #: [id number]: 1965 Dicatated By: Gulshan Marin M.D.Date of Visit:Jan 29, 2021 Onc Med Follow-up/Prog Note Chief Complaint: Breast cancer. History of Present Illness: This is a 55 year-old woman with grade 2 invasive ductal carcinoma of the right breast, stage IIB (T1c, pN2a, M0), ER/UT positive and HER-2/matias negative. She had presented with an abnormal screening mammogram. The study, from 03/15/2019, showed a suspected spiculated mass with distortion and possible skin deformity in the deep midportion of the right breast centrally. The visualized lower x-ray lymph nodes appeared somewhat more plump or mildly enlarged as well. She had further evaluation with diagnostic mammogram and right breast ultrasound on 04/09/2019. The mammogram showed an irregular mass in the central to inferior right breast measuring approximately 2 cm. Ultrasound showed irregular hypoechoic mass within the central right breast measuring 1.5 x 2.0 x 1.6 cm. The margins were indistinct and there was posterior acoustic shadowing, highly suggestive of malignancy. The right axilla demonstrated at least 2 cortically thickened lymph nodes. She underwent ultrasound guided biopsy of the breast mass and of a right axillary lymph node on 04/26/2019. Pathology on the breast lesion showed grade 2 invasive ductal carcinoma which was ER positive at 94% and UT positive at 74%. The tumor was negative for overexpression of HER-2/matias, 1+ by IHC. The axillary lymph node was positive for metastatic ductal carcinoma with the size of the tumor measuring at least 7 mm. There was no extracapsular extension. The breast prognostic profile on the axillary lymph node showed ER positive at 95% and UT positive at 92%. HER-2/matias was equivocal by IHC (2+), but negative by FISH with amplification ratio 1.06 and 2.1 HER2 signals per cell. I had seen her initially on 05/28/2019. At that point I had recommended further evaluation with Oncotype DX. It showed a recurrence score of 19, corresponding to a recurrence risk of 16% with hormonal therapy, assuming 1-3 positive lymph nodes. A benefit with chemotherapy was not excluded. With those findings, I did not feel there is a definite indication for neoadjuvant chemotherapy. She then proceeded with right breast lumpectomy and right axillary lymph node dissection on 07/20/2019. Pathology showed invasive moderately differentiated mammary carcinoma with lobular differentiation. It measured 1.9 cm in greatest dimension. Focally did show high-grade features. Invasive carcinoma was present at the cranial and anterior margins. There was involvement in 8/8 axillary lymph nodes, the largest measuring 0.8 cm. Extracapsular extension was identified. She then underwent reexcision lumpectomy on 08/23/2019. There was no residual invasive carcinoma identified. Focal atypical lobular hyperplasia was present in the reexcision of the cranial margin, but the final margin was free of ALH. She began cycle 1 of Adriamycin/cyclophosphamide on 09/26/2019. She had significant fatigue following the chemotherapy, but she was able to tolerate it with acceptable toxicity. She then continued with cycle 2 on 10/11/2019, with cycle 3 on 10/25/2019, and with cycle 4 on 11/08/2019. On 11/22/2019 she began her 1st of 12 planned weekly cycles of paclitaxel. As of 12/20/2019 she had completed her 5th weekly infusion of paclitaxel. At her follow-up on 12/27/2019 her treatment was put on hold due to worsening neuropathy. She has began radiation to the right breast on 01/29/2020. She completed treatment on 03/10/2020. Total dose to the breast was 6000 cGy. She received 5000 cGy to the supraclavicular region. On 03/13/2020 she began adjuvant hormonal therapy with anastrozole 1 mg daily. She stopped taking it within 2 weeks due to multiple side effects, the most significant being vertigo and fatigue. On 04/02/2020 she began further adjuvant hormonal therapy with exemestane 25 mg daily. She has been in good general health. She has no other ongoing medical illnesses. Prior surgeries have been limited to right salpingo-oophorectomy for removal of a benign cyst and tubal ligation. She underwent natural menopause at age 50. She does have a history of smoking 1/2 pack of cigarettes daily since age 16. INTERIM HISTORY: She took exemestane for only a short time and then stopped, she has side effects similar to those she had experienced with anastrozole. She is seen for a follow-up visit. She has been feeling pretty good generally. She has had good energy and activity tolerance. ECOG score is 0. She has good appetite. She has not had fever. She is having hot flashes and sweating. She has a little bit of cough and she is still smoking 1/2 to 1 pack of cigarettes daily. She does not complain of shortness of breath or chest pain. She has no GI or complaints. She does have some musculoskeletal pain, which comes and goes. The most significant is in the lower back. She has just occasional headache. She currently does not complain of dizziness. She has some residual numbness/tingling in her hands and feet. Medications: Acetaminophen 1 - 2 Capsule (of 325 mg) Oral daily PRN, Ibuprofen 4 Tablet (of 200 mg) Oral PRN Allergies: Augmentin Vital Signs: Performed on Jan 29, 2021 09:10 Height - 65.00 in Weight - 175.8 lbs (HIGH) BSA - 1.87 sq.m BMI - 29.25 Temperature - 97.4 F (LOW) Pulse - 71 /min Respiration - 18 /min BP - 100/67 mm(hg) O2 Sat - 96 % Pain - 0 Physical Examination: Constitutional - She looks good generally, Eyes - Sclerae nonicteric. Conjunctivae clear, ENMT - No lesions noted in the oral cavity, Hematologic/Lymphatic - No cervical, clavicular, or axillary adenopathy, Respiratory - Lungs are clear with some decrease in air movement bilaterally, Cardiovascular - Heart rhythm is regular. There is no murmur, gallop, or rub noted, Abdomen - Soft. Liver and spleen are not enlarged. There is no abdominal mass or ascites noted and there is no inguinal adenopathy, Extremities - No edema, Neurologic - No focal neurologic deficits noted. Problem List: 1. Grade 2 invasive ductal carcinoma of the right breast, stage IIB (T1c, pN2a, M0), ER/UT positive and HER-2/matias negative. She underwent ultrasound directed biopsy of right breast mass and right axillary lymph node on 04/26/2019. Her Oncotype DX showed a recurrence score of 19, corresponding to a recurrence risk of 16% with hormonal therapy, assuming 1-3 positive lymph nodes. A benefit with chemotherapy was not excluded. 2. On her genetic screening she was found to be BRCA negative. Problems Addressed with this Encounter and Plan: Patient with grade 2 invasive ductal carcinoma of the right breast, stage IIB (T1c, pN2a, M0), ER/UT positive and HER-2/matias negative. She underwent ultrasound directed biopsy of right breast mass and right axillary lymph node on 04/26/2019. Her Oncotype DX showed a recurrence score of 19, corresponding to a recurrence risk of 16% with hormonal therapy, assuming 1-3 positive lymph nodes. A benefit with chemotherapy was not excluded. She underwent right breast lumpectomy with axillary lymph node dissection on 07/20/2019 followed by reexcision lumpectomy with final margins negative. She was given adjuvant chemotherapy with dose dense Adriamycin/cyclophosphamide followed by weekly Taxol. She completed 4 cycles of Adriamycin/cyclophosphamide from 09/26/2019 thru 11/08/2019. She had significant fatigue with it, but she otherwise tolerated it well. She then began her 1st of 12 planned weekly cycles of paclitaxel on 11/22/2019. As of 12/20/2019 she had completed her 5th weekly infusion of paclitaxel. Her treatment was stopped at that point due to worsening neuropathy. She then underwent radiation to the right breast/supraclavicular region. She completed treatment on 03/10/2020. The total dose to the breast was 6000 cGy. She received 5000 cGy to the supraclavicular region. She tolerated the treatment well. On 03/13/2020 she began adjuvant hormonal therapy with anastrozole 1 mg daily. She stopped within 2 weeks due to multiple side effects, the most significant being vertigo and fatigue. On 04/02/2020 she began further adjuvant hormonal therapy with exemestane 25 mg daily. It was also stopped within a short time due to similar side effects. During follow-up she has been doing well clinically, but she has been without any further adjuvant hormonal therapy. As she is at significant risk for recurrence, she will try restarting the exemestane at 25 mg daily. If she does not tolerate it, she will have the option to try tamoxifen. I will see her in 3 months, or sooner as needed. Signed By: Gulshan Marin M.D. <<Signature on File>>
== END 2021-01-29 08:59 | disposition home or self-care (01) ==
LOC: ONCMED 09:00
PROVIDERS: PCP Family Medicine; Visit Provider Internal Medicine Medical Oncology
DX: C50.111 Malignant neoplasm of central portion of right female breast (principal); C77.3 Secondary and unspecified malignant neoplasm of axilla and upper limb lymph nodes; Z17.0 Estrogen receptor positive status [ER+]; Z92.3 Personal history of irradiation; Z92.23 Personal history of estrogen therapy; Z92.21 Personal history of antineoplastic chemotherapy; Z79.811 Long term (current) use of aromatase inhibitors
CPT/HCPCS: 99214

== ENCOUNTER 2021-05-04 13:38 | Outpatient (CLI) | payer BC, SELFPAY ==
[2021-05-04 15:29] LABS: Basophils # 0.1 10^3/uL (0.0-0.1); Basophils % 0.8 %; Eosinophils # 0.2 10^3/uL (0.0-0.8); Eosinophils % 2.9 %; Hematocrit 43.7 % (37.0-47.0); Hemoglobin 14.3 g/dL (11.5-15.3); Lymphocytes # 1.9 10^3/uL (0.8-4.8); Lymphocytes % 27.9 %; Mean Corpuscular HGB Conc 32.7 g/dL (30.0-36.0); Mean Corpuscular Hemoglobin 32.3 pg (28.0-34.0); Mean Corpuscular Volume 98.6 fL (81-99); Monocytes # 0.6 10^3/uL (0.2-0.9); Monocytes % 9.7 %; Neutrophils # 3.82 10^3/uL (1.8-7.7); Neutrophils % 57.6 %; Nucleated Red Blood Cells % 0 %; Platelet Count 290 10^3/cmm (130-400); Red Blood Count 4.43 10^6/uL (4.1-5.3); Red Cell Distribution Width 12.1 % (12.1-15.1); White Blood Count 6.6 10^3/uL (4.0-10.0)
[2021-05-04 15:55] LABS: Alanine Aminotransferase 7 U/L (0-33); Albumin Level 4.2 g/dL (3.5-5.2); Alkaline Phosphatase 74 IU/L (35-105); Aspartate Amino Transferase 11 U/L (0-32); Blood Urea Nitrogen 9 mg/dL (6-20); Calcium 9.5 mg/dL (8.5-10.5); Carbon Dioxide 25 mmol/L (22-29); Chloride 100 mmol/L (98-107); Globulin 2.6 g/dL (1.3-4.6); Glomerular Filtration Rate 103.8 mL/min (90-130); Glucose 98 mg/dL (65-115); Osmolality Calculated 281 mOsm/kg (285-295); Sodium 136 mmol/L (136-145); Total Bilirubin 0.3 mg/dL (0.15-1.2); Total Protein 6.8 g/dL (6.6-8.7)
== END 2021-05-04 13:39 | disposition home or self-care (01) ==
LOC: ONCMED 13:39
PROVIDERS: PCP Family Medicine; Visit Provider Internal Medicine Medical Oncology
DX: C50.511 Malignant neoplasm of lower-outer quadrant of right female breast (principal); Z17.0 Estrogen receptor positive status [ER+]; Z79.899 Other long term (current) drug therapy
CPT/HCPCS: 36415; 80053; 85025

== ENCOUNTER 2021-06-10 09:31 | Outpatient (CLI) | payer BC, SELFPAY ==
[2021-06-10 10:04] LABS: Basophils % 0.6 %; Eosinophils # 0.2 10^3/uL (0.0-0.8); Eosinophils % 3.5 %; Hematocrit 40.1 % (37.0-47.0); Hemoglobin 12.6 g/dL (11.5-15.3); Lymphocytes # 1.7 10^3/uL (0.8-4.8); Lymphocytes % 25.7 %; Mean Corpuscular HGB Conc 31.4 g/dL (30.0-36.0); Mean Corpuscular Hemoglobin 31.4 pg (28.0-34.0); Mean Platelet Volume 9.8 fL (7.4-10.4); Monocytes # 0.8 10^3/uL (0.2-0.9); Monocytes % 11.5 %; Neutrophils % 58.5 %; Nucleated Red Blood Cells % 0 %; Platelet Count 270 10^3/cmm (130-400); Red Blood Count 4.01 10^6/uL (4.1-5.3); Red Cell Distribution Width 12.1 % (12.1-15.1); White Blood Count 6.5 10^3/uL (4.0-10.0)
[2021-06-10 10:44] LABS: Alanine Aminotransferase 8 U/L (0-33); Albumin Level 3.9 g/dL (3.5-5.2); Alkaline Phosphatase 72 IU/L (35-105); Aspartate Amino Transferase 11 U/L (0-32); Blood Urea Nitrogen 7 mg/dL (6-20); Calcium 8.5 mg/dL (8.5-10.5); Carbon Dioxide 27 mmol/L (22-29); Chloride 105 mmol/L (98-107); Globulin 2.2 g/dL (1.3-4.6); Glomerular Filtration Rate 74.5 mL/min (90-130); Glucose 81 mg/dL (65-115); Osmolality Calculated 289 mOsm/kg (285-295); Sodium 141 mmol/L (136-145); Total Bilirubin 0.2 mg/dL (0.15-1.2); Total Protein 6.1 g/dL (6.6-8.7)
--- NOTE | 2021-06-11 06:05 | ONC FU_ITS ---
Dr. Marin Patient Follow-Up Note Patient: Nola Melendez Unit #: [id number]: 1965 Dicatated By: Gulshan Marin M.D.Date of Visit:Jun 10, 2021 Onc Med Follow-up/Prog Note Chief Complaint: Breast cancer. History of Present Illness: This is a 55 year-old woman with grade 2 invasive ductal carcinoma of the right breast, stage IIB (T1c, pN2a, M0), ER/ND positive and HER-2/matias negative. She had presented with an abnormal screening mammogram. The study, from 03/15/2019, showed a suspected spiculated mass with distortion and possible skin deformity in the deep midportion of the right breast centrally. The visualized lower x-ray lymph nodes appeared somewhat more plump or mildly enlarged as well. She had further evaluation with diagnostic mammogram and right breast ultrasound on 04/09/2019. The mammogram showed an irregular mass in the central to inferior right breast measuring approximately 2 cm. Ultrasound showed irregular hypoechoic mass within the central right breast measuring 1.5 x 2.0 x 1.6 cm. The margins were indistinct and there was posterior acoustic shadowing, highly suggestive of malignancy. The right axilla demonstrated at least 2 cortically thickened lymph nodes. She underwent ultrasound guided biopsy of the breast mass and of a right axillary lymph node on 04/26/2019. Pathology on the breast lesion showed grade 2 invasive ductal carcinoma which was ER positive at 94% and ND positive at 74%. The tumor was negative for overexpression of HER-2/matias, 1+ by IHC. The axillary lymph node was positive for metastatic ductal carcinoma with the size of the tumor measuring at least 7 mm. There was no extracapsular extension. The breast prognostic profile on the axillary lymph node showed ER positive at 95% and ND positive at 92%. HER-2/matias was equivocal by IHC (2+), but negative by FISH with amplification ratio 1.06 and 2.1 HER2 signals per cell. I had seen her initially on 05/28/2019. At that point I had recommended further evaluation with Oncotype DX. It showed a recurrence score of 19, corresponding to a recurrence risk of 16% with hormonal therapy, assuming 1-3 positive lymph nodes. A benefit with chemotherapy was not excluded. With those findings, I did not feel there is a definite indication for neoadjuvant chemotherapy. She then proceeded with right breast lumpectomy and right axillary lymph node dissection on 07/20/2019. Pathology showed invasive moderately differentiated mammary carcinoma with lobular differentiation. It measured 1.9 cm in greatest dimension. Focally did show high-grade features. Invasive carcinoma was present at the cranial and anterior margins. There was involvement in 8/8 axillary lymph nodes, the largest measuring 0.8 cm. Extracapsular extension was identified. She then underwent reexcision lumpectomy on 08/23/2019. There was no residual invasive carcinoma identified. Focal atypical lobular hyperplasia was present in the reexcision of the cranial margin, but the final margin was free of ALH. She began cycle 1 of Adriamycin/cyclophosphamide on 09/26/2019. She had significant fatigue following the chemotherapy, but she was able to tolerate it with acceptable toxicity. She then continued with cycle 2 on 10/11/2019, with cycle 3 on 10/25/2019, and with cycle 4 on 11/08/2019. On 11/22/2019 she began her 1st of 12 planned weekly cycles of paclitaxel. As of 12/20/2019 she had completed her 5th weekly infusion of paclitaxel. At her follow-up on 12/27/2019 her treatment was put on hold due to worsening neuropathy. She has began radiation to the right breast on 01/29/2020. She completed treatment on 03/10/2020. Total dose to the breast was 6000 cGy. She received 5000 cGy to the supraclavicular region. On 03/13/2020 she began adjuvant hormonal therapy with anastrozole 1 mg daily. She stopped taking it within 2 weeks due to multiple side effects, the most significant being vertigo and fatigue. On 04/02/2020 she began further adjuvant hormonal therapy with exemestane 25 mg daily. She has been in good general health. She has no other ongoing medical illnesses. Prior surgeries have been limited to right salpingo-oophorectomy for removal of a benign cyst and tubal ligation. She underwent natural menopause at age 50. She does have a history of smoking 1/2 pack of cigarettes daily since age 16. INTERIM HISTORY: She initially had stopped the exemestane after just a short time, as she has side effects similar to those she had experienced with anastrozole. She is seen for a follow-up visit. As of her follow-up visit in January, she had tried restarting the exemestane. She did experience side effects, including generalized bone pain and fatigue, but she has been able to continue taking it, though on an intermittent basis. Typically she has to stop for about a week each month. With that she continues to have some fatigue, but her activity is normal. Her ECOG score is 0. Appetite is variable. Her weight is up a couple of pounds. She has not had fever or night sweats. She does have some hot flashes, but they are not as bad now. She has some sinus drainage and cough. She does not complain of shortness of breath or chest pain. She has no GI/ complaints other than occasional heartburn. She does not complain of headache or dizziness. She has residual neuropathy in her hands and feet. Medications: Acetaminophen 1 - 2 Capsule (of 325 mg) Oral daily PRN, Ibuprofen 4 Tablet (of 200 mg) Oral PRN Allergies: Augmentin Vital Signs: Performed on Jun 10, 2021 14:54 Height - 65.00 in Weight - 177.4 lbs (HIGH) BSA - 1.88 sq.m BMI - 29.52 Temperature - 97.6 F (LOW) Pulse - 59 /min (LOW) Respiration - 18 /min BP - 110/74 mm(hg) O2 Sat - 98 % Pain - 0 Fatigue - 8 Physical Examination: Constitutional - She looks good generally, Eyes - Sclerae nonicteric. Conjunctivae clear, ENMT - No lesions noted in the oral cavity, Hematologic/Lymphatic - No cervical or clavicular adenopathy, Respiratory - Lungs are clear with some decrease in air movement bilaterally, Cardiovascular - Heart rhythm is regular. There is no murmur, gallop, or rub noted, Breasts - There is some mild induration in the right breast. There are no breast masses noted. There is no axillary adenopathy, Abdomen - Soft. Liver and spleen are not enlarged. There is no abdominal mass or ascites noted and there is no inguinal adenopathy, Extremities - No edema, Neurologic - No focal neurologic deficits noted. Lab/Imaging: Test performed on Jun 10, 2021 09:46 Sodium 141 mmol/L Potassium 4.0 mmol/L Chloride 105 mmol/L CO2 27 mmol/L Anion Gap 13.0 BUN 7 mg/dL Creatinine 0.8 mg/dL Cr Clearance (Est) 104.8000 mL/min eGFR 74.5 mL/min Glucose 81 mg/dL Osmolality - Calculated 289 mOsm/kg Calcium 8.5 mg/dL Protein, Total 6.1 g/dL Albumin 3.9 g/dL Globulin 2.2 g/dL Bilirubin, Total 0.2 mg/dL ALT (SGPT) 8 U/L AST (SGOT) 11 U/L Alkaline Phosphatase 72 IU/L WBC 6.5 10 3/uL RBC 4.01 10 6/uL HGB 12.6 g/dL HCT 40.1 % MCV 100.0 fL MCH 31.4 pg MCHC 31.4 g/dL RDW 12.1 % Platelet Count 270 10 3/cmm MPV 9.8 fL Neutrophils 3.80 10 3/uL Lymphocytes 1.7 10 3/uL Monocytes 0.8 10 3/uL Eosinophils 0.2 10 3/uL Basophils 0.0 10 3/uL Neutrophil % 58.5 % Lymphocyte % 25.7 % Monocyte % 11.5 % Eosinophil % 3.5 % Basophils % 0.6 % NRBC % 0 % Problem List: 1. Grade 2 invasive ductal carcinoma of the right breast, stage IIB (T1c, pN2a, M0), ER/ND positive and HER-2/matias negative. She underwent ultrasound directed biopsy of right breast mass and right axillary lymph node on 04/26/2019. Her Oncotype DX showed a recurrence score of 19, corresponding to a recurrence risk of 16% with hormonal therapy, assuming 1-3 positive lymph nodes. A benefit with chemotherapy was not excluded. 2. On her genetic screening she was found to be BRCA negative. Problems Addressed with this Encounter and Plan: Patient with grade 2 invasive ductal carcinoma of the right breast, stage IIB (T1c, pN2a, M0), ER/ND positive and HER-2/matias negative. She underwent ultrasound directed biopsy of right breast mass and right axillary lymph node on 04/26/2019. Her Oncotype DX showed a recurrence score of 19, corresponding to a recurrence risk of 16% with hormonal therapy, assuming 1-3 positive lymph nodes. A benefit with chemotherapy was not excluded. She underwent right breast lumpectomy with axillary lymph node dissection on 07/20/2019 followed by reexcision lumpectomy with final margins negative. She was given adjuvant chemotherapy with dose dense Adriamycin/cyclophosphamide followed by weekly Taxol. She completed 4 cycles of Adriamycin/cyclophosphamide from 09/26/2019 thru 11/08/2019. She had significant fatigue with it, but she otherwise tolerated it well. She then began her 1st of 12 planned weekly cycles of paclitaxel on 11/22/2019. As of 12/20/2019 she had completed her 5th weekly infusion of paclitaxel. Her treatment was stopped at that point due to worsening neuropathy. She then underwent radiation to the right breast/supraclavicular region. She completed treatment on 03/10/2020. The total dose to the breast was 6000 cGy. She received 5000 cGy to the supraclavicular region. She tolerated the treatment well. On 03/13/2020 she began adjuvant hormonal therapy with anastrozole 1 mg daily. She stopped within 2 weeks due to multiple side effects, the most significant being vertigo and fatigue. On 04/02/2020 she began further adjuvant hormonal therapy with exemestane 25 mg daily. It was also stopped within a short time due to similar side effects. However, as of her follow-up visit in January 2021 she restarted the exemestane. Since then she has continued to have side effects with it, mainly fatigue and generalized musculoskeletal pain, but she has been able to tolerate it, at least on an intermittent basis. Thus far there has been no evidence of recurrence of the breast cancer. At least for now she is going to continue the exemestane at 25 mg daily, as she is able to tolerate. She will be scheduled for a follow-up visit in 6 months. In the meantime, though, she is to let me know if her symptoms worsen. Signed By: Gulshan Marin M.D. <<Signature on File>>
== END 2021-06-10 09:32 | disposition home or self-care (01) ==
LOC: ONCMED 09:33
PROVIDERS: PCP Family Medicine; Visit Provider Internal Medicine Medical Oncology
DX: C50.811 Malignant neoplasm of overlapping sites of right female breast (principal); Z17.0 Estrogen receptor positive status [ER+]; Z79.811 Long term (current) use of aromatase inhibitors; Z92.21 Personal history of antineoplastic chemotherapy; Z79.899 Other long term (current) drug therapy
CPT/HCPCS: 36415; 80053; 85025; 99214

== ENCOUNTER 2021-10-14 20:49 | Emergency (ER) | payer BC, SELFPAY ==
--- NOTE | 2021-10-14 20:55 | XRR_ITS ---
PROCEDURE INFORMATION: Exam: XR Chest Exam date and time: 10/14/2021 8:55 PM Age: 56 years old Clinical indication: Cough TECHNIQUE: Imaging protocol: XR of the chest. Views: 1 view. Total images: 1 COMPARISON: CR Chest 1 [place] [id number] 06/15/2017 12:40 PM FINDINGS: Lungs: No visible active interstitial or alveolar airspace disease. Pleural spaces: Unremarkable. No pleural effusion. No pneumothorax. Heart/Mediastinum: Cardiac structures and configuration within normal limits. Bones/joints: Mild scoliotic curvature. XR/XR chest 1V portable [id number] IMPRESSION: Nonacute.
[2021-10-14 21:02] VITALS: BP 140/80; PULSE 97; RESP 18; TEMP 38.1; O2SAT 97; BMI 28.3
[2021-10-14 21:25] VITALS: BP 140/80; PULSE 97; RESP 18; TEMP 38.1; O2SAT 97
[2021-10-14 21:47] LABS: SARS Covid-2 Antigen Negative (Negative)
[2021-10-14] MEDS: acetaminophen 500 mg Tablet 1000 MG PO (22:06)
--- NOTE | 2021-10-14 22:08 | W.ED.SOB ---
HPI - SOB/Dyspnea General: Chief Complaint: Shortness of Breath/Dyspnea Stated Complaint: Covid shot 10/09-Covid Symptoms Time Seen by Provider: 10/14/21 22:08 History of Present Illness: HPI Narrative: Patient had her first COVID-19 vaccine on the third of this month. About 8 hours after vaccine patient has been running a fever and feeling weak. Patient denies any chest pain or shortness of breath. Patient reported 1 or 2 episodes of emesis. Patient denies any diarrhea or severe abdominal pain or other discomfort. Patient has a history of breast cancer and smoking addiction. Patient appears mildly unwell but not toxic. Associated symptoms: Reports fever(s) Review of Systems General: Reports: 10 or more systems reviewed and unremarkable except in HPI and below Const: Reports: fever(s) and fatigue PFSH ED PFSH: Family History Father Cancer Pancreatic Social History Smoking and tobacco status: current every day smoker cigarettes Packs smoked per day: 0.5 Years cigarettes smoked: 38 Second hand smoke exposure: Yes Alcohol intake: never Caregiver/support person: Yes Lives independently: Yes Household members: spouse Housing: House Marital status: Pets and animals: Yes Pets & animals: dog(s) History of recent travel: No Current gender identity: Female Special kaiser needs: No Physical Exam Const: COMMON NORMALS: no acute distress and patient oriented x3 GENERAL APPEARANCE: cooperative HENMT: COMMON NORMALS: normocephalic, TM's normal bilaterally and Normal external nose present HEAD & SCALP: normal to inspection and normocephalic NOSE: Normal external nose present TYMPANIC MEMBRANE: TM's normal bilaterally MOUTH: Normal oral and palatal mucosa present THROAT: posterior oropharynx normal Eye: GENERAL EYE: appearance normal, both eyes and all related structures Neck/C-Spine: COMMON NORMALS: full ROM Lymph: LYMPHATIC: no lymphadenopathy noted Chest: COMMONS NORMALS: normal inspection of the chest Resp: COMMON NORMALS: normal respiratory effort and clear to auscultation bilaterally EFFORT & INSPECTION: Yes able to speak in complete sentences AUSCULTATION: clear to auscultation bilaterally Cardio: COMMON NORMALS: regular rate and regular rhythm RATE: regular rate RHYTHM: regular rhythm HEART SOUNDS: no murmurs GI: COMMON NORMALS: non-tender : COMMON NORMALS: Yes no CVA tenderness BLADDER/KIDNEY EXAM: Yes no CVA tenderness Back/Pelvis: COMMON NORMALS: no CVA tenderness and thoracic and lumbar spine normal to inspection Extremity: COMMON NORMALS: normal to inspection Neuro: COMMON NORMALS: patient oriented x3 and moves all extremities Psych: COMMON NORMALS: mental status grossly normal and cooperative Skin: COMMON NORMALS: no rashes or lesions noted GENERAL SKIN EXAM: no rashes or lesions noted Course Vital Signs: Vital signs: Vital Signs Temperature 100.5 F H 10/14/21 21:25 Pulse Rate 97 10/14/21 21:25 Respiratory Rate 18 10/14/21 21:25 Blood Pressure 136/78 10/14/21 22:15 Pulse Oximetry 92 10/14/21 22:15 MDM - SOB/Dyspnea MDM Narrative: Medical decision making narrative: 56-year-old female comes in today for complaints of fever and malaise since having her COVID-19 vaccine on the third. Patient reports symptoms started about 8 hours after vaccine administration. Patient denies any chest pain or shortness of breath. Patient reports mayonnaise, nausea, and fever. Patient denies any urinary difficulty. On exam lungs are clear to auscultation. Normal heart tones were noted. Abdomen soft nontender. No CVA tenderness. Skin was warm and dry. No edema was noted in the extremities. Differential diagnosis includes viral syndrome, vaccine reaction, unknown febrile illness. Reviewed exam with patient with recommendations for treatment with Zofran for nausea. Encourage Tylenol and ibuprofen for pain and fever. Encourage plenty of fluids. Patient was written excuse for 2 days for work. Patient should follow-up with primary care for further instruction or return to the ER for worsening symptoms such as shortness of breath and chest pain. Patient reported understanding of care plan with need for follow-up. Lab Data: Labs: Lab Results 10/14/21 21:09 SARS-CoV-2 Ag (Rap id) Negative (Negative) Discharge Plan Discharge Patient Disposition: Home Clinical Impression: Vaccine reaction Qualifiers: Encounter type: initial encounter Qualified Code(s): T50.Z95A - Adverse effect of other vaccines and biological substances, initial encounter Condition: Stable Prescriptions: New ondansetron 4 mg tablet,disintegrating 4 mg PO Q8H PRN (Reason: nausea and vomiting) 3 Days Qty: 6 RF: 0 No Action Chantix 1 mg tablet 1 mg PO BID Qty: 56 RF: 5 Discharge Orders: Discharge ED (Routine); Ordered 10/14/21 Ordered By: Hoang Momin Referrals: Minal Medeiros DO [Primary Care Provider] - Discharge Diet: Usual diet Discharge Activity: Increase activity as tolerated Patient Instructions: Opioid Safety Activity Restrictions/Additional Instructions: Get plenty of rest. Drink plenty of water. Use acetaminophen and ibuprofen for pains and fever. Use ondansetron, Zofran, 1 tablet every 8 hours as needed for nausea or vomiting. Follow-up with primary care in 2 to 3 days for recheck. Return to the ER for worsening symptoms, chest pain, persistent nausea and vomiting, or shortness of breath. At this time I think that you probably are just having a prolonged vaccine response, however, you may have been exposed to another viral illness at the time of your vaccine. Most viral illnesses will run their course within 7 to 10 days. So, I would expect you to start feeling better over the next 2 to 3 days. 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
[2021-10-14 22:15] VITALS: BP 136/78; O2SAT 92
[2021-10-14 22:35] VITALS: BP 130/75; PULSE 91; RESP 18; O2SAT 93
== END 2021-10-14 22:36 | disposition home or self-care (01) ==
PROVIDERS: Emergency Medicine; Emergency Provider Nurse Practitioner Family; PCP Family Medicine
DX: T88.7XXA Unspecified adverse effect of drug or medicament, initial encounter (principal); T50.B95A Adverse effect of other viral vaccines, initial encounter; F17.210 Nicotine dependence, cigarettes, uncomplicated; Z20.822 Contact with and (suspected) exposure to COVID-19
CPT/HCPCS: 71045; 87426; 99283

== ENCOUNTER 2021-12-22 14:53 | Outpatient (CLI) | payer BC, SELFPAY ==
[2021-12-22 15:24] LABS: Basophils % 0.6 %; Eosinophils # 0.2 10^3/uL (0.0-0.8); Eosinophils % 2.7 %; Hematocrit 41.5 % (37.0-47.0); Hemoglobin 13.4 g/dL (11.5-15.3); Lymphocytes # 2.2 10^3/uL (0.8-4.8); Lymphocytes % 33.8 %; Mean Corpuscular HGB Conc 32.3 g/dL (30.0-36.0); Mean Corpuscular Hemoglobin 31.3 pg (28.0-34.0); Mean Platelet Volume 9.5 fL (7.4-10.4); Monocytes # 0.7 10^3/uL (0.2-0.9); Monocytes % 10.8 %; Neutrophils % 51.9 %; Nucleated Red Blood Cells % 0 %; Platelet Count 269 10^3/cmm (130-400); Red Blood Count 4.28 10^6/uL (4.1-5.3); Red Cell Distribution Width 12.5 % (12.1-15.1); White Blood Count 6.4 10^3/uL (4.0-10.0)
[2021-12-22 15:57] LABS: Alanine Aminotransferase 13 U/L (0-33); Albumin Level 4.7 g/dL (3.5-5.2); Alkaline Phosphatase 84 IU/L (35-105); Aspartate Amino Transferase 13 U/L (0-32); Blood Urea Nitrogen 14 mg/dL (6-20); Calcium 8.9 mg/dL (8.5-10.5); Carbon Dioxide 26 mmol/L (22-29); Chloride 102 mmol/L (98-107); Globulin 2.6 g/dL (1.3-4.6); Glomerular Filtration Rate 74.2 mL/min (90-130); Glucose 94 mg/dL (65-115); Osmolality Calculated 290 mOsm/kg (285-295); Sodium 140 mmol/L (136-145); Total Bilirubin 0.2 mg/dL (0.15-1.2); Total Protein 7.3 g/dL (6.6-8.7)
== END 2021-12-22 14:54 | disposition home or self-care (01) ==
LOC: ONCMED 14:55
PROVIDERS: PCP Family Medicine; Visit Provider Internal Medicine Medical Oncology
DX: C50.111 Malignant neoplasm of central portion of right female breast (principal); Z17.0 Estrogen receptor positive status [ER+]; Z79.899 Other long term (current) drug therapy
CPT/HCPCS: 36415; 80053; 85025

== ENCOUNTER 2021-12-23 11:31 | Outpatient (CLI) | payer OTHER, SELFPAY ==
--- NOTE | 2021-12-23 16:42 | ONC FU_ITS ---
Dr. Marin Patient Follow-Up Note Patient: Nola Melendez Unit #: [id number]: 1965 Dicatated By: Gulshan Marin M.D.Date of Visit:Dec 23, 2021 Onc Med Follow-up/Prog Note Chief Complaint: Breast cancer. History of Present Illness: This is a 55 year-old woman with grade 2 invasive ductal carcinoma of the right breast, stage IIB (T1c, pN2a, M0), ER/OK positive and HER-2/matias negative. She had presented with an abnormal screening mammogram. The study, from 03/15/2019, showed a suspected spiculated mass with distortion and possible skin deformity in the deep midportion of the right breast centrally. The visualized lower x-ray lymph nodes appeared somewhat more plump or mildly enlarged as well. She had further evaluation with diagnostic mammogram and right breast ultrasound on 04/09/2019. The mammogram showed an irregular mass in the central to inferior right breast measuring approximately 2 cm. Ultrasound showed irregular hypoechoic mass within the central right breast measuring 1.5 x 2.0 x 1.6 cm. The margins were indistinct and there was posterior acoustic shadowing, highly suggestive of malignancy. The right axilla demonstrated at least 2 cortically thickened lymph nodes. She underwent ultrasound guided biopsy of the breast mass and of a right axillary lymph node on 04/26/2019. Pathology on the breast lesion showed grade 2 invasive ductal carcinoma which was ER positive at 94% and OK positive at 74%. The tumor was negative for overexpression of HER-2/matias, 1+ by IHC. The axillary lymph node was positive for metastatic ductal carcinoma with the size of the tumor measuring at least 7 mm. There was no extracapsular extension. The breast prognostic profile on the axillary lymph node showed ER positive at 95% and OK positive at 92%. HER-2/matias was equivocal by IHC (2+), but negative by FISH with amplification ratio 1.06 and 2.1 HER2 signals per cell. I had seen her initially on 05/28/2019. At that point I had recommended further evaluation with Oncotype DX. It showed a recurrence score of 19, corresponding to a recurrence risk of 16% with hormonal therapy, assuming 1-3 positive lymph nodes. A benefit with chemotherapy was not excluded. With those findings, I did not feel there is a definite indication for neoadjuvant chemotherapy. She then proceeded with right breast lumpectomy and right axillary lymph node dissection on 07/20/2019. Pathology showed invasive moderately differentiated mammary carcinoma with lobular differentiation. It measured 1.9 cm in greatest dimension. Focally did show high-grade features. Invasive carcinoma was present at the cranial and anterior margins. There was involvement in 8/8 axillary lymph nodes, the largest measuring 0.8 cm. Extracapsular extension was identified. She then underwent reexcision lumpectomy on 08/23/2019. There was no residual invasive carcinoma identified. Focal atypical lobular hyperplasia was present in the reexcision of the cranial margin, but the final margin was free of ALH. She began cycle 1 of Adriamycin/cyclophosphamide on 09/26/2019. She had significant fatigue following the chemotherapy, but she was able to tolerate it with acceptable toxicity. She then continued with cycle 2 on 10/11/2019, with cycle 3 on 10/25/2019, and with cycle 4 on 11/08/2019. On 11/22/2019 she began her 1st of 12 planned weekly cycles of paclitaxel. As of 12/20/2019 she had completed her 5th weekly infusion of paclitaxel. At her follow-up on 12/27/2019 her treatment was put on hold due to worsening neuropathy. She has began radiation to the right breast on 01/29/2020. She completed treatment on 03/10/2020. Total dose to the breast was 6000 cGy. She received 5000 cGy to the supraclavicular region. On 03/13/2020 she began adjuvant hormonal therapy with anastrozole 1 mg daily. She stopped taking it within 2 weeks due to multiple side effects, the most significant being vertigo and fatigue. On 04/02/2020 she began further adjuvant hormonal therapy with exemestane 25 mg daily. She has been in good general health. She has no other ongoing medical illnesses. Prior surgeries have been limited to right salpingo-oophorectomy for removal of a benign cyst and tubal ligation. She underwent natural menopause at age 50. She does have a history of smoking 1/2 pack of cigarettes daily since age 16. INTERIM HISTORY: She initially had stopped the exemestane after just a short time, as she had side effects similar to those she had experienced with anastrozole. However, as of her follow-up visit in January 2021 she had tried restarting the exemestane. She did experienced some side effects, including generalized bone pain and fatigue, but she was able to continue taking it. She is seen for a follow-up visit. She is still taking the exemestane. She says it makes her tired and it makes her hurt, but she has been able to work through it. She has normal activity. ECOG score 0. Her appetite is good. She has not had fever. She still has some hot flashes. She sometimes has sinus drainage, but that is seasonal. She has not had sore mouth or throat. She has nonproductive cough, attributable to smoking. She does not complain of shortness of breath or chest pain. She has no GI or complaints. Her pain is mainly in her hands and feet, and she also complains that they sometimes go numb. She has just occasional headache. She is not having anxiety or depression. Medications: Acetaminophen 1 - 2 Capsule (of 325 mg) Oral daily PRN, Ibuprofen 4 Tablet (of 200 mg) Oral PRN Allergies: Augmentin Vital Signs: Performed on Dec 23, 2021 11:39 Height - 65.00 in Weight - 177.2 lbs (LOW) BSA - 1.88 sq.m BMI - 29.49 Temperature - 97.1 F (LOW) Pulse - 82 /min Respiration - 16 /min BP - 106/69 mm(hg) O2 Sat - 95 % (LOW) Pain - 4 Fatigue - 7 Physical Examination: Constitutional - She looks good generally, Eyes - Sclerae nonicteric. Conjunctivae clear, ENMT - No lesions noted in the oral cavity, Hematologic/Lymphatic - No cervical, clavicular, or axillary adenopathy, Respiratory - Lungs are clear with some decrease in air movement bilaterally, Cardiovascular - Heart rhythm is regular. There is no murmur, gallop, or rub noted, Abdomen - Soft. Liver and spleen are not enlarged. There is no abdominal mass or ascites noted and there is no inguinal adenopathy, Extremities - No edema, Neurologic - No focal neurologic deficits noted. Lab/Imaging: CBC shows hemoglobin 13.4 g, white blood cell count 6400, and platelet count 269,000. Comprehensive metabolic profile is unremarkable. Problem List: 1. Grade 2 invasive ductal carcinoma of the right breast, stage IIB (T1c, pN2a, M0), ER/OK positive and HER-2/matias negative. Her Oncotype DX showed a recurrence score of 19, corresponding to a recurrence risk of 16% with hormonal therapy, assuming 1-3 positive lymph nodes. A benefit with chemotherapy was not excluded. 2. On her genetic screening she was found to be BRCA negative. Problems Addressed with this Encounter and Plan: Patient with grade 2 invasive ductal carcinoma of the right breast, stage IIB (T1c, pN2a, M0), ER/OK positive and HER-2/matias negative. She underwent ultrasound directed biopsy of right breast mass and right axillary lymph node on 04/26/2019. Her Oncotype DX showed a recurrence score of 19, corresponding to a recurrence risk of 16% with hormonal therapy, assuming 1-3 positive lymph nodes. A benefit with chemotherapy was not excluded. She underwent right breast lumpectomy with axillary lymph node dissection on 07/20/2019 followed by reexcision lumpectomy with final margins negative. She was given adjuvant chemotherapy with dose dense Adriamycin/cyclophosphamide followed by weekly Taxol. She completed 4 cycles of Adriamycin/cyclophosphamide from 09/26/2019 thru 11/08/2019. She had significant fatigue with it, but she otherwise tolerated it well. She then began her 1st of 12 planned weekly cycles of paclitaxel on 11/22/2019. As of 12/20/2019 she had completed her 5th weekly infusion of paclitaxel. Her treatment was stopped at that point due to worsening neuropathy. She then underwent radiation to the right breast/supraclavicular region. She completed treatment on 03/10/2020. The total dose to the breast was 6000 cGy. She received 5000 cGy to the supraclavicular region. She tolerated the treatment well. On 03/13/2020 she began adjuvant hormonal therapy with anastrozole 1 mg daily. She stopped within 2 weeks due to multiple side effects, the most significant being vertigo and fatigue. On 04/02/2020 she began further adjuvant hormonal therapy with exemestane 25 mg daily. It was also stopped within a short time due to similar side effects. However, as of her follow-up visit in January 2021 she restarted the exemestane. Since then she has continued to have side effects with it, mainly fatigue and musculoskeletal pain. She also appears to have some residual neuropathy. She continues overall she appears to be doing well clinically. At this point she appears to be tolerating the adjuvant hormonal therapy with acceptable toxicity. Thus far there has been no evidence of recurrence of the breast cancer. She continues exemestane 25 mg daily. She will be scheduled for a follow-up visit in 6 months. In the meantime, she will be given a prescription for meloxicam 15 mg daily. Signed By: Gulshan Marin M.D. <<Signature on File>>
== END 2021-12-23 11:32 | disposition home or self-care (01) ==
LOC: ONCMED 11:33
PROVIDERS: PCP Family Medicine; Visit Provider Internal Medicine Medical Oncology
DX: C50.111 Malignant neoplasm of central portion of right female breast (principal); Z17.0 Estrogen receptor positive status [ER+]; G62.9 Polyneuropathy, unspecified; Z79.818 Long term (current) use of other agents affecting estrogen receptors and estrogen levels; Z79.899 Other long term (current) drug therapy; Z92.3 Personal history of irradiation; Z92.21 Personal history of antineoplastic chemotherapy
CPT/HCPCS: 99214

== ENCOUNTER 2022-07-02 16:03 | Oncology outpatient (recurring) (ONCR) | payer OTHER, SELFPAY | END 2022-07-07 23:59 | disposition home or self-care (01) | LOC: ONCMED 16:03 | PROVIDERS: PCP Family Medicine; Visit Provider Internal Medicine Medical Oncology | DX: Z53.9 Procedure and treatment not carried out, unspecified reason (principal) ==

== ENCOUNTER → 2022-07-05 15:27 | Outpatient (BNVA) | payer OTHER, SELFPAY | PROVIDERS: PCP Family Medicine; Visit Provider Internal Medicine Medical Oncology | DX: C50.111 Malignant neoplasm of central portion of right female breast (principal) | CPT/HCPCS: 36415; 80053; 85025 ==

== ENCOUNTER 2022-08-27 14:30 | Observation (INO) | payer OTHER, SELFPAY ==
[2022-08-27 14:40] VITALS: BP 97/64; PULSE 126; RESP 15; TEMP 36.3; O2SAT 95; BMI 29.1
--- NOTE | 2022-08-27 14:50 | XR_ITS ---
WS: [id number] Portable AP upright chest, 08/27/2022 Clinical Data: dyspnea/cough Comparison: Portable chest, 10/14/2021. Findings: There are patchy bilateral lower lobe opacities which may represent atelectasis and/or pneu monia. There are small pleural effusions. The heart is normal. The upper lobes are clear. Monitor salvador ds are on the chest wall. No pneumothorax is seen. XR/XR chest 1V portable [id number] Impression: 1. Patchy bilateral lower lobe opacities which may represent atelectasis and/or pneumonia. 2. Small bilateral pleural effusions.
--- NOTE | 2022-08-27 14:50 | ECG_ITS ---
[facility] Test Date: 2022-08-27 Pat Name: Nola Melendez Department: Room: Gender: Female Office Support Clerk: : 1965 Requested By: Giles Ray Order Number: [id number] Farhana MD: Miles Skelton M.D. Measurements Intervals [place] Rate: 125 P: 38 WA: 126 QRS: 64 QRSD: 82 T: -11 QT: 336 QTc: 485 Interpretive Statements SINUS TACHYCARDIA ST DEVIATION AND MODERATE T-WAVE ABNORMALITY, CONSIDER ANTEROLATERAL ISCHEMIA [-0.1+ mV T-WAVE IN V3-V6] ST DEVIATION AND MODERATE T-WAVE ABNORMALITY, CONSIDER INFERIOR ISCHEMIA [-0.1+ mV T-WAVE IN II/aVF] Compared to ECG 06/15/2017 18:26:23 T-wave abnormality now present Possible ischemia now present Sinus rhythm no longer present Electronically Signed On 08-27-2022 16:50:21 CDT by Miles Skelton M.D. [id number]
[2022-08-27 15:01] VITALS: BP 97/64; PULSE 126; RESP 15; TEMP 36.3; O2SAT 95
--- NOTE | 2022-08-27 15:01 | US_ITS ---
WS: [id number] Complete ABDOMINAL ULTRASOUND HISTORY: hepatic failure COMPARISON: None available. Liver: 16.0 cm in length. Liver is normal size. Markedly coarsened echotexture throughout the liver. No bile duct dilatation. Loss of the normal portal triads. There are multiple small hypoechoic nodule s but no discrete mass. Portal Vein: Normal hepatopetal flow with monophasic waveform. Gallbladder: Poorly visualized gallbladder. The gallbladder appears small and contracted. Gallstones are likely. There is shadowing from the region of the gallbladder fossa. Gallbladder wall is difficul t to identified. Gallbladder wall thickness: 0.4 cm. Pancreas: Poorly visualized. CBD: 0.4 cm. Right kidney: 9.1 cm x 5.5 cm x 3.0 cm. No mass, cortical thickening or hydronephrosis. Left kidney: 9.5 cm x 4.8 cm x 4.8 cm. No mass, cortical thickening or hydronephrosis. Spleen: Normal size spleen measures 7.7 cm. Echogenic foci from granulomata. Abdominal aorta and IVC are within normal limits. Small amount of fluid adjacent to the liver and spleen probably due to pleural effusions. US/US abdomen complete* [id number] IMPRESSION: 1. Abnormal liver. Mildly enlarged liver is very heterogeneous with focal tiny decreased echogenic nodularity throughout which may be due to edema and hepati tis. No mass identified or bile duct dilatation. 2. Contracted gallbladder with stones. No duct dilatation. 3. Small bilateral pleural effusions.
--- NOTE | 2022-08-27 15:03 | ED_ITS ---
HPI - General Adult General: Chief complaint: Shortness of Breath/Dyspnea Stated complaint: SOB, Chest Pain, Back Pain Time Seen by Provider: 08/27/22 14:49 Source: patient Mode of arrival: ambulatory History of Present Illness: 56-year-old female presents the emergency room is obviously an extremely jaundiced. She has significant scleral and dermal icterus. She states has been like that for the last 2 weeks she states her [facility] doctor had sent her over here and told her there is something wrong with her gallbladder or her liver. She has a history of breast cancer and is currently on exemestane and meloxicam. She is not been on any recent statins or any other hepatotoxic drugs that she is aware of she does not take large amounts of Tylenol. She does not drink alcohol and has no history of any liver cirrhosis. She is complaining of bloating in her abdomen as well as some back pain chest pain and shortness of breath. Onset (ago): week(s) Severity: moderate Pain Consistency: constant Relieving factors: none Exacerbating factors: none Associated symptoms: Reports chest pain, dyspnea and weakness; Deny confusion, cough, diaphoresis, decreased appetite, fevers/chills, headache(s), malaise, nausea, rash, palpitations, seizures, short of breath, syncope or vomiting Review of Systems Const: Denies: fever(s), chills, fatigue, malaise or diaphoresis ENMT: Denies: throat pain, ear or mastoid pain, nasal discharge or nasal congestion Card: Reports: chest pain; Denies: palpitations, irregular heart rhythm, edema or syncope Resp: Reports: dyspnea; Denies: productive cough, non-productive cough or wheezing GI: Denies: nausea or vomiting : Denies: flank pain, difficulty voiding, dysuria, urinary frequency or urinary urgency Musc: Reports: back pain Skin/Breast: Denies: rash Neuro: Denies: headache(s) or confusion PFSH ED PFSH: Medical History (Updated 09/07/22 @ 09:10 by Giles Vincent DO) Breast cancer Horizontal nystagmus Metastatic cancer Surgical History History of lumpectomy of right breast (07/20/19) Right breast lumpectomy with right axillary lymph node dissection History of removal of Port-a-Cath History of right breast biopsy (04/26/19) Ultrasound directed biopsy of right breast mass and right axillary lymph node History of right salpingo-oophorectomy History of tubal ligation Family History Father Cancer Pancreatic Social History Smoking and tobacco status: former smoker Second hand smoke exposure: Yes Alcohol intake: never Caregiver/support person: Yes Lives independently: Yes Household members: spouse Housing: House Marital status: Pets and animals: Yes Pets & animals: dog(s) History of recent travel: No Current gender identity: Female Special kaiser needs: No Physical Exam Const: COMMON NORMALS: no acute distress GENERAL APPEARANCE: cooperative and comfortable ORIENTATION/CONSCIOUSNESS: Yes awake, Yes oriented to person, Yes oriented to place and Yes oriented to time HENMT: COMMON NORMALS: normocephalic, atraumatic, hearing grossly normal bilaterally, external ears normal, EAC's normal, TM's normal bilaterally, Normal nasal mucous membranes and turbinates present, moist oral mucous membranes and oropharynx normal HEAD & SCALP: normocephalic and atraumatic NOSE: Normal nasal mucous membranes and turbinates present EXTERNAL EAR: Yes external ears normal EXTERNAL AUDITORY CANAL: EAC's normal TYMPANIC MEMBRANE: TM's normal bilaterally Eye: COMMON NORMALS: Equal, round and reactive pupils present, EOMs intact bilaterally, conjunctivae normal and no scleral icterus CONJUNCTIVA: Yes conjunctivae normal PUPIL: Yes Equal, round and reactive pupils present Resp: COMMON NORMALS: normal respiratory effort, No retractions, No use of accessory muscles and clear to auscultation bilaterally AUSCULTATION: clear to auscultation bilaterally Cardio: COMMON NORMALS: regular rate, regular rhythm and No murmurs present (Cardio) RATE: regular rate RHYTHM: regular rhythm GI: COMMON NORMALS: Soft to palpation and No hepatosplenomegaly present AUSCULTATION: Yes normoactive bowel sounds PALPATION: Yes Soft to palpation, No Tenderness to palpation present (GI), No Guarding due to palpation present (GI) and Yes No hepatosplenomegaly present Extremity: COMMON NORMALS: normal to inspection, capillary refill normal, no clubbing, cyanosis or edema, no calf tenderness and no pedal edema Neuro: SENSORIUM/ORIENTATION: Yes oriented to person, Yes oriented to place and Yes oriented to time Skin: COMMON NORMALS: no rashes or lesions noted GENERAL SKIN EXAM: no rashes or lesions noted Course Vital Signs: Vital signs: Vital Signs Temperature 97.7 F 08/29/22 11:41 Pulse Rate 72 08/29/22 11:41 Respiratory Rate 15 08/29/22 11:41 Blood Pressure 103/68 08/29/22 11:41 Pulse Oximetry 94 08/29/22 11:41 Oxygen Delivery Me thod 08/29/22 08:00 MDM - General Adult Medical Decision Making Patient has had rapid liver enzymes just 6 to 8 weeks ago were normal not a markedly abnormal and she has a broad evidence of advanced metastasis. Discussed with Dr. Marin. Patient will be admitted for oncology consultation will review and attempt to look at possible treatment options. Discussed with hospitalist orders written Dr. Marin consulted for inpatient oncology care. Medical Records I reviewed the patient's medical records. Lab Data I reviewed the patient's lab results. : 08/29/22 04:20 08/29/22 04:20 Radiology Impressions Chest X-Ray 08/27/22 14:50 Impression: 1. Patchy bilateral lower lobe opacities which may represent atelectasis and/or pneumonia. 2. Small bilateral pleural effusions. Abdomen Ultrasound 08/27/22 15:01 IMPRESSION: 1. Abnormal liver. Mildly enlarged liver is very heterogeneous with focal tiny decreased echogenic nodularity throughout which may be due to edema and hepati tis. No mass identified or bile duct dilatation. 2. Contracted gallbladder with stones. No duct dilatation. 3. Small bilateral pleural effusions. Chest/Abdomen/Pelvis CT 08/27/22 19:05 IMPRESSION: 1. Negative for pulmonary embolus. 2. Large bilateral pleural effusions. 3. Minimal coronary artery atherosclerotic calcifications. 4. Scattered mildly enlarged mediastinal and bilateral perihilar lymph nodes measuring up to 10 mm, nonspecific 5. Patchy bilateral ground-glass airspace opacities may reflect alveolar edema and/or pneumonic infiltrates. IMPRESSION: 1. Heterogeneous appearance of the liver with multifocal apparent enhancing lesions measuring up to 10 mm concerning for metastatic disease, MRI could further evaluate this. 2. Small amount of nonspecific fluid in the pelvis. 3. Scattered prominent lymph nodes in the upper abdomen somewhat in the region of the amalia hepatis measuring up to 14 mm, concerning for metastatic disease. 4. Cholelithiasis with gallbladder wall thickening, ultrasound could further evaluate this. 5. Gastric antrum wall thickening to 12 mm may be due to nondistention, underlying gastritis or even perhaps a mass lesion is also a consideration depending on the clinical scenario. Laboratory Results WBC 12.3 10^3/uL (4.0-10.0) H 08/27/22 14:56 RBC 5.38 10^6/uL (4.1-5.3) H 08/27/22 14:56 Hgb 17.6 g/dL (11.5-15.3) H 08/27/22 14:56 Hct 47.9 % (37.0-47.0) H 08/27/22 14:56 MCV 89.0 fl (81-99) 08/27/22 14:56 MCH 32.7 pg (28.0-34.0) 08/27/22 14:56 MCHC 36.7 g/dL (30.0-36.0) H 08/27/22 14:56 RDW 16.1 % (12.1-15.1) H 08/27/22 14:56 Plt Count 203 10^3/cmm (130-400) 08/27/22 14:56 MPV 11.9 fL (7.4-10.4) H 08/27/22 14:56 Neut % (Auto) 80.6 % 08/27/22 14:56 Lymph % (Auto) 9.4 % 08/27/22 14:56 Ramsey % (Auto) 8.0 % 08/27/22 14:56 Eos % (Auto) 0.7 % 08/27/22 14:56 Baso % (Auto) 0.7 % 08/27/22 14:56 Neut # (Auto) 9.92 10^3/uL (1.8-7.7) H 08/27/22 14:56 Lymph # (Auto) 1.2 10^3/uL (0.8-4.8) 08/27/22 14:56 Ramsey # (Auto) 1.0 10^3/uL (0.2-0.9) H 08/27/22 14:56 Eos # (Auto) 0.1 10^3/uL (0.0-0.8) 08/27/22 14:56 Baso # (Auto) 0.1 10^3/uL (0.0-0.1) 08/27/22 14:56 Nucleated RBC % (auto) 0 % 08/27/22 14:56 Nucleated RBCs # 0.0 /100WBC 08/27/22 14:56 PT 13.90 SECONDS (12.1-14.9) 08/27/22 14:56 INR 1.04 (0.8-1.2) 08/27/22 14:56 APTT 31.1 SECONDS (23.9-36.7) 08/27/22 14:56 Sodium 128 mmol/L (136-145) L 08/27/22 14:56 Potassium 4.2 mmol/L (3.5-5.1) 08/27/22 14:56 Chloride 85 mmol/L (98-107) L 08/27/22 14:56 Carbon Dioxide 27 mmol/L (22-29) 08/27/22 14:56 Anion Gap 20.2 (5-19) H 08/27/22 14:56 BUN 29 mg/dL (6-20) H 08/27/22 14:56 Creatinine 0.9 mg/dL (0.5-0.9) 08/27/22 14:56 GFR Calculation 64.8 mL/min (90-130) L 08/27/22 14:56 Glucose 132 mg/dL (65-115) H 08/27/22 14:56 Calculated Osmolality 274 mOsm/kg (285-295) L 08/27/22 14:56 Lactic Acid 1.7 mmol/L (0.5-2.2) 08/27/22 15:36 Calcium 10.2 mg/dL (8.5-10.5) 08/27/22 14:56 Magnesium 2.4 mg/dL (1.7-2.3) H 08/27/22 14:56 Total Bilirubin 18.1 mg/dL (0.15-1.2) H* 08/27/22 14:56 AST 357 U/L (0-32) H 08/27/22 14:56 ALT 363 U/L (0-33) H 08/27/22 14:56 Alkaline Phosphatase 1310 U/L (35-105) H* 08/27/22 14:56 Ammonia 56 umol/L (11-51) H 08/27/22 14:56 Creatine Kinase 41 U/L (26-192) 08/27/22 14:56 Troponin T Baseline 13 ng/L (0-10) H 08/27/22 14:56 Total Protein 7.3 g/dL (6.6-8.7) 08/27/22 14:56 Albumin 3.5 g/dL (3.5-5.2) 08/27/22 14:56 Globulin 3.8 g/dL (1.3-4.6) 08/27/22 14:56 Lipase 88 U/L (13-60) H 08/27/22 14:56 Urine Color Yellow (Yellow) 08/27/22 15:15 Urine Appearance Clear (CLEAR) 08/27/22 15:15 Urine pH 7 (5-7) 08/27/22 15:15 Ur Specific [place] 1.015 (1.005-1.030) 08/27/22 15:15 Urine Protein Neg (Negative) 08/27/22 15:15 Urine Glucose (UA) Norm (Normal) 08/27/22 15:15 Urine Ketones 1+ (Negative) H 08/27/22 15:15 Urine Blood 2+ (Negative) H 08/27/22 15:15 Urine Nitrate Negative (Negative) 08/27/22 15:15 Urine Bilirubin 3+ (Negative) H 08/27/22 15:15 Urine Urobilinogen 8 mg/dL (Negative) H 08/27/22 15:15 Ur Leukocyte Esterase 1+ (Negative) H 08/27/22 15:15 Urine RBC 0-4 /hpf (0-2) H 08/27/22 15:15 Urine WBC 0-4 /hpf (0-5) H 08/27/22 15:15 Ur Squamous Epith Cells 15-25 /hpf (0-5) H 08/27/22 15:15 Amorphous Sediment Not Reportable 08/27/22 15:15 Urine Bacteria 1+ /hpf (NONE) H 08/27/22 15:15 Discharge Plan Discharge Patient Disposition: Admitted As Inpatient Admit Provider: Bee New Clinical Impression: Metastatic breast cancer, Bilateral pleural effusion, Breast cancer metastasized to brain Condition: Stable Coding Level of Care Code ED Estimator Paperboard Boxes for Chg Fwd Exam Comprehensive
[2022-08-27 15:04] LABS: Basophils # 0.1 10^3/uL (0.0-0.1); Basophils % 0.7 %; Eosinophils # 0.1 10^3/uL (0.0-0.8); Eosinophils % 0.7 %; Hematocrit 47.9 % (37.0-47.0); Hemoglobin 17.6 g/dL (11.5-15.3); Lymphocytes # 1.2 10^3/uL (0.8-4.8); Lymphocytes % 9.4 %; Mean Corpuscular HGB Conc 36.7 g/dL (30.0-36.0); Mean Corpuscular Hemoglobin 32.7 pg (28.0-34.0); Mean Platelet Volume 11.9 fL (7.4-10.4); Neutrophils # 9.92 10^3/uL (1.8-7.7); Neutrophils % 80.6 %; Nucleated Red Blood Cells % 0 %; Platelet Count 203 10^3/cmm (130-400); Red Blood Count 5.38 10^6/uL (4.1-5.3); Red Cell Distribution Width 16.1 % (12.1-15.1); White Blood Count 12.3 10^3/uL (4.0-10.0)
[2022-08-27 15:15] LABS: INR 1.04 (0.8-1.2)
[2022-08-27 15:16] LABS: Partial Thromboplastin Time 31.1 SECONDS (23.9-36.7)
[2022-08-27 15:26] LABS: Ammonia 56 umol/L (11-51)
[2022-08-27] MEDS: sodium chloride 0.9% 1,000 ML 999 ML IV ×2 (15:28→17:20)
[2022-08-27 15:31] LABS: Troponin(5th) Baseline 13 ng/L (0-10)
[2022-08-27 15:32] LABS: Creatine Phosphokinase 41 U/L (26-192); Lipase 88 U/L (13-60); Magnesium 2.4 mg/dL (1.7-2.3)
[2022-08-27 15:33] LABS: Alanine Aminotransferase 363 U/L (0-33); Albumin Level 3.5 g/dL (3.5-5.2); Anion Gap 20.2 (5-19); Aspartate Amino Transferase 357 U/L (0-32); Blood Urea Nitrogen 29 mg/dL (6-20); Calcium 10.2 mg/dL (8.5-10.5); Carbon Dioxide 27 mmol/L (22-29); Chloride 85 mmol/L (98-107); Globulin 3.8 g/dL (1.3-4.6); Glomerular Filtration Rate 64.8 mL/min (90-130); Glucose 132 mg/dL (65-115); Osmolality Calculated 274 mOsm/kg (285-295); Potassium 4.2 mmol/L (3.5-5.1); Sodium 128 mmol/L (136-145); Total Protein 7.3 g/dL (6.6-8.7)
[2022-08-27 15:48] LABS: Alkaline Phosphatase 1310 U/L (35-105); Total Bilirubin 18.1 mg/dL (0.15-1.2)
[2022-08-27 16:15] LABS: Lactic Sepsis W/Reflex 1.7 mmol/L (0.5-2.2)
[2022-08-27 16:30] LABS: Add Urine Microscopic? YES; Bilirubin Urine 3+ (Negative); Blood Urine 2+ (Negative); Glucose Urine UA Norm (Normal); Ketones Urine 1+ (Negative); Leukocyte Esterase Urine 1+ (Negative); Nitrate Urine Negative (Negative); Protein Urine Neg (Negative); Specific Gravity, Urine 1.015 (1.005-1.030); Urine Appearance Clear (CLEAR); Urine Color Yellow (Yellow); Urobilinogen Urine 8 mg/dL (Negative); pH Urine 7 (5-7)
[2022-08-27 16:31] LABS: Add Urine Culture? No; Bacteria Urine 1+ /hpf; RBC Urine 0-4 /hpf (0-2); Squamous Epithelial Cell Urine 15-25 /hpf (0-5); WBC Urine 0-4 /hpf (0-5)
--- NOTE | 2022-08-27 16:40 | P.HP_ITS ---
Providers/Chief Complaint Primary Care Provider: Minal Medeiros DO Chief Complaint: SOB, Chest Pain, Back Pain History of Present Illness Nola Melendez is a 56 year old female present to the hospital for chief complaint of worsening of generalized fatigue, poor nonproductive cough, rib pain. Patient is stating that she has been diagnosed with chest congestion and bronchitis, she has been getting treatment for that for last 2 months but her symptoms have gotten worse she decided to come to the hospital for further evaluation She has been diagnosed with severe disc hydration, she is tachycardic, extremely dehydrated Hyponatremic She is jaundiced Patient is stating that she will opt for palliative care if Dr. Marin recommend s, she is DNR/DNI for now Imaging in the ER showed mets to liver Review of Systems Const: Reports: chills, body aches, change in appetite and night sweats Eyes: Denies: change in vision ENMT: Denies: throat pain Card: Denies: chest pain Resp: Reports: dyspnea GI: Reports: nausea : Denies: flank pain Musc: Reports: extremity pain Skin/Breast: Denies: rash Neuro: Reports: headache(s) Psych: Reports: anxiety Endo: Denies: polyuria [place]/Lymph: Denies: easy bruising All/Imm: Denies: urticaria Medications/Allergies Home Medications Medication Instructions Recorded Confirmed Last Taken Type meloxicam 15 mg tablet 15 mg PO DAILY #90 tabs 03/22/22 08/27/22 08/27/22 Rx exemestane 25 mg tablet 25 mg PO DAILY 07/05/22 08/27/22 08/26/22 History albuterol sulfate 2.5 mg/3 mL 2.5 mg inhalation Q6H PRN 08/27/22 08/27/22 Unknown History (0.083 %) solution for nebulization Shortness Of Breath albuterol sulfate 90 mcg/actuation 2 puff inhalation Q6H PRN 08/27/22 08/27/22 Unknown History aerosol inhaler Shortness Of Breath Or Wheezing furosemide 40 mg tablet 40 mg PO DAILY 08/27/22 08/27/22 08/27/22 History potassium chloride 20 mEq 20 meq PO DAILY 08/27/22 08/27/22 08/27/22 History tablet,extended release(part/cryst) Allergies Allergy/AdvReac Type Severity Reaction Status Date / Time No Known Allergies Allergy Verified 08/27/22 16:50 PFSH Acute PFSH: Medical History Breast cancer Carcinoma of central portion of right breast in female, estrogen receptor positive Horizontal nystagmus Surgical History History of lumpectomy of right breast (07/20/19) Right breast lumpectomy with right axillary lymph node dissection History of removal of Port-a-Cath History of right breast biopsy (04/26/19) Ultrasound directed biopsy of right breast mass and right axillary lymph node History of right salpingo-oophorectomy History of tubal ligation Family History Father Cancer Pancreatic Social History Smoking and tobacco status: current every day smoker (0.5 ppd, smoked since age 16) cigarettes Packs smoked per day: 0.5 Years cigarettes smoked: 38 Second hand smoke exposure: Yes Alcohol intake: never Caregiver/support person: Yes Lives independently: Yes Household members: spouse Housing: House Marital status: Pets and animals: Yes Pets & animals: dog(s) History of recent travel: No Current gender identity: Female Special kaiser needs: No Vitals/I&O/Wt Last Vital Signs Temp 97.4 F L 08/27/22 15:01 Pulse 126 H 08/27/22 15:01 Resp 15 08/27/22 15:01 BP 97/64 08/27/22 15:01 Pulse Ox 95 08/27/22 15:01 O2 Del Method 08/27/22 15:01 Weight last 48 hrs Weight 79.379 kg Physical Exam Narrative: Patient looks extremely dehydrated Icteric Abdomen distended S1, S2 Currently on room air Hemodynamically stable Tachycardic Awake and alert Electrolyte Nonfocal neuro exam Data : 08/28/22 04:03 08/28/22 04:03 Micro: Microbiology 08/27/22 15:39 Blood Culture - Preliminary Blood SPECIMEN COLLECTED 08/27/22 15:36 Blood Culture - Preliminary Blood SPECIMEN COLLECTED A&P Assessment and plan (1) Metastatic cancer: (2) Breast cancer: (3) Brain metastases: Plan 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 Marin would recommend For now I would start her on IV fluids and antibiotics Concern for pneumonia Cancer with metastatic lesion to the liver DNR/DNI Regular diet Gallstones present, no CBD dilation, no right upper quadrant tenderness, no signs of acute cholecystitis I will request CT chest abdomen pelvis Patient stating that she recently had a PET scan which was done 1 day before she presented to the ER, will request Chelsea Hernández to fax us the report Bilateral pleural effusions, right slightly greater than left however she is not requiring oxygen She is not experiencing orthopnea PND I would not plan for any thoracentesis for now Attestations Medical Necessity Statement*: Anticipating discharge within 48 hours Time Spent in Patient Care: 40 Coding Level of Care Code Acute Gas Leak Inspector Helper for Chg Fwd Diagnoses Metastatic cancer C79.9 Breast cancer C50.919 Brain metastases C79.31
--- NOTE | 2022-08-27 16:58 | ECG_ITS ---
[facility] Test Date: 2022-08-27 Pat Name: Nola Melendez Department: Room: Gender: Female Range Management Specialist: : 1965 Requested By: Giles Ray Order Number: [id number] Farhana MD: Henny Arguelles M.D. Measurements Intervals [place] Rate: 94 P: 20 CO: 108 QRS: 64 QRSD: 88 T: -44 QT: 328 QTc: 412 Interpretive Statements SINUS RHYTHM WITH SHORT CO INTERVAL LOW QRS VOLTAGE IN EXTREMITY LEADS [QRS DEFLECTION < 0.5 mV IN LIMB LEADS] ST DEVIATION AND MODERATE T-WAVE ABNORMALITY, CONSIDER ANTEROLATERAL ISCHEMIA [-0.1+ mV T-WAVE IN V3-V6] ST DEVIATION AND MODERATE T-WAVE ABNORMALITY, CONSIDER INFERIOR ISCHEMIA [-0.1+ mV T-WAVE IN II/aVF] Compared to ECG 08/27/2022 14:50:03 Short CO interval now present Low QRS voltage now present Sinus tachycardia no longer present T-wave abnormality still present Possible ischemia still present Electronically Signed On 08-30-2022 23:18:10 CDT by Henny Arguelles M.D. [id number]
[2022-08-27 17:16] VITALS: RESP 18
[2022-08-27] MEDS: morphine 4 mg/mL SDV 1 mL IVP (17:16)
[2022-08-27 17:29] LABS: Troponin 5 2HR 8.64 ng/L (0-10)
[2022-08-27 17:39] LABS: Troponin 5 2HR Delta -4.36 ABS# (0-10)
--- NOTE | 2022-08-27 19:05 | CTR_ITS ---
PROCEDURE INFORMATION: Exam: CT Chest With Contrast; Diagnostic Exam date and time: 08/27/2022 7:18 PM Age: 56 years old Clinical indication: Other: Jaundice; Abdominal pain; Dyspnea; On breathing; Additional info: Mets TECHNIQUE: Imaging protocol: Diagnostic computed tomography of the chest with contrast. Radiation optimization: All CT scans at this facility use at least one of these dose optimization techniques: automated exposure control; mA and/or kV adjustment per patient size (includes targeted exams where dose is matched to clinical indication); or iterative reconstruction. Contrast material: OMNIPAQUE 350; Contrast volume: 100 ml; Contrast route: INTRAVENOUS (IV); COMPARISON: CR XR chest 1V portable [id number] 08/27/2022 2:59 PM RADIATION DOSE METRICS: Total DLP (mGy-cm): 858.4 FINDINGS: Lungs: Patchy bilateral ground-glass airspace opacities may reflect alveolar edema and/or pneumonic infiltrates. Pleural spaces: Large bilateral pleural effusions. Heart: Minimal coronary artery atherosclerotic calcifications. Lymph nodes: Scattered mildly enlarged mediastinal and bilateral perihilar lymph nodes measuring up to 10 mm, nonspecific. Vasculature: Unremarkable. No aortic aneurysm. Bones/joints: Unremarkable. No acute fracture. Soft tissues: Unremarkable. PROCEDURE INFORMATION: Exam: CT Abdomen And Pelvis With Contrast Exam date and time: 08/27/2022 7:18 PM Age: 56 years old Clinical indication: Other: Jaundice; Abdominal pain; Dyspnea; On breathing; Additional info: Mets TECHNIQUE: Imaging protocol: Computed tomography of the abdomen and pelvis with contrast. Radiation optimization: All CT scans at this facility use at least one of these dose optimization techniques: automated exposure control; mA and/or kV adjustment per patient size (includes targeted exams where dose is matched to clinical indication); or iterative reconstruction. Contrast material: OMNIPAQUE 350; Contrast volume: 100 ml; Contrast route: INTRAVENOUS (IV); COMPARISON: US abdomen complete* [id number] 08/27/2022 3:18 PM RADIATION DOSE METRICS: Total DLP (mGy-cm): 858.4 FINDINGS: Liver: Heterogeneous appearance of the liver with multifocal apparent enhancing lesions measuring up to 10 mm concerning for metastatic disease, MRI could further evaluate this. Gallbladder and bile ducts: Cholelithiasis with gallbladder wall thickening, ultrasound could further evaluate this. Pancreas: Normal. No ductal dilation. Spleen: Normal. No splenomegaly. Adrenal glands: Normal. No mass. Kidneys and ureters: Normal. No hydronephrosis. Stomach and bowel: Gastric antrum wall thickening to 12 mm may be due to nondistention, underlying gastritis or even perhaps a mass lesion is also a consideration depending on the clinical scenario. Appendix: No evidence of appendicitis. Intraperitoneal space: Unremarkable. No free air. No significant fluid collection. Vasculature: Unremarkable. No abdominal aortic aneurysm. Lymph nodes: Scattered prominent lymph nodes in the upper abdomen somewhat in the region of the amalia hepatis measuring up to 14 mm, concerning for metastatic disease. Urinary bladder: Unremarkable as visualized. Reproductive: Unremarkable as visualized. Bones/joints: Unremarkable. No acute fracture. Soft tissues: Unremarkable. Other findings: Small amount of nonspecific fluid in the pelvis. CT/CT chest abd pel w con* IMPRESSION: 1. Negative for pulmonary embolus. 2. Large bilateral pleural effusions. 3. Minimal coronary artery atherosclerotic calcifications. 4. Scattered mildly enlarged mediastinal and bilateral perihilar lymph nodes measuring up to 10 mm, nonspecific 5. Patchy bilateral ground-glass airspace opacities may reflect alveolar edema and/or pneumonic infiltrates. IMPRESSION: 1. Heterogeneous appearance of the liver with multifocal apparent enhancing lesions measuring up to 10 mm concerning for metastatic disease, MRI could further evaluate this. 2. Small amount of nonspecific fluid in the pelvis. 3. Scattered prominent lymph nodes in the upper abdomen somewhat in the region of the amalia hepatis measuring up to 14 mm, concerning for metastatic disease. 4. Cholelithiasis with gallbladder wall thickening, ultrasound could further evaluate this. 5. Gastric antrum wall thickening to 12 mm may be due to nondistention, underlying gastritis or even perhaps a mass lesion is also a consideration depending on the clinical scenario.
[2022-08-27 19:16] VITALS: BP 97/64; PULSE 126; RESP 18; TEMP 36.3; O2SAT 95
[2022-08-27] MEDS: iohexol 350 mg/mL 100 mL Btl IV (19:31)
[2022-08-27 19:55] VITALS: BMI 27.7
[2022-08-27] MEDS: sodium chloride 0.9% 1,000 ML 100 ML IV (20:25)
[2022-08-27 20:29] VITALS: PULSE 105; RESP 20; O2SAT 93
[2022-08-28] VITALS (7 sets, daily range): BP systolic 96–112; BP diastolic 51–72; PULSE 62–81; RESP 12–17; TEMP 36.6–37.4; O2SAT 92–96
[2022-08-28 04:46] LABS: Basophils # 0.1 10^3/uL (0.0-0.1); Basophils % 0.7 %; Eosinophils # 0.2 10^3/uL (0.0-0.8); Eosinophils % 2.1 %; Hematocrit 40.4 % (37.0-47.0); Hemoglobin 14.1 g/dL (11.5-15.3); Lymphocytes # 1.2 10^3/uL (0.8-4.8); Lymphocytes % 12.7 %; Mean Corpuscular HGB Conc 34.9 g/dL (30.0-36.0); Mean Corpuscular Volume 91.8 fl (81-99); Mean Platelet Volume 11.9 fL (7.4-10.4); Monocytes # 0.8 10^3/uL (0.2-0.9); Monocytes % 8.3 %; Neutrophils % 75.8 %; Nucleated Red Blood Cells % 0 %; Platelet Count 156 10^3/cmm (130-400); Red Cell Distribution Width 16.3 % (12.1-15.1); White Blood Count 9.1 10^3/uL (4.0-10.0)
[2022-08-28 05:12] LABS: Alanine Aminotransferase 284 U/L (0-33); Albumin Level 2.9 g/dL (3.5-5.2); Alkaline Phosphatase 967 U/L (35-105); Anion Gap 14.5 (5-19); Aspartate Amino Transferase 285 U/L (0-32); Blood Urea Nitrogen 24 mg/dL (6-20); Calcium 8.7 mg/dL (8.5-10.5); Carbon Dioxide 28 mmol/L (22-29); Chloride 94 mmol/L (98-107); Globulin 2.6 g/dL (1.3-4.6); Glomerular Filtration Rate 74.2 mL/min (90-130); Glucose 102 mg/dL (65-115); Osmolality Calculated 280 mOsm/kg (285-295); Potassium 3.5 mmol/L (3.5-5.1); Sodium 133 mmol/L (136-145); Total Protein 5.5 g/dL (6.6-8.7)
[2022-08-28 05:21] LABS: Total Bilirubin 14.1 mg/dL (0.15-1.2)
[2022-08-28] MEDS: cefTRIAXone 1,000 MG in sodium chloride 0.9% (plus) 50 ML 100 MG IV (06:11)
[2022-08-28] MEDS: sodium chloride 0.9% 1,000 ML 100 ML IV (06:11)
[2022-08-28] MEDS: azithromycin 250 mg Tablet 500 MG PO (08:40)
[2022-08-28] MEDS: sennosides-docusate Tablet 1 TAB PO (08:41)
--- NOTE | 2022-08-28 09:49 | P.PN_ITS ---
Subjective Subjective: She did get contrast yesterday This morning her pain is well controlled Tolerating her diet Still not endorsing good appetite Family at the bedside I did tell them about my CT chest abdomen pelvis findings I do not have path report I did recommend patient to talk with our palliative team in case she decides to go with palliative care down the road for now she is staying in the hospital for pain management, she is getting treatment for pneumonia Vitals/I&O/Wt Last Vital Signs Temp 97.9 F 08/28/22 08:43 Pulse 71 08/28/22 08:43 Resp 14 08/28/22 08:43 BP 109/72 08/28/22 08:43 Pulse Ox 96 08/28/22 08:43 O2 Del Method 08/28/22 08:43 08/27/22 08/28/22 08/28/22 22:59 06:59 14:59 Intake Total 480 / 480 976.667 / 1456.667 316.667 / 316.667 Balance 480 / 480 976.667 / 1456.667 316.667 / 316.667 Weight last 48 hrs Weight 75.523 kg Weight 79.379 kg Physical Exam Narrative: Patient is awake and alert currently on room air Does not look fluid overloaded S1, S2 No audible stridor or wheezing No conversational dyspnea Family at the bedside Awake and alert Nonfocal neuro exam Fatigue and lethargy has improved slightly as compared to yesterday Scleral icterus present Data : 08/28/22 04:03 08/28/22 04:03 Micro: Microbiology 08/27/22 15:39 Blood Culture - Preliminary Blood SPECIMEN COLLECTED 08/27/22 15:36 Blood Culture - Preliminary Blood SPECIMEN COLLECTED A&P Assessment and plan (1) Metastatic cancer: (2) Breast cancer: Plan Breast cancer with mets to liver Scleral icterus positive, high bilirubin related to liver mets, I will get DIC profile as well No signs of jaundice Bilateral pleural effusion however no shortness of breath not requiring oxygen No plan for thoracentesis Conservative management with opioids Community-acquired pneumonia she is on ceftriaxone and azithromycin No signs of sepsis No signs of PE Palliative consult DNR/DNI Regular diet Spoke with Dr. Marin who is planning to come see the patient at the bedside today, will follow up with his recommendation Attestations Medical Necessity Statement*: Palliative consult Time Spent in Patient Care: 30 Coding Level of Care Code Acute Valve Assembler for Chg Fwd Diagnoses Metastatic cancer C79.9 Breast cancer C50.919
--- NOTE | 2022-08-28 10:23 | PM.CONSULT ---
Providers/Reason For Consult Consulting Physician/Specialty*: Medical oncology Reason for Consult*: Metastatic breast cancer Requesting Physician: Bee New MD Attending Physician: Bee New MD Primary Care Provider: Minal Medeiros DO History of Present Illness History of Present Illness This is a 56 year-old woman with grade 2 invasive ductal carcinoma of the right breast, ER/MO positive and HER-2/matias low (2+ by IHC). Her disease was stage IIB (T1c, pN2a, M0) at initial diagnosis in April 2019. She now has had progression to stage IV with multiple sites of metastatic involvement, including extensive involvement in the liver. Her disease was diagnosed by ultrasound guided biopsy of a right breast mass and of a right axillary lymph node on 04/26/2019.? Pathology on the breast lesion showed grade 2 invasive ductal carcinoma which was ER positive at 94% and MO positive at 74%.? The tumor was negative for overexpression of HER-2/matias, 1+ by IHC.? The axillary lymph node was positive for metastatic ductal carcinoma with the size of the tumor measuring at least 7 mm.? There was no extracapsular extension.? The breast prognostic profile on the axillary lymph node showed ER positive at 95% and MO positive at 92%.? HER-2/matias was equivocal by IHC (2+), but negative by FISH with amplification ratio 1.06 and 2.1 HER2 signals per cell.? Oncotype DX showed a recurrence score of 19, corresponding to a recurrence risk of 16% with hormonal therapy, assuming 1-3 positive lymph nodes.? A benefit with chemotherapy was not excluded.? With those findings, there did not appear to be a definite indication for neoadjuvant chemotherapy. She then proceeded with right breast lumpectomy and right axillary lymph node dissection on 07/20/2019.? Pathology showed invasive moderately differentiated mammary carcinoma with lobular differentiation.? It measured 1.9 cm in greatest dimension.? Invasive carcinoma was present at the cranial and anterior margins.? There was involvement in 8/8 axillary lymph nodes, the largest measuring 0.8 cm.? Extracapsular extension was identified.? She then underwent reexcision lumpectomy on 08/23/2019.? There was no residual invasive carcinoma identified.? Focal atypical lobular hyperplasia was present in the reexcision of the cranial margin, but the final margin was free of ALH. She was given adjuvant chemotherapy with 4 cycles of Adriamycin/cyclophosphamide followed by weekly paclitaxel. The paclitaxel was stopped after her fifth weekly treatment due to worsening neuropathy. She then underwent adjuvant radiation, completed treatment on 03/10/2020 to a total dose of 6000 cGy to the breast.? She received 5000 cGy to the supraclavicular region.? On 03/13/2020 she began adjuvant hormonal therapy with anastrozole 1 mg daily.? She stopped taking it within 2 weeks due to multiple side effects, the most significant being vertigo and fatigue.? On 04/02/2020 she began further adjuvant hormonal therapy with exemestane 25 mg daily. At her follow-up visit on 07/05/2022 she had complained of increased fatigue, she was also having a productive cough in association with sinusitis symptoms. She was given antibiotic therapy with azithromycin. She continued adjuvant endocrine therapy with exemestane 25 mg daily. Subsequent to that visit, her cough persisted. She had been seen by Dr. Medeiros and she was found found on chest CT to have bilateral pleural effusions. She was recommended to have further evaluation with PET/CT. That study was done at [facility] in [place] on 08/27/2022. It showed moderate bilateral pleural fluid collections, greater on the right, with diffuse low-level FDG activity. Scattered areas of more focal pleural hypermetabolism were noted in the right lung. Patchy interstitial airspace opacities were noted within the lungs bilaterally with low FDG uptake consistent with multifocal infectious or inflammatory process. There were hypermetabolic mediastinal and hilar lymph nodes bilaterally and a small nodule within the right axilla showed low FDG uptake. Diffuse hypermetabolism was noted in the mid and distal esophagus, consistent with reflux esophagitis. There was diffuse heterogeneous appearance of the hepatic parenchyma with diffuse increased hypermetabolism. A few more focal hypermetabolic nodules were evident, consistent with hepatic metastases. There was a small volume of pelvic fluid with mild relative hypermetabolism of the fluid and adjacent peritoneal lining, consistent with peritoneal carcinomatosis. She had then presented to the emergency room yesterday with jaundice. Her bilirubin was significantly elevated at 18.1 mg/dL with alkaline phosphatase elevated at 1310/105 U/L, SGOT elevated at 357/32 U/L, and SGPT 363/33 U/L. Her CT scans showed large bilateral pleural effusions with scattered mildly enlarged mediastinal and hilar lymph nodes and with patchy bilateral groundglass airspace opacities. The liver showed a heterogeneous appearance with multifocal apparent enhancing lesions measuring up to 10 mm, concerning for metastatic disease. Scattered prominent lymph nodes in the upper abdomen in the region of the amalia hepatis measuring up to 14 mm. Abdominal ultrasound showed no evidence of bile duct obstruction. She was admitted for symptomatic management. With overnight IV hydration, she has been feeling a little better. Her bilirubin has come down a little, to 14 mg/dL. She indicates that she first noticed being jaundiced about 2 weeks ago. She has been feeling very poorly from a general standpoint. She has very limited activity. ECOG score is 2. Her appetite has been poor, and she has been having postprandial nausea. She has not had fever or night sweats. She continues to have cough and shortness of breath. She has not been having chest pain. Bowel and bladder function remain adequate, though she has not had very good urine output. She is not having any significant joint or bone pain. She does not complain of headache, and she has not been having any focal neurologic symptoms. Review of Systems Narrative: Review of systems is as noted above. Medications/Allergies Home Medications Medication Instructions Recorded Confirmed Last Taken Type meloxicam 15 mg tablet 15 mg PO DAILY #90 tabs 03/22/22 08/27/22 08/27/22 Rx exemestane 25 mg tablet 25 mg PO DAILY 07/05/22 08/27/22 08/26/22 History albuterol sulfate 2.5 mg/3 mL 2.5 mg inhalation Q6H PRN 08/27/22 08/27/22 Unknown History (0.083 %) solution for nebulization Shortness Of Breath albuterol sulfate 90 mcg/actuation 2 puff inhalation Q6H PRN 08/27/22 08/27/22 Unknown History aerosol inhaler Shortness Of Breath Or Wheezing furosemide 40 mg tablet 40 mg PO DAILY 08/27/22 08/27/22 08/27/22 History potassium chloride 20 mEq 20 meq PO DAILY 08/27/22 08/27/22 08/27/22 History tablet,extended release(part/cryst) Allergies Allergy/AdvReac Type Severity Reaction Status Date / Time No Known Allergies Allergy Verified 08/27/22 16:50 Current Medications Generic Name Dose Route Start Last Admin Trade Name Freq PRN Reason Stop Dose Admin Azithromycin 500 mg 08/28/22 09:00 08/28/22 08:40 Azithromycin 250 Mg Tablet PO 500 mg DAILY MARIBEL Administration Protocol Sodium Chloride 1,000 mls @ 75 mls/hr 08/27/22 19:51 08/28/22 08:51 Sodium Chloride 0.9% IV 75 mls/hr .[id number] MARIBEL Infusion Ceftriaxone Sodium 1,000 mg/ 50 mls @ 100 mls/hr 08/28/22 07:00 08/28/22 08:46 Sodium Chloride IV Infused Q24H MARIBEL Infusion Protocol Oxycodone HCl 10 mg/ Oxycodone 30 mg 08/27/22 19:51 08/28/22 08:41 HCl 20 mg PO Not Given BID MARIBEL Senna/Docusate Sodium 1 tab 08/28/22 09:00 08/28/22 08:41 Sennosides-Docusate Tablet PO 1 tab DAILY MARIBEL Administration PFSH Acute PFSH: Medical History (Updated 08/28/22 @ 09:51 by Bee New MD) Breast cancer Carcinoma of central portion of right breast in female, estrogen receptor positive Horizontal nystagmus Surgical History History of lumpectomy of right breast (07/20/19) Right breast lumpectomy with right axillary lymph node dissection History of removal of Port-a-Cath History of right breast biopsy (04/26/19) Ultrasound directed biopsy of right breast mass and right axillary lymph node History of right salpingo-oophorectomy History of tubal ligation Family History Father Cancer Pancreatic Social History Smoking and tobacco status: current every day smoker (0.5 ppd, smoked since age 16) cigarettes Packs smoked per day: 0.5 Years cigarettes smoked: 38 Second hand smoke exposure: Yes Alcohol intake: never Caregiver/support person: Yes Lives independently: Yes Household members: spouse Housing: House Marital status: Pets and animals: Yes Pets & animals: dog(s) History of recent travel: No Current gender identity: Female Special kaiser needs: No Vitals/I&O/Wt Last Vital Signs Temp 97.9 F 08/28/22 08:43 Pulse 71 08/28/22 08:43 Resp 14 08/28/22 08:43 BP 109/72 08/28/22 08:43 Pulse Ox 96 08/28/22 08:43 O2 Del Method 08/28/22 08:43 08/27/22 08/28/22 08/28/22 22:59 06:59 14:59 Intake Total 480 / 480 976.667 / 1456.667 316.667 / 316.667 Balance 480 / 480 976.667 / 1456.667 316.667 / 316.667 Weight last 48 hrs Weight 75.523 kg Weight 79.379 kg Physical Exam Narrative: Constitutional:?She appears generally weak. Eyes: She is obviously icteric. Conjunctivae clear. ENMT: No lesions noted in the oral cavity. Hematologic/Lymphatic: No cervical, clavicular, or axillary adenopathy. Respiratory: Lungs sound clear with diminished air movement bilaterally. Cardiovascular: Heart rhythm is regular. There is no murmur, gallop, or rub noted. Abdomen: Soft. Liver is not overtly enlarged or tender. Spleen is not palpable. There is no abdominal mass noted and there is no obvious ascites. There is no inguinal adenopathy noted. Extremities: No edema. Neurologic: No focal neurologic deficits noted. Data : 08/28/22 04:03 08/28/22 04:03 Micro: Microbiology 08/27/22 15:39 Blood Culture - Preliminary Blood SPECIMEN COLLECTED 08/27/22 15:36 Blood Culture - Preliminary Blood SPECIMEN COLLECTED A&P Assessment and plan (1) Metastatic cancer: Patient with grade 2 invasive ductal carcinoma of the right breast, ER/MO positive and HER-2/matias low (2+ by IHC). Her disease was stage IIB (T1c, pN2a, M0) at initial diagnosis in April 2019. Her treatment included lumpectomy/axillary lymph node dissection followed by adjuvant chemotherapy with Adriamycin/cyclophosphamide followed by weekly paclitaxel. She has been on adjuvant endocrine therapy following adjuvant radiation, which she had completed in March 2020. She now has progression to stage IV with PET/CT evidence of multiple sites of metastatic involvement, including extensive involvement in the liver and associated jaundice. She unfortunately has had very rapid progression of metastatic disease. Any further treatment will be problematic given the extent of her liver involvement and liver dysfunction. With HER2/matias low disease, I think the best treatment option for her would be a trial of chemotherapy with fam-trastuzumab deruxtecan, but that agent was not studied in patients with severe liver dysfunction, and I will have to investigate further to determine whether she would be eligible for that treatment. Overall, her treatment options at this point will be very limited, and the prognosis appears to be very poor. Consult Attestations Medical Necessity Statement: Not applicable. Coding Level of Care Code Acute Silver Recovery Operator for Jaki Duffy Diagnoses Metastatic cancer C79.9
[2022-08-28 11:51] LABS: INR 1.13 (0.8-1.2)
[2022-08-28 11:52] LABS: Fibrinogen 563 mg/dL (174-498)
[2022-08-28 11:56] LABS: D Dimer 0.87 ug/mIFEU (0-0.59)
[2022-08-28] MEDS: sodium chloride 0.9% 1,000 ML 75 ML IV (17:58)
[2022-08-29 04:00] VITALS: BP 109/68; PULSE 80; RESP 16; TEMP 36.6; O2SAT 93
[2022-08-29 04:42] LABS: Basophils # 0.1 10^3/uL (0.0-0.1); Basophils % 0.8 %; Eosinophils # 0.2 10^3/uL (0.0-0.8); Eosinophils % 2.1 %; Hematocrit 37.1 % (37.0-47.0); Hemoglobin 13.2 g/dL (11.5-15.3); Lymphocytes # 1.1 10^3/uL (0.8-4.8); Lymphocytes % 11.3 %; Mean Corpuscular HGB Conc 35.6 g/dL (30.0-36.0); Mean Corpuscular Hemoglobin 32.4 pg (28.0-34.0); Mean Corpuscular Volume 91.2 fl (81-99); Mean Platelet Volume 12.1 fL (7.4-10.4); Monocytes # 0.9 10^3/uL (0.2-0.9); Monocytes % 9.1 %; Neutrophils # 7.22 10^3/uL (1.8-7.7); Nucleated Red Blood Cells % 0 %; Platelet Count 164 10^3/cmm (130-400); Red Blood Count 4.07 10^6/uL (4.1-5.3); White Blood Count 9.5 10^3/uL (4.0-10.0)
[2022-08-29 05:08] LABS: Alanine Aminotransferase 252 U/L (0-33); Albumin Level 2.6 g/dL (3.5-5.2); Alkaline Phosphatase 961 U/L (35-105); Anion Gap 12.4 (5-19); Aspartate Amino Transferase 269 U/L (0-32); Blood Urea Nitrogen 19 mg/dL (6-20); Calcium 8.8 mg/dL (8.5-10.5); Carbon Dioxide 24 mmol/L (22-29); Chloride 98 mmol/L (98-107); Globulin 2.7 g/dL (1.3-4.6); Glomerular Filtration Rate 103.4 mL/min (90-130); Glucose 96 mg/dL (65-115); Osmolality Calculated 274 mOsm/kg (285-295); Potassium 3.4 mmol/L (3.5-5.1); Sodium 131 mmol/L (136-145); Total Protein 5.3 g/dL (6.6-8.7)
[2022-08-29 05:11] LABS: Total Bilirubin 13.5 mg/dL (0.15-1.2)
[2022-08-29] MEDS: cefTRIAXone 1,000 MG in sodium chloride 0.9% (plus) 50 ML 100 MG IV (06:03)
[2022-08-29] MEDS: sodium chloride 0.9% 1,000 ML 75 ML IV (06:33)
[2022-08-29 07:33] VITALS: PULSE 79; RESP 16; O2SAT 93
[2022-08-29 08:00] VITALS: BP 103/68; PULSE 72; RESP 15; TEMP 36.5; O2SAT 94
--- NOTE | 2022-08-29 09:15 | PM.DCS ---
Discharge Providers Date of Admission: 08/27/22 16:30 Date of Discharge: August 29, 2022 Attending Provider at Admission: Bee New MD Attending Provider at Discharge: Bee New MD Primary Care Provider: Minal Medeiros DO Diagnoses at Discharge Discharge Diagnosis (1) Metastatic cancer: Status: Acute Reason for Visit Reason for Visit: SOB, Chest Pain, Back Pain Hospital Course Hospital Course 56-year-old female with grade 2 invasive ductal carcinoma right breast now has been diagnosed with stage IV level because of metastatic disease to her liver, she presented to hospital with generalized weakness, fatigue and worsening of shortness of breath, she was kept on ceftriaxone and azithromycin throughout hospitalization CT scan does show lymphadenopathy, mets to liver her bilirubin level is trending down, Dr. Marin has seen her on Tuesday and recommended trial of chemotherapy with fam-trastuzumab deruxtecan, but that agent was not studied in patients with severe liver dysfunction, so he will let her know if there is a plan to start that medication, for now we will trending her liver enzymes. Patient does not want to go to a care home. She is DNR/DNI she would opt for hospice/comfort care if she gets worse from now onwards. Family is aware. She did not require oxygen despite having bilateral pleural effusions, she is not experiencing any tachypnea, tachycardia or shortness of breath she was able to lay flat as well. I have not requested for thoracentesis. She recently had a PET scan which showed evidence of advanced disease with metastatic involvement. Physical Exam Narrative: Patient is awake and alert currently on room air In good spirits, family at the bedside S1, S2 No audible stridor or wheezing No conversational dyspnea Awake and alert Nonfocal neuro exam Scleral icterus presen Discharge Data Studies Completed and Pending Completed Studies During Hospitalization Category Date Time Status CT chest abdomen pelvis [CT chest abd pel w con*] Cat Scan 08/27/22 19:05 Completed Routine XR chest 1V portable [id number] Stat Exams 08/27/22 14:50 Completed US abdomen complete* [id number] Stat Ultrasound 08/27/22 15:01 Completed Pending at discharge Category Date Time Status Blood Culture Stat Lab 08/27/22 15:39 Results Radiology Impressions Chest X-Ray 08/27/22 14:50 Impression: 1. Patchy bilateral lower lobe opacities which may represent atelectasis and/or pneumonia. 2. Small bilateral pleural effusions. Abdomen Ultrasound 08/27/22 15:01 IMPRESSION: 1. Abnormal liver. Mildly enlarged liver is very heterogeneous with focal tiny decreased echogenic nodularity throughout which may be due to edema and hepatitis. No mass identified or bile duct dilatation. 2. Contracted gallbladder with stones. No duct dilatation. 3. Small bilateral pleural effusions. Chest/Abdomen/Pelvis CT 08/27/22 19:05 IMPRESSION: 1. Negative for pulmonary embolus. 2. Large bilateral pleural effusions. 3. Minimal coronary artery atherosclerotic calcifications. 4. Scattered mildly enlarged mediastinal and bilateral perihilar lymph nodes measuring up to 10 mm, nonspecific 5. Patchy bilateral ground-glass airspace opacities may reflect alveolar edema and/or pneumonic infiltrates. IMPRESSION: 1. Heterogeneous appearance of the liver with multifocal apparent enhancing lesions measuring up to 10 mm concerning for metastatic disease, MRI could further evaluate this. 2. Small amount of nonspecific fluid in the pelvis. 3. Scattered prominent lymph nodes in the upper abdomen somewhat in the region of the amalia hepatis measuring up to 14 mm, concerning for metastatic disease. 4. Cholelithiasis with gallbladder wall thickening, ultrasound could further evaluate this. 5. Gastric antrum wall thickening to 12 mm may be due to nondistention, underlying gastritis or even perhaps a mass lesion is also a consideration depending on the clinical scenario. Laboratory Results WBC 9.5 10^3/uL (4.0-10.0) 08/29/22 04:20 RBC 4.07 10^6/uL (4.1-5.3) L 08/29/22 04:20 Hgb 13.2 g/dL (11.5-15.3) 08/29/22 04:20 Hct 37.1 % (37.0-47.0) 08/29/22 04:20 MCV 91.2 fl (81-99) 08/29/22 04:20 MCH 32.4 pg (28.0-34.0) 08/29/22 04:20 MCHC 35.6 g/dL (30.0-36.0) 08/29/22 04:20 RDW 17.0 % (12.1-15.1) H 08/29/22 04:20 Plt Count 164 10^3/cmm (130-400) 08/29/22 04:20 MPV 12.1 fL (7.4-10.4) H 08/29/22 04:20 Neut % (Auto) 76.0 % 08/29/22 04:20 Lymph % (Auto) 11.3 % 08/29/22 04:20 Stevens % (Auto) 9.1 % 08/29/22 04:20 Eos % (Auto) 2.1 % 08/29/22 04:20 Baso % (Auto) 0.8 % 08/29/22 04:20 Neut # (Auto) 7.22 10^3/uL (1.8-7.7) 08/29/22 04:20 Lymph # (Auto) 1.1 10^3/uL (0.8-4.8) 08/29/22 04:20 Stevens # (Auto) 0.9 10^3/uL (0.2-0.9) 08/29/22 04:20 Eos # (Auto) 0.2 10^3/uL (0.0-0.8) 08/29/22 04:20 Baso # (Auto) 0.1 10^3/uL (0.0-0.1) 08/29/22 04:20 Nucleated RBC % (auto) 0 % 08/29/22 04:20 Nucleated RBCs # 0.0 /100WBC 08/29/22 04:20 PT 14.90 SECONDS (12.1-14.9) 08/28/22 11:16 INR 1.13 (0.8-1.2) 08/28/22 11:16 APTT 31.0 SECONDS (23.9-36.7) 08/28/22 11:16 Fibrinogen 563 mg/dL (174-498) H 08/28/22 11:16 Fibrin Degrad Products Neg, <10 ug/mL (NEG) 08/28/22 11:16 D-Dimer 0.87 ug/mIFEU (0-0.59) H 08/28/22 11:16 Sodium 131 mmol/L (136-145) L 08/29/22 04:20 Potassium 3.4 mmol/L (3.5-5.1) L 08/29/22 04:20 Chloride 98 mmol/L (98-107) 08/29/22 04:20 Carbon Dioxide 24 mmol/L (22-29) 08/29/22 04:20 Anion Gap 12.4 (5-19) 08/29/22 04:20 BUN 19 mg/dL (6-20) 08/29/22 04:20 Creatinine 0.6 mg/dL (0.5-0.9) 08/29/22 04:20 GFR Calculation 103.4 mL/min (90-130) 08/29/22 04:20 Glucose 96 mg/dL (65-115) 08/29/22 04:20 Calculated Osmolality 274 mOsm/kg (285-295) L 08/29/22 04:20 Lactic Acid 1.7 mmol/L (0.5-2.2) 08/27/22 15:36 Calcium 8.8 mg/dL (8.5-10.5) 08/29/22 04:20 Magnesium 2.4 mg/dL (1.7-2.3) H 08/27/22 14:56 Total Bilirubin 13.5 mg/dL (0.15-1.2) H* 08/29/22 04:20 AST 269 U/L (0-32) H 08/29/22 04:20 ALT 252 U/L (0-33) H 08/29/22 04:20 Alkaline Phosphatase 961 U/L (35-105) H 08/29/22 04:20 Ammonia 56 umol/L (11-51) H 08/27/22 14:56 Creatine Kinase 41 U/L (26-192) 08/27/22 14:56 Troponin T Baseline 13 ng/L (0-10) H 08/27/22 14:56 Troponin T 120 Minute 8.64 ng/L (0-10) 08/27/22 16:55 Delta Troponin T -4.36 ABS# (0-10) L 08/27/22 16:55 Total Protein 5.3 g/dL (6.6-8.7) L 08/29/22 04:20 Albumin 2.6 g/dL (3.5-5.2) L 08/29/22 04:20 Globulin 2.7 g/dL (1.3-4.6) 08/29/22 04:20 Lipase 88 U/L (13-60) H 08/27/22 14:56 Urine Color Yellow (Yellow) 08/27/22 15:15 Urine Appearance Clear (CLEAR) 08/27/22 15:15 Urine pH 7 (5-7) 08/27/22 15:15 Ur Specific Anita 1.015 (1.005-1.030) 08/27/22 15:15 Urine Protein Neg (Negative) 08/27/22 15:15 Urine Glucose (UA) Norm (Normal) 08/27/22 15:15 Urine Ketones 1+ (Negative) H 08/27/22 15:15 Urine Blood 2+ (Negative) H 08/27/22 15:15 Urine Nitrate Negative (Negative) 08/27/22 15:15 Urine Bilirubin 3+ (Negative) H 08/27/22 15:15 Urine Urobilinogen 8 mg/dL (Negative) H 08/27/22 15:15 Ur Leukocyte Esterase 1+ (Negative) H 08/27/22 15:15 Urine RBC 0-4 /hpf (0-2) H 08/27/22 15:15 Urine WBC 0-4 /hpf (0-5) H 08/27/22 15:15 Ur Squamous Epith Cells 15-25 /hpf (0-5) H 08/27/22 15:15 Amorphous Sediment Not Reportable 08/27/22 15:15 Urine Bacteria 1+ /hpf (NONE) H 08/27/22 15:15 Vitals Last Vital Signs Temp 98 F 08/29/22 04:00 Pulse 79 08/29/22 07:33 Resp 16 08/29/22 07:33 BP 109/68 08/29/22 04:00 Pulse Ox 93 08/29/22 07:33 O2 Del Method 08/29/22 07:33 Discharge Plan Discharge Patient Disposition: Home Condition: Stable Prescriptions: New Robitussin Cough and Cold CF 2.5-5-50 mg/5 mL liquid 15 ml PO Q4H PRN (Reason: cough) Qty: 118 0RF Continued meloxicam 15 mg tablet 15 mg PO DAILY Qty: 90 3RF albuterol sulfate 2.5 mg /3 mL (0.083 %) solution for nebulization 2.5 mg inhalation Q6H PRN (Reason: Shortness Of Breath) albuterol sulfate 90 mcg/actuation HFA aerosol inhaler 2 puff INHALATION Q6H PRN (Reason: Shortness Of Breath Or Wheezing) Qty: 8 0RF Changed potassium chloride 20 mEq tablet,ER particles/crystals 20 meq PO DIRECTED Qty: 5 0RF Discontinued exemestane 25 mg tablet 25 mg PO DAILY Rx Instructions: must administer after a meal furosemide 40 mg tablet 40 mg PO DAILY Discharge Orders: Discharge Order (Routine); Ordered 08/29/22 Ordered By: Bee New Other Ambulatory Orders: Comprehensive Metabolic Panel (Routine) Timeframe: 3 Days Facility: [facility] - Location: Lab - Main Lab Ordered By: Bee New Referrals: Minal Medeiros DO [Primary Care Provider] - (Please call Tuesday to schedule a follow up appointment.) Patient Instructions: Antihistamine/Antitussive (By mouth), How to Stop Smoking (DC), Breast Cancer in Women (GEN), Cigarette Smoking and Your Health (GEN), Opioid Safety Discharge Attestations Time Spent in Discharge Care*: less than 30 min Quality Metrics Clinical Quality Measures [ No reported AMI, CVA or VTE this stay] Coding Level of Care Code Acute Chg FW DC note Diagnoses Metastatic cancer C79.9
[2022-08-29] MEDS: azithromycin 250 mg Tablet 500 MG PO (10:05)
[2022-08-29] MEDS: sennosides-docusate Tablet 1 TAB PO (10:06)
[2022-08-29 11:41] VITALS: BP 103/68; PULSE 72; RESP 15; TEMP 36.5; O2SAT 94
== END 2022-08-29 12:59 | disposition home or self-care (01) ==
LOC: ER 15:10 → MEDSURG 18:36
PROVIDERS: Admitting Provider Internal Medicine; Emergency Provider Family Medicine; PCP Family Medicine; Visit Provider Internal Medicine
DX: C50.911 Malignant neoplasm of unspecified site of right female breast (principal); C78.7 Secondary malignant neoplasm of liver and intrahepatic bile duct; C79.31 Secondary malignant neoplasm of brain; Z66 Do not resuscitate; F17.210 Nicotine dependence, cigarettes, uncomplicated
CPT/HCPCS: 36415; 71045; 71260; 74177; 76700; 80053; 81001; 82140; 82550; 83605; 83690; 83735; 84484; 85025; 85362; 85378; 85384; 85610; 85730; 87040; 93005; 96361; 96374; 99285; G0378; J0696; J2270; J7030; Q0144; Q9967